=== PATIENT | female | born 1960 | race Caucasian/White ===

== ENCOUNTER 2017-08-18 08:00 | Outpatient (RCR) | payer OTHER, SELFPAY ==
--- NOTE | 2017-08-04 09:14 | HP.PTEVAL_ITS ---
Patient's Visit Information WENDY CANNON is a 57 year old F referred to Physical Therapy by DO WILMAR Liang with a diagnosis of Right Knee. Date of Evaluation: 08/04/17 Physical Therapist: Flower Blanco - Visit Plan Frequency: 3x /Week Duration: 3 Weeks Plan: Focus on hip/core s/s. - Subjective Subjective: Patient reports that she had a bad fall in March on [place] in [facility]- landed on knees first and then face planted. Right knee was worse than left. Went to Dr. Lael in May- has been doing bike and has started doing the arc obedience trainer and strength. Feels the right is lagging behind. agg: impact or going down stairs, pickleball or tennis hurts. Worst: 4 /10 Pain is located on top of the knee cap but Dr. Leal thinks its from the meniscus- no injections. eases: as soon as she stops the pain goes away. Best : 0/10. Feels like when you hit a nerve. Works out here. Sleep: sometimes wakes her up but its better. X-rays- contusion MRI: offered but declined. PMHx : migraines Meds: butabiterol, maxolt. - Objective Posture: FH,RS. Gait: no deviation noted. Stairs:asc/desc 8 recip with poor control with descent. HR/TR: able. SLS: 15 sec with increased muscle activation and sway. Palpation: significantly tender along medial joint line. ROM: WNL. Strength: Ankle: 5/5, Knee: 4+/5, Hip: 4/5 throughout Core: fair plus - Goals Goal 1:: Patient will be I with HEP and progression Goal Time Frame: 4-6 Weeks Goal 2:: Patient will asc/desc 8 stairs recip with no HR and good control Goal Time Frame: 4-6 Weeks Goal 3:: Patient will report 0/10 pain for 1 week Goal Time Frame: 4-6 Weeks Goal 4:: Patient will demo 5/5 strength in hips Goal Time Frame: 4-6 Weeks - Rehabilitation Potential Physical Therapy Diagnosis: Patient presents with hypomobility- she has decreased LE and core s/s leading to poor posture and increased pain with ADL's. Rehabilitation Potential: Good - Anticipated Interventions Patient/Client Instruction: Educate patient on: Benefits of Fitness Program For the Purpose of:: To improve ability to perform ADL's Therapeutic Exercise to Include: Strength training, Endurance training, Balance training, Agility training, Body mechanics, Postural training, Gait and locomotor training, Dynamic Lumbar Stabilization For the Purpose of:: To improve muscle performance and motor function TENS: Yes Cryotherapy (ice pack, ice massage): Yes Thermo therapy (hot pack): Yes Ultrasound (thermal/non thermal): Yes Thank you for the opportunity to evaluate your patient. For Medicare and Medicare HMO plans, please review the plan of care and approve it. It will need to be FAXED BACK to us at [phone] for Medicare purposes. Please let me know if there are questions or concerns regarding this plan of care. Physician Signature: Date:
--- NOTE | 2017-08-18 08:28 | HP.PTDCSUM_ITS ---
HP - PT D/C Summary It has been my pleasure to treat WENDY CANNON under orders from Taylor Rao DO, for the diagnosis of Right Knee for a total of 6 visit (s). Discharge Date: Please see the following information for a summary of their discharge status. - Subjective Subjective: Patient reports that she is doing great- has not had pain since 2 weeks ago. She is very happy and back to all her normal stuff - Pain Right Knee Pain Intensity (Out of 10): 0 - Overall Improvement % Improvement: 100 - Objective Objective/Function: Gait: no deviation. ROM: WNl. Stairs: WNL good control- asc/desc 8' recip no HR. SLS: 30 sec no LOB. Strength: 5/5 Core: good - Goals Goal 1:: Patient will be I with HEP and progression Goal Progress: Goal Met Goal 2:: Patient will asc/desc 8 stairs recip with no HR and good control Goal Progress: Goal Met Goal 3:: Patient will report 0/10 pain for 1 week Goal Progress: Goal Met Goal 4:: Patient will demo 5/5 strength in hips Goal Progress: Goal Met - Plan Plan: HEP: Elliptical: x10 min (alt between fwd and bwd) to increase WBing cardio. Step Up to Balance onto [address]: Green [place], 2x10 bilat. Lateral Band Walks: 32ft with BTB x2 laps. Modified Side Plank Clamshells: BTB , 2x15 bilat. Prone Over SB [place] UE/LE: 3x10. Supine Hip Flex: legs on SB in Bridge with GTB, 3x10 bilat. SB HSC in static Bridge: 3x10. Prone HSC (11): 12 #, 3x10. Seated Hip Abd (4): 35#, 3x10. Seated Hip Add (13): 35#, 3x10. Foam Roll HS, Quad, Calves - followed by static stretching same. Ball Ab Rollouts: 2x12x3. Goblet Squat with Band: Blue 3x8 20#. Split Squat: 2x8 ea leg- 2 AirEx. 1-leg RDL Box Touch: 12 2x8 ea leg. Lateral Step-down: 4 2x12 ea leg - D/C Information If there are questions or concerns regarding this patient's physical therapy, please feel free to call me at [phone]. Thank you for the referral of this patient. Sincerely, Flower Blanco
== END 2017-08-18 19:00 | disposition home or self-care (01) ==
LOC: PT 08:00
PROVIDERS: Family Provider Family Medicine; PCP Family Medicine; Visit Provider Orthopaedic Surgery
DX: M25.561 Pain in right knee (principal); M22.2X1 Patellofemoral disorders, right knee; S83.241D Other tear of medial meniscus, current injury, right knee, subsequent encounter
CPT/HCPCS: 97110; 97161; 97530

== ENCOUNTER 2018-07-21 20:21 | Emergency (ER) | payer OTHER, SELFPAY ==
[2018-07-21 20:22] VITALS: BP 140/87; PULSE 105; RESP 27; TEMP 36.6; O2SAT 99; BMI 23.9
[2018-07-21] MEDS: Ondansetron 4 MG/2 ML Vial IV (20:53)
[2018-07-21] MEDS: Ketorolac 15 MG/ML Vial IV (20:55)
--- NOTE | 2018-07-21 20:56 | CT_ITS ---
STUDY: CT ABDOMEN AND PELVIS WITHOUT CONTRAST REASON FOR EXAM: Female, 58 years old. Left flank pain RADIATION DOSAGE (If Supplied By Facility): CTDIvol = ( 6.17 ) mGy, DLP = ( 322.14 ) mGycm TECHNIQUE: Transaxial images were obtained from the dome of the diaphragm to the symphysis pubis without oral contrast, and without intravenous contrast. Sagittal and coronal images were reconstructed. Individualized dose optimization techniques were used for this CT. COMPARISON: None. FINDINGS: The visualized lung bases are unremarkable. The visualized portions of the heart are within normal limits. Normal liver. Normal gallbladder and extrahepatic biliary system. Normal spleen. Normal pancreas. Normal bilateral adrenal glands. There are at least 5 stones in each kidney measuring 0.2 to 0.7 cm. There is mild left hydronephrosis. There is 0.4 cm left mid abdominal calcifications the L4 level with probable ureteral stone, series 2 image 100/190. There are multiple calcified phleboliths in the pelvis. Normal visualized stomach. Normal small intestine. Normal colon. There is abundant stool The appendix is visualized and appears normal. There is atherosclerotic calcification of the abdominal aorta, without a demonstrated aneurysm. Normal inferior vena cava. Normal retroperitoneum. Normal urinary bladder. Normal visualized uterus. There is no free fluid in the abdomen or pelvis. Normal abdominal wall. Mild degenerative change of the spine. CT/Abdomen/Pelvis without Cont IMPRESSION: Bilateral renal stones. Left ureteral stone with hydronephrosis. Electronically Signed: Chas Diaz MD at 22:00 EST , Service support ,
[2018-07-21] MEDS: Morphine 4 MG/ML Syringe IV (20:57)
--- NOTE | 2018-07-21 20:59 | ED.DCSUM_ITS ---
- ER Visit Summary Date of Service: 07/21/18 Chief Complaint: [Left flank pain] History of Present Illness: The patient is a 58 F [presents to the emergency department complaint of left-sided flank pain that started suddenly around 7:30 PM. Patient rates her pain a 10 out of 10. Patient denies nausea or vomiting with it. She denies any diarrhea. She denies urinary symptoms. Patient states the pain came on suddenly. She denies any injury to her back. Patient states the pain radiates to the front of the abdomen. Patient is never had discomfort like this before.] Physical Examination: [HEENT-PERRLA, EOMI. Cranial nerves II through XII grossly intact. TMs clear. Mucous membranes moist. No adenopathy. Patient writhing in pain on cot. Patient appears uncomfortable. Cardiovascular-regular rate and rhythm without murmur or ectopy Lungs-clear to auscultation, chest wall stable without crepitus or subcu emphysema Abdomen-normoactive bowel sounds, soft. Patient has tenderness palpation over left lower quadrant with some guarding. Patient has CVA tenderness on the left. Extremities-intact ?4, normal range of motion, normal pulses, atraumatic] Test Results: [CBC with it was normal. Chemistries were normal. Urinalysis showed 10-25 RBCs and 0-[address] flank showed a 4 mm stone left mid ureter about L4 level with mild hydronephrosis. Patient also had multiple kidney stones through both kidneys.] Emergency Department Course and Treatment: Patient initially medicated with morphine, Zofran, and Toradol. Patient continued to experience pain and was given half a milligram of Dilaudid. Patient became pain-free.] Treatment Plan: [Patient had urine strainers dispensed to her as well as [place] and Zofran for tonight. Patient will be given a prescription for Zofran and [place] and a referral to urology on-call Dr. Leroy Sanchez. Patient advised to return if worsening pain or fever, vomiting, or condition should worsen anyway.] Disposition: [Discharged home in stable condition] Impression: [Kidney stone with colic] This note was generated with [employer] dictation software. It may contain incorrect words, spelling, and punctuation that were not noted in review of the chart prior to signing ED Disposition - Plan for ED Patient: Chief Complaint: Flank Pain Referrals: Noel Farrell MD [Primary Care Provider] -
[2018-07-21] MEDS: 0.9% Normal Saline 1,000 ML 125 ML IV (21:00)
[2018-07-21] MEDS: HYDROmorphone 1 MG/ML Syringe IV (21:11)
[2018-07-21 21:16] LABS: Absolute Lymphocyte Count 2.77 X10^3/ul (0.83-4.51); Absolute Neutrophil Count 2.6 X10^3/uL (2.0-7.7); Basophil# 0.03 X10^3/uL; Basophil% 0.5 % (0-1); Eosinophil# 0.04 X10^3/uL; Eosinophils% 0.7 % (0-5); Hematocrit 37.1 % (37-47); Hemoglobin 12.3 g/dl (12.0-15.0); Lymphocyte # 2.77 X10^3/ul (4.0); Lymphocyte % 47.2 % (19-41); Mean Corp Hgb Conc 33.2 g/gl (32-36); Mean Corpuscular Hgb 32.1 pg (27.0-32.0); Mean Corpuscular Volume 96.9 fL (81-99); Mean Platelet Vol. 10.5 fl (6.2-12.0); Monocyte# 0.46 X10^3/uL; Monocyte% 7.8 % (0-10); Neutrophil # 2.57 X10^3/uL (2.7-7.7); Neutrophil % 43.8 % (47-70); Platelet Count 206 K/mm3 (150-450); RBC Distribution Width CV 13.4 % (11.6-14.6); RBC Distribution Width SD 47.5 fl (35.1-43.9); Red Blood Count 3.83 M/mm3 (4.2-5.4); White Blood Count 5.9 K/mm3 (4.4-11.0)
[2018-07-21 21:17] LABS: POSITIVE COUNT NO; POSITIVE DIFFERENTIAL NO; POSITIVE MORPHOLOGY NO
[2018-07-21 21:23] LABS: Anion Gap 11 (5-15); BUN 22 mg/dL (7-18); BUN/Creat Ratio 23.6 RATIO (10-20); Calcium,Total 9.2 mg/dL (8.5-10.1); Chloride 105 mmol/L (98-107); Creatinine, Serum 0.93 mg/dL (0.55-1.02); EST Glomerular Filtration Rate 65 mL/min (>60); Est Glom Filt Rate - Afr Amer 79 mL/min (>60); Estimated Creatinine Clearance 53.21 ml/min; Glucose 162 mg/dL (74-106); Potassium 3.5 mmol/L (3.5-5.1); Sodium Level 140 mmol/L (136-145)
[2018-07-21 22:55] LABS: Bacteria 0 SEEN /hpf (None Seen); Mucous, Urine 0 SEEN /hpf (<or=2+)
[2018-07-21 23:00] VITALS: BP 124/80; PULSE 81; RESP 16; O2SAT 100
[2018-07-21 23:03] LABS: Color, Urine Yellow (Yellow); Glucose, Dipstick Normal (Normal); Ketone-Dipstick Negative (Negative); Leukocyte Esterase-Dipstick Negative /ul (Negative); Nitrite-Dipstick Negative (Negative); Occult Blood-Urine 150 /ul (Negative); Protein-Dipstick Negative (Negative); Urine Bilirubin Dipstick Negative (Negative); Urine Clarity Clear (Clear); Urine Urobilinogen Normal (Normal)
[2018-07-21 23:09] LABS: Red Blood Cells-Urine 10-25 SEEN /hpf (0-5); Squamous Epithelial Cells - UA 0-5 SEEN /hpf (5-10); White Blood Cells 0-5 SEEN /hpf (0-5)
[2018-07-21] MEDS: proMETHazine 25 MG/ML Syringe 12.5 MG IV (23:13)
--- NOTE | 2018-07-21 23:28 | ED.DEP ---
ED Disposition - Plan for ED Patient: Chief Complaint: Flank Pain Instructions: ED Stone Renal W Colic Prescriptions: Hydrocodone Bitart/Apap 5-325 [[place] 5MG-325MG] 1 tab PO Q4H PRN PRN 2 Days #20 tab PRN Reason: Pain Ondansetron [Zofran Odt] 4 mg PO Q8H PRN PRN #10 tab PRN Reason: Nausea Naproxen [Naprosyn] 500 mg PO BID PRN #20 tab Referrals: Noel Farrell MD [Primary Care Provider] - Lavelle Sanchez MD [STAFF PHYSICIAN] - 3-5 Days
[2018-07-21] MEDS: Ondansetron ODT 4 MG Tablet PO (23:48)
[2018-07-21] MEDS: HYDROcodone Bitartrate/Apap 5/325 Tablet PO (23:48)
[2018-07-21 23:50] VITALS: BP 124/80; PULSE 80; RESP 16; O2SAT 99
== END 2018-07-21 23:51 | disposition home or self-care (01) ==
PROVIDERS: Emergency Provider Emergency Medicine; Family Provider Family Medicine; PCP Family Medicine
DX: R10.9 Unspecified abdominal pain (principal); N13.2 Hydronephrosis with renal and ureteral calculous obstruction
CPT/HCPCS: 74176; 80048; 81001; 85025; 96361; 96374; 96375; 99284; J7030; A4216; J2405

== ENCOUNTER → 2018-07-23 08:42 | Outpatient (CLI) | payer OTHER, SELFPAY ==
[2018-07-21 20:22] VITALS: BMI 23.9
[2018-07-23 10:03] LABS: PTHIN 75.9 pg/mL (18.4-80.1)
[2018-07-23 10:43] LABS: Anion Gap 10 (5-15); BUN 24 mg/dL (7-18); Calcium,Total 8.6 mg/dL (8.5-10.1); Chloride 107 mmol/L (98-107); Creatinine, Serum 1.09 mg/dL (0.55-1.02); EST Glomerular Filtration Rate 54 mL/min (>60); Est Glom Filt Rate - Afr Amer 66 mL/min (>60); Glucose 88 mg/dL (74-106); Potassium 3.9 mmol/L (3.5-5.1); Sodium Level 142 mmol/L (136-145)
== END ==
PROVIDERS: Family Provider Family Medicine; PCP Family Medicine; Referring Provider Urology; Visit Provider Urology
DX: N20.0 Calculus of kidney (principal)
CPT/HCPCS: 36415; 80048; 83735; 83970; 84100

== ENCOUNTER → 2018-07-27 16:56 | Outpatient (CLI) | payer OTHER, SELFPAY ==
[2018-07-21 20:22] VITALS: BMI 23.9
--- NOTE | 2018-07-27 | CALC_PTH ---
PATIENT: WENDY CANNON LOC: [facility] U#:[id number] AGE/SX: 64/F ROOM: RE07/27/[address]: Dr. Lavelle Sanchez MD : 1960 BED: DIS: SPEC #: [id number] RECD: 07/28/18 10:59 STATUS: CALEB LIEN #: [id number] ZANE: 07/27/18 00:[address]: Lavelle Sanchez DEPT: SURGICAL PATHOLOGY RECD BY: Barak Beaver ENTERED: 07/28/18 11:00 SP TYPE: Calculi OTHR DR: Dr. Noel Farrell MD Tissues: CALCULI Procedures: Surgery Specimen Level I HEADER OPERATION: Not noted PRE-OP DIAGNOSIS: N20.0 TISSUE SUBMITTED: Stone analysis GROSS DIAGNOSIS A fragment of stone, submitted for stone analysis. SJ:jez 07/28/18 COMMENT The calculus is submitted in its entirety for chemical stone analysis. The results from this study will be reported separately. GROSS DESCRIPTION Received is one container labeled with the patient's name and not further designated. The specimen consists of a fragment of brownish-black stone measuring 0.3 x 0.2 x 0.2 cm. The entire specimen is submitted for stone analysis. / SJ:jez 07/28/18 CPT: 84527
== END ==
PROVIDERS: Family Provider Family Medicine; PCP Family Medicine; Referring Provider Urology; Visit Provider Urology
DX: N20.0 Calculus of kidney (principal)
CPT/HCPCS: 88300

== ENCOUNTER → 2018-08-05 07:39 | Outpatient (CLI) | payer OTHER, SELFPAY ==
[2018-07-21 20:22] VITALS: BMI 23.9
== END ==
PROVIDERS: Family Provider Family Medicine; PCP Family Medicine; Referring Provider Family Medicine; Visit Provider Family Medicine
DX: Z12.31 Encounter for screening mammogram for malignant neoplasm of breast (principal)

== ENCOUNTER → 2018-09-02 09:23 | Outpatient (CLI) | payer OTHER, SELFPAY ==
[2018-08-05 10:06] VITALS: BMI 23.9
--- NOTE | 2018-09-02 09:25 | BI_ITS ---
MAMMOGRAPHY - BILATERAL SCREENING REASON FOR EXAM: Female, 58 years old. Routine annual screening examination. PERTINENT HISTORY: Non-contributory. TECHNIQUE: Digital bilateral breast aisha (3D mammographic acquisition) in the CC and MLO projections. 2-D mediolateral oblique (MLO) and craniocaudad (CC) views of both breasts were obtained. CAD: Full Field Digital Mammography with Computer Added Detection was performed. COMPARISON: Comparison is made with prior study. 2017 and May 20, 2016. FINDINGS: Breast Composition: The breasts are heterogeneously dense, which may obscure small masses. There are no dominant masses or suspicious calcifications. No other significant abnormalities are identified. There has been no significant change since the prior study. BI/SCREENING MAMM (CAD), BILAT IMPRESSION: Stable bilateral screening mammogram. Yearly follow-up mammogram recommended. (A) ASSESSMENT CATEGORY: BIRADS Category 1: Negative. A letter regarding these results will be sent to the patient by the facility within 30 days. Approximately 10% of breast cancers are not detected by mammography. A normal mammogram should not delay biopsy of a clinically suspicious abnormality. [id number] Electronically Signed: Devendra Valentin MD at 10:41 EST , Service support ,
== END ==
PROVIDERS: Family Provider Family Medicine; PCP Family Medicine; Visit Provider Family Medicine
DX: Z12.31 Encounter for screening mammogram for malignant neoplasm of breast (principal)
CPT/HCPCS: 77063; 77067

== ENCOUNTER → 2018-09-03 08:19 | Outpatient (CLI) | payer OTHER, SELFPAY ==
[2018-08-05 10:06] VITALS: BMI 23.9
--- NOTE | 2018-09-03 08:25 | RAD_ITS ---
STUDY: X-RAY - ABDOMEN/PELVIS REASON FOR EXAM: Female, 58 years old. Abdominal pain TECHNIQUE: 2 views COMPARISON: None. FINDINGS: There is moderate stool in the colon. There is NO obstruction or fecal impaction. There is NO bowel wall thickening or free air. There multiple tiny bilateral kidney stones. There are phleboliths in the pelvis. Normal soft tissue structures. Normal visualized osseous structures. RAD/Abdomen Single View IMPRESSION: There is moderate stool in the colon. There is NO obstruction or fecal impaction. There is NO bowel wall thickening or free air. There multiple tiny bilateral kidney stones. Electronically Signed: Tobi Campbell MD at 7:26 EST , Service support ,
== END ==
PROVIDERS: Family Provider Family Medicine; PCP Family Medicine; Referring Provider Urology; Visit Provider Urology
DX: N20.0 Calculus of kidney (principal)
CPT/HCPCS: 74018

== ENCOUNTER 2018-10-02 08:58 | Day surgery (SDC) | payer OTHER, SELFPAY ==
[2018-08-05 10:06] VITALS: BMI 23.9
--- NOTE | 2018-10-01 17:50 | HP.PCM_ITS ---
History and Physical Date of Admission: 10/02/18 Patient returns, 58-year-old female has a history recurrent kidney stone disease. Workup in the past for hyperparathyroidism was negative appears to be of calcium stones recently pass a stone. She passed stones frequently. On KUB she has multiple fragments all fairly small but on the right kidney one or two fragments in the left kidney we talked about the options of observation or treatment he's with shockwave lithotripsy were set her up for shockwave treatment ALLERGIES: None MEDICATIONS: Alendronate Sodium 70 mg tablet Butalbital Calcium Multivitamin Naprosyn [place] Rizatriptan 10 mg tablet Zofran PSH: Cystoscopy - 2016 NON- PSH: Elbow Arthroscopy/surgery Patient not documented to have received pneumococcal vaccination PMH: Calculus of kidney with calculus of ureter - 07/23/2018 Asymptomatic microscopic hematuria - 10/29/2016 Calculus of kidney - 10/29/2016, - 2015, - 2015, - 2014 Other microscopic hematuria - 2015, - 2015, - 2014, - 2014 Unspecified urinary incontinence - 2015, - 2015 Personal history of urinary (tract) infections - 2014 Personal history of urinary calculi - 2014, - 2014 Frequency of micturition - 2014 NON- PMH: Headache Migraine, unsp, not intractable, without status migrainosus Other asthma Immunizations: None FAMILY HISTORY: None SOCIAL HISTORY: Marital Status: Preferred Language: Moroccan; Ethnicity: Not Or ; Race: White Current Smoking Status: Patient has never smoked. Tobacco Use Assessment Completed: Used Smokeless in last 30 days? Smoking cessation counseling was provided. Does not use smokeless tobacco. Drinks 2 drinks per week. Does not use drugs. Drinks 1 caffeinated drink per day. Has not had a blood transfusion. REVIEW OF SYSTEMS: Constitutional: Patient denies fever, chills, weight loss, and weight gain. Genitourinary: Patient reports blood in the urine and history of stones. Patient denies frequent urination, urinary retention, get up at night to void, leakage of urine, painful urination, frequent uti's, difficulty starting stream, weak stream/scanty, and bedwetting. VITAL SIGNS: 09/03/2018 08:47 AM Weight 135 lb / 61.23 kg Height 63 in / 160.02 cm BP 128/72 mmHg BMI 23.9 kg/m? - BMI Counseling was provided. MULTI-SYSTEM PHYSICAL EXAMINATION: Constitutional: Well-nourished. No physical deformities. Normally developed. Good grooming. Neck: Neck symmetrical, not swollen. Normal tracheal position. Respiratory: No labored breathing, no use of accessory muscles. Cardiovascular: Normal temperature, normal extremity pulses, no swelling, no varicosities. Lymphatic: No enlargement of neck, axillae, groin. Skin: No paleness, no jaundice, no cyanosis. No lesion, no ulcer, no rash. Neurologic / Psychiatric: Oriented to time, oriented to place, oriented to person. No depression, no anxiety, no agitation. Gastrointestinal: No mass, no tenderness, no rigidity, non obese abdomen. Eyes: Normal conjunctivae. Normal eyelids. Ears, Nose, Mouth, and Throat: Left ear no scars, no lesions, no masses. Right ear no scars, no lesions, no masses. Nose no scars, no lesions, no masses. Normal hearing. Normal lips. Musculoskeletal: Normal gait and station of head and neck. PAST DATA REVIEWED: Source Of History: Patient PROCEDURES: Urinalysis - [address] Dipstick Dipstick Cont'd Specimen: Voided Blood: Neg Appearance: Clear pH: 5.0 Color: Yellow Protein: Neg Glucose: Normal Urobilinogen: Neg Bilirubin: Neg Nitrites: Neg Ketones: Neg Leukocyte Esterase: Neg ASSESSMENT: ICD-10 Details 1 : Calculus of kidney - N20.0 2 Other microscopic hematuria - R31.29 PLAN: Schedule Procedure: Unspecified Date - Renal ESWL - 23293, right Document Letter(s): Created for Patient: Clinical Summary The risks, benefits, and some of the possible complications of the proposed procedure were discussed with the patient at length and in detail including the possible need to wear a temporary ureteral stent, do multiple ESWL procedures, or other procedures. The possible need for postoperative treatments including further surgical procedures, a metabolic stone evaluation, and others was discussed with the patient. The fact that this operative procedure will not to cure the underlying stone disease and that the patient might have recurrent problems with stone disease was discussed. The general risks of the operative procedure and the perioperative period were discussed with the patient at length and in detail including swelling, pain, nausea, vomiting, fever, chills, infection, wound infection, sepsis, renal failure, internal or external bleeding, intraoperative bowel, organ or vascular injuries, the need for blood transfusions, deep venous thrombosis or blood clots, pulmonary embolus, and others. All of the patient's questions were answered and he voiced an understanding of these risks, benefits and possible complications. The patient gave fully informed consent to proceed with the procedure. Notes: 58-year-old female history recurrent kidney stone disease, gave a handout on how to prevent kidney stones. Parathyroid hormone in the past is been normal. Will set her up for right ESWL for multiple small stones in the right kidney may consider left ESWL later on. We picked out a date for her in September before she is traveling.
--- NOTE | 2018-10-02 09:14 | RAD_ITS ---
STUDY: X-RAY - ABDOMEN/PELVIS REASON FOR EXAM: Female, 58 years old. Kidney stones TECHNIQUE: Single AP view of the abdomen / pelvis. COMPARISON: Abdominal x-ray 09/03/2018 FINDINGS: There are multiple 2-3 mm stones overlying the right renal shadow, these were seen on prior exam. There are multiple left renal calcifications, the largest of these measure 3 mm overlying the left renal upper pole and 7 x 5 mm overlying the left renal lower pole. These findings are similar to prior exam. There are no calcifications overlying the ureteral course bilaterally. There are pelvic phleboliths noted. There is marked diffuse constipation. There is no demonstrated free abdominal air. The visualized liver, spleen and kidneys are grossly normal in size and morphology. Normal soft tissue structures. Normal visualized osseous structures. RAD/Abdomen Single View IMPRESSION: Multiple bilateral renal stones are not significantly changed since 09/03/2018. No stones overlying the ureteral course bilaterally. Marked constipation. Electronically Signed: Randall Soni, at 10:28 EDT Tel , Service support ,
[2018-10-02 09:47] VITALS: BP 146/94; PULSE 73; RESP 18; TEMP 36.4; O2SAT 100; BMI 24.3
[2018-10-02] MEDS: Cefazolin 2 GM in 0.9% Normal Saline 100 ML IV (11:49)
--- NOTE | 2018-10-02 12:43 | DCINST_ITS ---
Discharge Diet: Light diet - advance as tolerated Discharge Activity: Return to Normal Activity Call your doctor if your incision/area has: Sudden Increased Bleeding Call your doctor if you observe: Fever of 101 or Higher Instructions: Shock Wave Lithotripsy Allergies/Adverse Reactions: Allergies shellfish Allergy (Mild, Uncoded 09/28/18 13:11) unknown Medications to take at Discharge jdxlvsdabi-guwudhxfxkyrj-grexjxjm 50 mg-300 mg-40 mg capsule 1 cap PO Q4H PRN 08/05/18 estradiol 10 mcg vaginal tablet 10 mcg VAGINAL .COMPLEX #24 tab 08/05/18 rizatriptan 10 mg tablet 10 mg PO ONCE PRN 08/05/18 Fexofenadine/Pseudoephedrine [Tamra-D 12 Hour Tablet] 1 each PO DAILY PRN 09/28/18 Multivitamins,Therapeutic [Multivitamin] 1 tablet PO DAILY 09/28/18 Pantoprazole Sodium [Protonix] 40 mg PO DAILY 09/28/18 Acetaminophen [Tylenol Extra Strength] 500 mg PO Q4H PRN PRN #20 tablet 10/02/18 Ibuprofen 600 mg PO Q6H PRN PRN #20 tablet 10/02/18 The following prescriptions were given: Acetaminophen [Tylenol Extra Strength] 500 mg PO Q4H PRN PRN #20 tablet PRN Reason: Pain Ibuprofen 600 mg PO Q6H PRN PRN #20 tablet PRN Reason: Pain Primary Care Physician: Noel Farrell MD [Primary Care Provider] - Test Results: Test results from this visit will be discussed in further detail at your follow- up appointment, if applicable. Please Follow Up With: Lavelle Sanchez MD When: in 2 weeks, please call to make an appointment.
--- NOTE | 2018-10-02 12:43 | PCM.OPRPT ---
Report of Operation Date of Procedure: 10/02/18 Pre-Operative Diagnosis: Multiple right renal calculi Post-Operative Diagnosis: Same Surgery/Procedure Performed:: Right extracorporeal shockwave lithotripsy Description of Surgical Findings:: Indication 58-year-old female with multiple stones in the right kidney we talked about the management options today were to proceed with shockwave lithotripsy to break the small stones up a little tiny pieces that should pass on her own we do not plan to place a stent today. 58-year-old female taken back to the operating room at the smooth induction of anesthesia she was placed supine on the table we then located the stones in the kidney on the right kidney she has multiple stones and multiple papilla of the calyces of the kidney was started in the upper pole went to the midpole and then completed shockwave lithotripsy a total of 3000 shockwaves was delivered to the stone fragments in the upper pole midpole and some in the lower pole after the shockwave delivery many the stone fragments broke up really nicely still some fragments were visible. No stent was placed. Plan to see her back in a few weeks with an x-ray for follow-up. Type of Anesthesia:: General Drains: none - Admit VTE Documentation VTE Present on Admission: No VTE Mechan Device Prophylaxis: SCD's
[2018-10-02 12:52] VITALS: BP 106/65; BP 146/94; PULSE 79; RESP 14; TEMP 36.5; O2SAT 95
[2018-10-02 13:00] VITALS: BP 110/72; BP 146/94; PULSE 69; RESP 16; O2SAT 97
[2018-10-02] MEDS: Ketorolac 15 MG/ML Vial IV (13:13)
[2018-10-02 13:15] VITALS: BP 126/86; BP 146/94; PULSE 68; RESP 16; O2SAT 99
[2018-10-02 13:35] VITALS: BP 129/81; BP 146/94; PULSE 62; RESP 16; TEMP 36.4; O2SAT 99
[2018-10-02 14:06] VITALS: BP 123/76; BP 146/94; PULSE 76; RESP 18; TEMP 36.6; O2SAT 99
--- NOTE | 2018-10-02 14:06 | SUR.PHASEII ---
pt back from [facility]- initial assessment done but charted late
== END 2018-10-02 14:07 | disposition home or self-care (01) ==
LOC: SDC 08:58 → AC 09:01
PROVIDERS: Family Provider Family Medicine; PCP Family Medicine; Referring Provider Urology; Visit Provider Urology
PROC: (CPT 50590; principal; 2018-10-02 10:30)
DX: N20.0 Calculus of kidney (principal); R31.29 Other microscopic hematuria; K21.9 Gastro-esophageal reflux disease without esophagitis; Z87.442 Personal history of urinary calculi
CPT/HCPCS: 50590; 74018; J7120; J2405

== ENCOUNTER → 2018-11-09 14:37 | Outpatient (CLI) | payer OTHER, SELFPAY ==
--- NOTE | 2018-11-09 14:45 | RAD_ITS ---
STUDY: X-RAY - ABDOMEN/PELVIS REASON FOR EXAM: Female, 58 years old. Kidney stones TECHNIQUE: 2 views COMPARISON: October 02, 2018 FINDINGS: Normal visualized lung bases. There is an unremarkable bowel gas pattern. There is colonic fecal retention There is no demonstrated free abdominal air. Stable calcifications over the left renal shadow. Right renal shadow is not well-defined due to overlying fecal matter. Faint stable calcifications are noted over the lower half of the right renal shadow. Normal soft tissue structures. Normal visualized osseous structures. RAD/Abdomen Single View IMPRESSION: Stable bilateral renal calcific densities similar to previous study. Electronically Signed: Rj Pascal DO at 23:55 EDT Tel [phone], Service support ,
== END ==
PROVIDERS: Family Provider Family Medicine; PCP Family Medicine; Referring Provider Urology; Visit Provider Urology
DX: N20.0 Calculus of kidney (principal)
CPT/HCPCS: 74018

== ENCOUNTER → 2019-03-01 08:36 | Outpatient (CLI) | payer OTHER, SELFPAY ==
[2019-03-01 10:44] LABS: Absolute Lymphocyte Count 1.51 X10^3/uL (0.83-4.51); Absolute Neutrophil Count 2.5 X10^3/uL (2.0-7.7); Basophil# 0.03 X10^3/uL; Basophil% 0.6 % (0-1); Eosinophil# 0.09 X10^3/uL; Eosinophils% 1.9 % (0-5); Hematocrit 38.2 % (37-47); Hemoglobin 12.5 g/dL (12.0-15.0); Lymphocyte # 1.51 X10^3/ul (4.0); Lymphocyte % 32.2 % (19-41); Mean Corp Hgb Conc 32.7 g/dL (32-36); Mean Corpuscular Hgb 32.4 pg (27.0-32.0); Mean Platelet Vol. 10.4 fl (6.2-12.0); Monocyte# 0.57 X10^3/uL; Monocyte% 12.2 % (0-10); NRBC Flagged by Analyzer 0 % (0-5); Neutrophil # 2.48 X10^3/uL (2.7-7.7); Neutrophil % 52.9 % (47-70); Platelet Count 221 K/mm3 (150-450); RBC Distribution Width CV 13.4 % (11.6-14.6); RBC Distribution Width SD 49.6 fl (35.1-43.9); Red Blood Count 3.86 M/mm3 (4.2-5.4); White Blood Count 4.7 K/mm3 (4.4-11.0)
[2019-03-01 11:27] LABS: Anion Gap 4 (5-15); BUN 18 mg/dL (7-18); BUN/Creat Ratio 20.9 RATIO (10-20); Calcium,Total 8.9 mg/dL (8.5-10.1); Chloride 107 mmol/L (98-107); Cholesterol 185 mg/dL (200); Creatinine, Serum 0.86 mg/dL (0.55-1.02); EST Glomerular Filtration Rate 71 mL/min (>60); Est Glom Filt Rate - Afr Amer 86 mL/min (>60); Glucose 88 mg/dL (74-106); High Density Lipoprotein 71 mg/dL; Sodium Level 141 mmol/L (136-145); Triglycerides 79 mg/dL; Very Low Density Lipoprotein 16 mg/dL (5-40)
[2019-03-01 11:30] LABS: Vitamin D,25 Hydroxy 26.7 ng/mL (29.95-100.01)
== END ==
PROVIDERS: Family Provider Family Medicine; PCP Family Medicine; Referring Provider Family Medicine; Visit Provider Family Medicine
DX: M85.80 Other specified disorders of bone density and structure, unspecified site (principal); R03.0 Elevated blood-pressure reading, without diagnosis of hypertension
CPT/HCPCS: 36415; 80048; 80061; 82306; 85025

== ENCOUNTER → 2019-05-26 08:16 | Outpatient (CLI) | payer OTHER, SELFPAY ==
--- NOTE | 2019-05-26 08:24 | BD_ITS ---
STUDY: DUAL ENERGY X-RAY ABSORPTIOMETRY / DXA REASON FOR EXAM: Female, 58 years old. The patient is postmenopausal. No loss of height. TECHNIQUE: Bone Mineral Density (BMD) measurements of lumbar spine and bilateral hips were obtained. COMPARISON: None. FINDINGS: Lumbar Spine (L1-L4): g/cm2 (1.317) / T-score (1.0) / Z-score (2.2) Findings are suggestive of normal bone density with a low fracture risk. Left Femur Total: g/cm2 (0.845) / T-score (-1.3) / Z-score (-0.3) Left Femoral Neck: g/cm2 (0.837) / T-score (-1.4) / Z-score (-0.2) Right Femur Total: g/cm2 (0.807) / T-score (-1.6) / Z-score (-0.6) Right Femoral Neck: g/cm2 (0.849) / T-score (-1.4) / Z-score (-0.1) BD/Dexa Bone Density Study IMPRESSION: The patient is considered osteopenic as outlined below according to World Kele[employer] Organization (WHO) criteria with a moderate fracture risk. Reference Information: The T-score is the number of standard deviations above or below the standard which is normal for young adults at their peak bone mineral density. The World Health Organization (WHO) interprets the T-scores as follows: Above -1 Normal bone density Between -1 and -2.5 Osteopenia Equal to / or below -2.5 Osteoporosis As a practical clinical guideline, osteopenia may be graded as follows: Mild -1 through -1.5 Moderate -1.6 through -2.0 Severe -2.1 through -2.4 The Z-score is the number of standard deviations above or below age-matched controls. A Z-score of less than -1.5 would be considered abnormal. References: 1. NIH Osteoporosis and Related Bone Diseases http://www.osteo.org 2. International Society for Clinical Densitometry http://www.iscd.org 3. National Osteoporosis Foundation http://www.nof.org Electronically Signed: Devendra Valentin, at 10:24 EST , Service support ,
== END ==
PROVIDERS: Family Provider Family Medicine; PCP Family Medicine; Referring Provider Family Medicine; Visit Provider Family Medicine
DX: M85.80 Other specified disorders of bone density and structure, unspecified site (principal)
CPT/HCPCS: 77080

== ENCOUNTER → 2019-06-17 08:57 | Outpatient (CLI) | payer OTHER, SELFPAY ==
[2019-06-17 10:26] LABS: Absolute Lymphocyte Count 1.03 X10^3/uL (0.83-4.51); Absolute Neutrophil Count 3.6 X10^3/uL (2.0-7.7); Basophil# 0.04 X10^3/uL; Basophil% 0.8 % (0-1); Eosinophil# 0.05 X10^3/uL; Eosinophils% 0.9 % (0-5); Hematocrit 40.4 % (37-47); Lymphocyte # 1.03 X10^3/ul (4.0); Lymphocyte % 19.4 % (19-41); Mean Corp Hgb Conc 32.2 g/dL (32-36); Mean Corpuscular Hgb 31.6 pg (27.0-32.0); Mean Corpuscular Volume 98.3 fL (81-99); Mean Platelet Vol. 10.4 fl (6.2-12.0); Monocyte# 0.57 X10^3/uL; Monocyte% 10.7 % (0-10); NRBC Flagged by Analyzer 0 % (0-5); Neutrophil # 3.62 X10^3/uL (2.7-7.7); Platelet Count 215 K/mm3 (150-450); RBC Distribution Width CV 13.5 % (11.6-14.6); RBC Distribution Width SD 49.1 fl (35.1-43.9); Red Blood Count 4.11 M/mm3 (4.2-5.4); White Blood Count 5.3 K/mm3 (4.4-11.0)
[2019-06-17 10:44] LABS: Vitamin D,25 Hydroxy 38.8 ng/mL (29.95-100.01)
[2019-06-17 10:46] LABS: ALB/GLOB Ratio 1.1 RATIO (0.9-2.4); AST(SGOT) 21 U/L (15-37); Alanine Aminotransfer ALT/SGPT 24 U/L (13-56); Albumin, Serum 4.1 g/dL (3.2-5.0); Alkaline Phosphatase 93 U/L (45-117); Anion Gap 5 (5-15); BUN 17 mg/dL (7-18); BUN/Creat Ratio 17.4 RATIO (10-20); Calcium,Total 8.8 mg/dL (8.5-10.1); Chloride 106 mmol/L (98-107); Creatinine, Serum 0.98 mg/dL (0.55-1.02); EST Glomerular Filtration Rate 61 mL/min (>60); Est Glom Filt Rate - Afr Amer 74 mL/min (>60); Globulin 3.6 g/dL (2.2-4.2); Glucose 86 mg/dL (74-106); Magnesium 2.1 mg/dL (1.6-2.6); Phosphorus 3.1 mg/dL (2.5-4.9); Potassium 3.9 mmol/L (3.5-5.1); Protein, Total 7.7 g/dL (6.4-8.2); Sodium Level 140 mmol/L (136-145)
== END ==
PROVIDERS: Family Provider Family Medicine; PCP Family Medicine; Referring Provider Family Medicine; Visit Provider Family Medicine
DX: M85.80 Other specified disorders of bone density and structure, unspecified site (principal); K21.9 Gastro-esophageal reflux disease without esophagitis; G43.909 Migraine, unspecified, not intractable, without status migrainosus
CPT/HCPCS: 36415; 80053; 82306; 83735; 84100; 85025

== ENCOUNTER 2019-06-22 06:52 | Day surgery (SDC) | payer OTHER, SELFPAY ==
[2019-06-22 07:12] VITALS: BP 134/94; PULSE 78; RESP 16; TEMP 36.3; O2SAT 98; BMI 24.4
[2019-06-22] MEDS: Lactated Ringers 1,000 ML 100 ML IV (07:21)
--- NOTE | 2019-06-22 07:44 | H&P.OPEN ---
History of Present Illness Date of Admission: 06/22/19 The patient is a 58 year old F who is here for screening colonoscopy. The patient reports her last colonoscopy was 10 years ago and was normal. She has no family history of colon cancer in the immediate family only in her grandfather. She has no blood in her stool or abdominal pain. Past Medical/Surgical History - Planned Operation Planned Operative Procedure/s: COLONOSCOPY Date of Operative Procedure: 06/22/19 Permit Signed: No S.O.S: No Is This Patient Having a Total Joint: No - Previous Hospitalizations/Surgeries HX Hospitalizations: No HX of Surgeries: ELBOW ULNAR NERVE. TONSILLECTOMY. COLONOSCOPY/EGD. ESWL Any Problems With Anesthesia: No You/Your Family Experience Fever (Hyperthermia) With Anes: No Cholinesterase deficiency: No - Cardiovascular Hx Chest Pain within Last 2 months: No Hx of Irregular Heartbeat and/or Afib: No Hx Heart Attack: No Hx Congestive Heart Failure: No Hx Rheumatic Fever: No Hx Hypertension: No Hx Internal Defibrillator: No Hx Pacemaker: No Hx Cardiac Catheterization: No Hx Cardiac Surgery/Stents/Etc.: No Hx Stress Test: Yes - STRESS ECHO 2017/[facility] HX Edema: No Hx Pain in Legs when Walking/Leg Cramps: No - Respiratory Chronic Cough: No HX of Shortness of Breath: No Hoarseness: No Hx Chronic Obstructive Pulmonary Disease (COPD): No Hx Asthma: Yes - NO INHALERS Hx Emphysema: No Hx Sleep Apnea: No Hx Oxygen Use at Home: No Hx Respiratory Tract Infection/Cold (presently): No Do You Snore Loudly (louder than talking or can be heard): No Do You Often Feel Tired/ Fatigued/ Sleepy Dring Daytime?: No Has Anyone Observed You Stop Breathing During Sleep?: No Result (for STOP score): Negative Hx Smoking: No Smoking Status: Never smoker - Gastrointestinal Hx Gastroesophageal Reflux: Yes Controlled With Meds: Yes - PROTONIX Hx Gastrointestinal Disorders: No Hx Gastrointestinal Bleed: No Hx Ulcer: No Hx Hiatal Hernia: No Difficulty Chewing/Swallowing: No Recent Onset of Swallowing Problems: No Special diet followed at home: No Hx Unplanned Weight Loss of 20#: No HX Unplanned Weight Gain of 20#: No - Neurological Hx Seizures: No HX Syncope/Blackout Spells/Unconsciousness: No Hx CVA/Stroke: No Hx Transient Ischemic Attacks (TIA): No Hx Multiple Sclerosis: No Hx Parkinson's Disease: No Hx Head/Neck Injury: No Hx Headaches: Yes - MIGRAINES Hx Back Injury/Pain: No Recent Onset of Speech Difficulty: No Restless Legs: No Does patient have nerve stimulator: No Patient instructed to have device shut off: No Rep notified?: No - Blood Disorder Hx Leukemia: No Bleeding Tendencies: No Hx Deep Vein Thrombosis: No Hx High Cholesterol: No Blood Transmitted Disease: No Hx Hepatitis: No Hx Cirrhosis: No Hx Anemia: No Hx Blood Disorders: No - Reproduction : No Is Patient Lactating: No Hx Hysterectomy: No Hx Tubal Ligation: No Are You Post Menopause: Yes - Genitourinary Hx Renal Disease: No - HX STONES Hx Dialysis: No - Musculoskeletal Hx Arthritis: No Hx Rheumatoid Arthritis: No Hx Gout: No Recent Onset of an Orthopedic Problem: No - Endocrine Hx Diabetes: No Thyroid Disease: No Hx Steroid Therapy: No - Psycho/Social Hx Substance Use: No Hx Alcohol Use: No Hx Anxiety: No Hx Depression: No Mental Illness: No Hx Dementia: No - Miscellaneous Hx Cancer: No Recent Exposure to Contagious Disease: No Active MRSA: No Hx of C-Diff: No Any Loose Teeth: No Allergies shellfish Allergy (Mild, Uncoded 09/28/18 13:11) unknown - Discharge Is Pt Admitted From a [facility], or a Senior Living: No Who Could Help: After D/C, Where Do you Plan to Go: Return Home - Physical Exam Vitals/I&O's: Vital Signs Temp Pulse Resp BP Pulse Ox 97.4 F L 78 16 134/94 H 98 06/22/19 07:12 06/22/19 07:12 06/22/19 07:12 06/22/19 07:12 06/22/19 07:12 Oxygen Delivery Method Room Air Weight: 138 lb 0.15 oz Body Mass Index (BMI) 24.4 General: Alert, Oriented x3 Lungs: Normal air movement Cardiovascular: Regular rate, Regular Rhythm Abdomen: Soft, Non Tender, Non-Distended Current Medications Lactated Ringer's () 1,000 mls @ 100 mls/hr IV .Q10H NADINE Last Admin: 06/22/19 07:21 Dose: 100 mls/hr Documented by: Assessment/Plan All Active Problems (Last Reviewed 08/05/18 @ 09:55 by Colette Merchant) Kidney calculi (Acute) 58-year-old female for screening colonoscopy I explained endoscopy in detail to the patient. I explained the risks including but not limited to stroke or heart attack with anesthesia, perforation of the GI tract, bleeding, infection. I explained that any of these could necessitate further emergency surgery. The patient understands and all questions were answered sufficiently. The patient wishes to proceed with procedure. Jamal Bojorquez MD Pager: [facility] [address] [place] [address] [address] [place] [address] Office: Surgery Risks - Colonoscopy Risks Include but are not Limited To: Risks include but are not limited to: Bleeding, perforation requiring further surgery, inability to complete colonoscopy requiring barium enema.
[2019-06-22 08:05] VITALS: BP 134/94; BP 95/57; PULSE 75; RESP 16; TEMP 36.2; O2SAT 96
--- NOTE | 2019-06-22 08:05 | OP.COLON_ITS ---
Patient Name: Jessi Gates Procedure Date: 06/22/2019 7:50 AM Date of : 1960 Age: 58 Procedure: Colonoscopy Indications: Screening for colorectal malignant neoplasm Providers: Jamal Bojorquez MD Referring MD: Noel Farrell Medicines: Meperidine mg IV Patient Profile: Last Colonoscopy: 10 years ago. Complications: No immediate complications. Estimated blood loss: None. Procedure: Pre-Anesthesia Assessment: - Prior to the procedure, a History and Physical was performed, and patient medications and allergies were reviewed. The patient's tolerance of previous anesthesia was also reviewed. The risks and benefits of the procedure and the sedation options and risks were discussed with the patient. All questions were answered, and informed consent was obtained. Prior Anticoagulants: The patient has taken no previous anticoagulant or antiplatelet agents. ASA Grade Assessment: II - A patient with mild systemic disease. After reviewing the risks and benefits, the patient was deemed in satisfactory condition to undergo the procedure. After I obtained informed consent, the scope was passed under direct vision. Throughout the procedure, the patient's blood pressure, pulse, and oxygen saturations were monitored continuously. The colonoscope was introduced through the anus with the intention of advancing to the cecum. The scope was advanced to the transverse colon before the procedure was aborted. Medications were not given. The colonoscopy was performed without difficulty. The patient tolerated the procedure well. The quality of the bowel preparation was poor. Scope In: 7:55:46 AM Scope Out: 8:01:16 AM Total Procedure Duration Time 0 hours 5 minutes 30 seconds Findings: The procedure was [Degree of difficulty] [Reason]. [Solution]. Impression: - Preparation of the colon was poor. - No specimens collected. - The procedure was aborted due to poor bowel prep with stool present. Recommendation: - Discharge patient to home. - Clear liquid diet. - Continue present medications. - Repeat colonoscopy tomorrow because the bowel preparation was poor. Procedure Code(s): --- Professional --- 86024, 53, Colonoscopy, flexible; diagnostic, including collection of specimen(s) by brushing or washing, when performed (separate procedure) Diagnosis Code(s): --- Professional --- Z12.11, Encounter for screening for malignant neoplasm of colon Z53.8, Procedure and treatment not carried out for other reasons CPT copyright 2017 [employer]. All rights reserved. The codes documented in this report are preliminary and upon vehicle fuel systems converter review may be revised to meet current compliance requirements. Jamal Bojorquez MD 06/22/2019 8:05:20 AM This report has been signed electronically. Number of Addenda: 0 Note Initiated On: 06/22/2019 7:50 AM
[2019-06-22 08:10] VITALS: BP 134/94; BP 99/64; PULSE 76; RESP 16; O2SAT 96
[2019-06-22 08:15] VITALS: BP 134/94; BP 95/69; PULSE 77; RESP 16; O2SAT 95
--- NOTE | 2019-06-22 08:18 | PCM.PN.BLA ---
Progress Note Patient had a very poor bowel prep. I will have her reprep again today and tonight and follow-up again tomorrow for repeat try at the colonoscopy. STROKE Vital Signs/Narrative: Vital Signs Temp Pulse Resp BP Pulse Ox 06/22/19 08:15 77 16 95/69 95 06/22/19 08:10 76 16 99/64 96 06/22/19 08:05 97.1 F L 75 16 95/57 L 96 06/22/19 07:12 97.4 F L 78 16 134/94 H 98
[2019-06-22 08:20] VITALS: BP 108/72; BP 134/94; PULSE 71; RESP 16; TEMP 36.3; O2SAT 97
[2019-06-22 08:30] VITALS: BP 134/94
== END 2019-06-22 08:58 | disposition home or self-care (01) ==
LOC: EN 06:53 → AC 06:55
PROVIDERS: Family Provider Family Medicine; PCP Family Medicine; Referring Provider Family Medicine; Visit Provider Surgery
PROC: 0DJD8ZZ Inspection of Lower Intestinal Tract, Via Natural or Artificial Opening Endoscopic (ICD-10-PCS; CPT 45378; principal; 2019-06-22 07:55)
DX: Z12.11 Encounter for screening for malignant neoplasm of colon (principal); Z53.8 Procedure and treatment not carried out for other reasons; K21.9 Gastro-esophageal reflux disease without esophagitis; G43.909 Migraine, unspecified, not intractable, without status migrainosus; Z91.013 Allergy to seafood; Z87.442 Personal history of urinary calculi
CPT/HCPCS: 45378; J7120

== ENCOUNTER 2019-06-23 09:48 | Day surgery (SDC) | payer OTHER, SELFPAY ==
[2019-06-22 07:12] VITALS: BMI 24.4
--- NOTE | 2019-06-23 10:14 | HP.PCM_ITS ---
History of Present Illness Date of Admission: 06/23/19 The patient is a 58 year old F here for screening colonoscopy. The patient had attempted colonoscopy yesterday but her prep was incomplete. She went home to complete a new bowel prep and repeat colonoscopy today. Past Medical/Surgical History - Planned Operation Planned Operative Procedure/s: colonoscopy Date of Operative Procedure: 06/23/19 Permit Signed: No S.O.S: No Is This Patient Having a Total Joint: No - Previous Hospitalizations/Surgeries HX Hospitalizations: No HX of Surgeries: ELBOW ULNAR NERVE. TONSILLECTOMY. COLONOSCOPY/EGD. ESWL Any Problems With Anesthesia: No You/Your Family Experience Fever (Hyperthermia) With Anes: No Cholinesterase deficiency: No - Cardiovascular Hx Chest Pain within Last 2 months: No Hx of Irregular Heartbeat and/or Afib: No Hx Heart Attack: No Hx Congestive Heart Failure: No Hx Rheumatic Fever: No Hx Hypertension: No Hx Internal Defibrillator: No Hx Pacemaker: No Hx Cardiac Catheterization: No Hx Cardiac Surgery/Stents/Etc.: No Hx Stress Test: Yes - STRESS ECHO [facility] HX Edema: No Hx Pain in Legs when Walking/Leg Cramps: No - Respiratory Chronic Cough: No HX of Shortness of Breath: No Hoarseness: No Hx Chronic Obstructive Pulmonary Disease (COPD): No Hx Asthma: Yes - NO INHALERS Hx Emphysema: No Hx Sleep Apnea: No CPAP: No Hx Oxygen Use at Home: No Hx Respiratory Tract Infection/Cold (presently): No Do You Snore Loudly (louder than talking or can be heard): No Do You Often Feel Tired/ Fatigued/ Sleepy Dring Daytime?: No Has Anyone Observed You Stop Breathing During Sleep?: No Result (for STOP score): Negative Hx Smoking: No Smoking Status: Never smoker - Gastrointestinal Hx Gastroesophageal Reflux: Yes Controlled With Meds: Yes - PROTONIX Hx Gastrointestinal Disorders: No Hx Gastrointestinal Bleed: No Hx Ulcer: No Hx Hiatal Hernia: No Difficulty Chewing/Swallowing: No Recent Onset of Swallowing Problems: No Special diet followed at home: No Hx Unplanned Weight Loss of 20#: No HX Unplanned Weight Gain of 20#: No - Neurological Hx Seizures: No HX Syncope/Blackout Spells/Unconsciousness: No Hx CVA/Stroke: No Hx Transient Ischemic Attacks (TIA): No Hx Multiple Sclerosis: No Hx Parkinson's Disease: No Hx Head/Neck Injury: No Hx Headaches: Yes - MIGRAINES Hx Back Injury/Pain: No Recent Onset of Speech Difficulty: No Restless Legs: No Does patient have nerve stimulator: No - Blood Disorder Hx Leukemia: No Bleeding Tendencies: No Hx Deep Vein Thrombosis: No Hx High Cholesterol: No Blood Transmitted Disease: No Hx Hepatitis: No Hx Cirrhosis: No Hx Anemia: No Hx Blood Disorders: No - Reproduction Is Patient Lactating: No Hx Hysterectomy: No Hx Tubal Ligation: No Are You Post Menopause: Yes - Genitourinary Hx Renal Disease: No - HX STONES Hx Dialysis: No - Musculoskeletal Hx Arthritis: No Hx Rheumatoid Arthritis: No Hx Gout: No Recent Onset of an Orthopedic Problem: No - Endocrine Hx Diabetes: No Thyroid Disease: No Hx Steroid Therapy: No - Psycho/Social Hx Substance Use: No Hx Alcohol Use: No Hx Anxiety: No Hx Depression: No Mental Illness: No Hx Dementia: No - Miscellaneous Hx Cancer: No Recent Exposure to Contagious Disease: No Active MRSA: No Hx of C-Diff: No Any Loose Teeth: No Allergies shellfish Allergy (Mild, Uncoded 09/28/18 13:11) unknown - Discharge Is Pt Admitted From a [facility], or a Custodial: No Who Could Help: family - Physical Exam Vitals/I&O's: Body Mass Index (BMI) 24.4 General: Alert, Oriented x3 Neck: No JVD Lungs: Normal air movement Cardiovascular: Regular rate, Regular Rhythm Abdomen: Soft, Non Tender, Non-Distended Assessment/Plan All Active Problems (Last Reviewed 08/05/18 @ 09:55 by Colette Merchant) Kidney calculi (Acute) 58-year-old female screening colonoscopy I explained endoscopy in detail to the patient. I explained the risks including but not limited to stroke or heart attack with anesthesia, perforation of the GI tract, bleeding, infection. I explained that any of these could necessitate further emergency surgery. The patient understands and all questions were answered sufficiently. The patient wishes to proceed with procedure. Jamal Bojorquez MD Pager: [facility] [address] [place] [address], [address] [place] [address] Office: Surgery Risks - Colonoscopy Risks Include but are not Limited To: Risks include but are not limited to: Bleeding, perforation requiring further surgery, inability to complete colonoscopy requiring barium enema.
[2019-06-23 10:17] VITALS: BP 144/99; PULSE 73; RESP 16; TEMP 36.7; O2SAT 98; BMI 23.9
[2019-06-23] MEDS: Lactated Ringers 1,000 ML 100 ML IV (10:27)
[2019-06-23 11:20] VITALS: BP 131/76; BP 144/99; PULSE 62; RESP 16; TEMP 36.5; O2SAT 92
--- NOTE | 2019-06-23 11:20 | OP.COLON_ITS ---
Patient Name: Jessi Gates Procedure Date: 06/23/2019 10:36 AM Date of : 1960 Age: 58 Procedure: Colonoscopy Indications: Screening for colorectal malignant neoplasm Providers: Jamal Bojorquez MD Referring MD: Noel Grace Medicines: Monitored Anesthesia Care Patient Profile: This is a 58 year old female. Refer to note in patient chart for documentation of history and physical. Last Colonoscopy: 10 years ago. Complications: No immediate complications. Estimated blood loss: None. Procedure: Pre-Anesthesia Assessment: - Prior to the procedure, a History and Physical was performed, and patient medications and allergies were reviewed. The patient's tolerance of previous anesthesia was also reviewed. The risks and benefits of the procedure and the sedation options and risks were discussed with the patient. All questions were answered, and informed consent was obtained. Prior Anticoagulants: The patient has taken no previous anticoagulant or antiplatelet agents. After reviewing the risks and benefits, the patient was deemed in satisfactory condition to undergo the procedure. After I obtained informed consent, the scope was passed under direct vision. Throughout the procedure, the patient's blood pressure, pulse, and oxygen saturations were monitored continuously. The Colonoscope was introduced through the anus and advanced to the cecum, identified by appendiceal orifice and ileocecal valve. The colonoscopy was performed without difficulty. The patient tolerated the procedure well. The quality of the bowel preparation was good. Scope In: 10:59:20 AM Scope Withdrawal Time 0 hours 6 minutes 24 seconds Scope Out: 11:15:58 AM Total Procedure Duration Time 0 hours 16 minutes 38 seconds Findings: The entire examined colon appeared normal on direct and retroflexion views. Impression: - The entire examined colon is normal on direct and retroflexion views. - No specimens collected. Recommendation: - Resume previous diet. - Continue present medications. - Repeat colonoscopy in 10 years for screening purposes. - Discharge patient to home. Procedure Code(s): --- Professional --- 91065, PT, Colonoscopy, flexible; diagnostic, including collection of specimen(s) by brushing or washing, when performed (separate procedure) Diagnosis Code(s): --- Professional --- Z12.11, Encounter for screening for malignant neoplasm of colon CPT copyright 2017 [employer]. All rights reserved. The codes documented in this report are preliminary and upon yard crane operator review may be revised to meet current compliance requirements. Jamal Bojorquez MD 06/23/2019 11:19:36 AM This report has been signed electronically. Number of Addenda: 0 Note Initiated On: 06/23/2019 10:36 AM
[2019-06-23 11:25] VITALS: BP 131/76; BP 144/99; PULSE 62; RESP 16; O2SAT 93
[2019-06-23 11:30] VITALS: BP 131/86; BP 144/99; PULSE 64; RESP 16; O2SAT 93
[2019-06-23 11:46] VITALS: BP 134/80; BP 144/99; PULSE 64; RESP 16; TEMP 36.5; O2SAT 94
[2019-06-23 11:59] VITALS: BP 144/99
== END 2019-06-23 12:12 | disposition home or self-care (01) ==
LOC: EN 09:49 → AC 09:50
PROVIDERS: Family Provider Family Medicine; PCP Family Medicine; Referring Provider Family Medicine; Visit Provider Surgery
PROC: 0DJD8ZZ Inspection of Lower Intestinal Tract, Via Natural or Artificial Opening Endoscopic (ICD-10-PCS; CPT 45378; principal; 2019-06-23 10:55)
DX: Z12.11 Encounter for screening for malignant neoplasm of colon (principal); J45.909 Unspecified asthma, uncomplicated; K21.9 Gastro-esophageal reflux disease without esophagitis; G43.909 Migraine, unspecified, not intractable, without status migrainosus; Z87.442 Personal history of urinary calculi
CPT/HCPCS: 45378; J7120

== ENCOUNTER → 2019-11-29 07:58 | Outpatient (CLI) | payer OTHER, SELFPAY ==
--- NOTE | 2019-11-29 08:01 | BI_ITS ---
MAMMOGRAPHY - BILATERAL SCREENING REASON FOR EXAM: Female, 59 years old. Routine annual screening examination. PERTINENT HISTORY: Non-contributory. TECHNIQUE: Digital bilateral breast rosemary (3D mammographic acquisition) in the CC and MLO projections. 2-D mediolateral oblique (MLO) and craniocaudad (CC) views of both breasts were obtained. CAD: Full Field Digital Mammography with Computer Added Detection was performed. COMPARISON: None. FINDINGS: Breast Composition: The breasts are heterogeneously dense, which may obscure small masses. There is an asymmetric density in the right breast for which further evaluation by spot compression views and ultrasound would be recommended. There are no suspicious calcifications.. No other significant abnormalities are identified. BI/SCREEN MAMM (CAD) W/ROSEMARY BILAT IMPRESSION: Further imaging evaluation recommended, as described above. (E) ASSESSMENT CATEGORY: BIRADS Category 0: Incomplete. Need additional imaging evaluation. A letter regarding these results will be sent to the patient by the facility within 30 days. Approximately 10% of breast cancers are not detected by mammography. A normal mammogram should not delay biopsy of a clinically suspicious abnormality. [id number] Electronically Signed: Karine Norwood, at 15:24 EDT Tel , Service support ,
== END ==
PROVIDERS: PCP Family Medicine; Referring Provider Family Medicine; Visit Provider Family Medicine
DX: Z12.31 Encounter for screening mammogram for malignant neoplasm of breast (principal)
CPT/HCPCS: 77063; 77067

== ENCOUNTER → 2019-12-01 10:59 | Outpatient (CLI) | payer OTHER, SELFPAY ==
--- NOTE | 2019-12-01 11:02 | BI_ITS ---
MAMMOGRAPHY - UNILATERAL DIAGNOSTIC: RIGHT BREAST REASON FOR EXAM: Female, 59 years old. RT SPOTS IN CC PERTINENT HISTORY: TECHNIQUE: Digital unilateral breast aisha (3D mammographic acquisition) in the CC and MLO projections. 2-D mediolateral oblique (MLO) and craniocaudad (CC) views of the right breast were obtained. CAD: Full Field Digital Mammography with Computer Added Detection was performed. COMPARISON: None. FINDINGS: Breast Composition: The previously described asymmetric density in the right breast has dispersed on spot compression images. There are no dominant masses or suspicious calcifications. No other significant abnormalities are identified. BI/DIAG MAMM W/CAD, UNILAT IMPRESSION: Stable unilateral diagnostic mammogram. One year follow-up mammogram recommended. (A) ASSESSMENT CATEGORY: BIRADS Category 2: Benign. A letter regarding these results will be sent to the patient by the facility within 30 days. Approximately 10% of breast cancers are not detected by mammography. A normal mammogram should not delay biopsy of a clinically suspicious abnormality. Electronically Signed: Karine Norwood, at 15:38 EDT Tel , Service support ,
== END ==
PROVIDERS: PCP Family Medicine; Referring Provider Family Medicine; Visit Provider Family Medicine
DX: R92.8 Other abnormal and inconclusive findings on diagnostic imaging of breast (principal)
CPT/HCPCS: 77065

== ENCOUNTER → 2019-12-28 10:00 | Outpatient (CLI) | payer OTHER, SELFPAY ==
[2019-12-28 12:33] LABS: Vitamin D,25 Hydroxy 51.7 ng/mL
[2019-12-28 12:37] LABS: ALB/GLOB Ratio 1.1 RATIO (0.9-2.4); AST(SGOT) 21 U/L (15-37); Alanine Aminotransfer ALT/SGPT 25 U/L (13-56); Alkaline Phosphatase 71 U/L (45-117); Anion Gap 6 (5-15); BUN 29 mg/dL (7-18); BUN/Creat Ratio 31.8 RATIO (10-20); Calcium,Total 9.5 mg/dL (8.5-10.1); Chloride 105 mmol/L (98-107); Creatinine, Serum 0.91 mg/dL (0.55-1.02); EST Glomerular Filtration Rate 66 mL/min (>60); Est Glom Filt Rate - Afr Amer 80 mL/min (>60); Globulin 3.6 g/dL (2.2-4.2); Glucose 89 mg/dL (74-106); Phosphorus 3.7 mg/dL (2.5-4.9); Potassium 3.9 mmol/L (3.5-5.1); Protein, Total 7.6 g/dL (6.4-8.2); Sodium Level 140 mmol/L (136-145)
== END ==
PROVIDERS: PCP Family Medicine; Referring Provider Family Medicine; Visit Provider Family Medicine
DX: M85.80 Other specified disorders of bone density and structure, unspecified site (principal)
CPT/HCPCS: 36415; 80053; 82306; 84100

== ENCOUNTER → 2020-12-07 08:43 | Outpatient (CLI) | payer BC, SELFPAY ==
[2020-01-13 08:42] VITALS: BMI 23.9
[2020-12-07 10:08] LABS: Absolute Lymphocyte Count 1.52 X10^3/uL (0.83-4.51); Absolute Neutrophil Count 1.6 X10^3/uL (2.0-7.7); Basophil# 0.05 X10^3/uL; Basophil% 1.3 % (0-1); Eosinophil# 0.14 X10^3/uL; Eosinophils% 3.7 % (0-5); Hematocrit 40.1 % (37-47); Hemoglobin 13.1 g/dL (12.0-15.0); Lymphocyte # 1.52 X10^3/ul (0.83-4.51); Lymphocyte % 40.3 % (19-41); Mean Corp Hgb Conc 32.7 g/dL (32-36); Mean Corpuscular Hgb 32.8 pg (27.0-32.0); Mean Corpuscular Volume 100.3 fL (81-99); Mean Platelet Vol. 10.6 fl (6.2-12.0); Monocyte% 13.3 % (0-10); NRBC Flagged by Analyzer 0 % (0-5); Neutrophil # 1.56 X10^3/uL (2.7-7.7); Neutrophil % 41.4 % (47-70); Platelet Count 207 K/mm3 (150-450); RBC Distribution Width CV 13.2 % (11.6-14.6); RBC Distribution Width SD 49.4 fl (35.1-43.9); White Blood Count 3.8 K/mm3 (4.4-11.0)
[2020-12-07 11:19] LABS: ALB/GLOB Ratio 1.1 RATIO (0.9-2.4); AST(SGOT) 21 U/L (15-37); Alanine Aminotransfer ALT/SGPT 25 U/L (13-56); Albumin, Serum 3.8 g/dL (3.2-5.0); Alkaline Phosphatase 74 U/L (45-117); Anion Gap 5 (5-15); BUN 27 mg/dL (7-18); BUN/Creat Ratio 30.8 RATIO (10-20); Chloride 110 mmol/L (98-107); Cholesterol 187 mg/dL (200); Creatinine, Serum 0.88 mg/dL (0.55-1.02); EST Glomerular Filtration Rate 69 mL/min (>60); Est Glom Filt Rate - Afr Amer 84 mL/min (>60); Globulin 3.4 g/dL (2.2-4.2); Glucose 83 mg/dL (74-106); High Density Lipoprotein 70 mg/dL; Potassium 3.9 mmol/L (3.5-5.1); Protein, Total 7.2 g/dL (6.4-8.2); Sodium Level 142 mmol/L (136-145); Triglycerides 79 mg/dL; Very Low Density Lipoprotein 16 mg/dL (5-40)
[2020-12-07 12:21] LABS: Vitamin D,25 Hydroxy 42.6 ng/mL
== END ==
PROVIDERS: PCP Family Medicine; Referring Provider Family Medicine; Visit Provider Family Medicine
DX: R03.0 Elevated blood-pressure reading, without diagnosis of hypertension (principal); K21.9 Gastro-esophageal reflux disease without esophagitis; M85.80 Other specified disorders of bone density and structure, unspecified site
CPT/HCPCS: 36415; 80053; 80061; 82306; 85025

== ENCOUNTER → 2021-02-01 07:40 | Outpatient (CLI) | payer BC, SELFPAY ==
[2020-01-13 08:42] VITALS: BMI 23.9
--- NOTE | 2021-02-01 07:42 | BI_ITS ---
MAMMOGRAPHY - BILATERAL SCREENING REASON FOR EXAM: Female, 60 years old. Routine annual screening examination. PERTINENT HISTORY: Non-contributory. TECHNIQUE: Digital bilateral breast rosemary (3D mammographic acquisition) in the CC and MLO projections. 2-D mediolateral oblique (MLO) and craniocaudad (CC) views of both breasts were obtained. CAD: Full Field Digital Mammography with Computer Added Detection was performed. COMPARISON: Comparison is made with prior study dated 11/29/2019 and 09/02/2017. FINDINGS: Breast Composition: The breasts are heterogeneously dense, which may obscure small masses. There are no dominant masses or suspicious calcifications. No other significant abnormalities are identified. There has been no significant change since the prior study. BI/SCRN MAMM (CAD)W/ROSEMARY BILAT IMPRESSION: Stable bilateral screening mammogram. Yearly follow-up mammogram recommended. (A) ASSESSMENT CATEGORY: BIRADS Category 1: Negative. A letter regarding these results will be sent to the patient by the facility within 30 days. Approximately 10% of breast cancers are not detected by mammography. A normal mammogram should not delay biopsy of a clinically suspicious abnormality. [id number] Electronically Signed: Devendra Valentin MD at 9:02 EDT , Service support ,
== END ==
PROVIDERS: PCP Family Medicine; Referring Provider Nurse Practitioner Women's Health; Visit Provider Nurse Practitioner Women's Health
DX: Z12.31 Encounter for screening mammogram for malignant neoplasm of breast (principal)
CPT/HCPCS: 77063; 77067

== ENCOUNTER → 2021-12-12 | Outpatient (CLI) | payer BC, SELFPAY ==
[2021-12-12 12:20] LABS: Absolute Lymphocyte Count 1.44 X10^3/uL (0.83-4.51); Absolute Neutrophil Count 1.9 X10^3/uL (2.0-7.7); Basophil# 0.05 X10^3/uL; Basophil% 1.3 % (0-1); Eosinophil# 0.08 X10^3/uL; Hemoglobin 12.9 g/dL (12.0-15.0); Lymphocyte # 1.44 X10^3/ul (0.83-4.51); Mean Corp Hgb Conc 33.1 g/dL (32-36); Mean Corpuscular Hgb 32.5 pg (27.0-32.0); Mean Corpuscular Volume 98.2 fL (81-99); Mean Platelet Vol. 10.5 fl (6.2-12.0); Monocyte# 0.49 X10^3/uL; Monocyte% 12.3 % (0-10); NRBC Flagged by Analyzer 0 % (0-5); Neutrophil # 1.93 X10^3/uL (2.7-7.7); Neutrophil % 48.1 % (47-70); Platelet Count 216 K/mm3 (150-450); RBC Distribution Width CV 13.1 % (11.6-14.6); RBC Distribution Width SD 47.2 fl (35.1-43.9); Red Blood Count 3.97 M/mm3 (4.2-5.4)
[2021-12-12 13:00] LABS: ALB/GLOB Ratio 1.1 RATIO (0.9-2.4); AST(SGOT) 25 U/L (15-37); Alanine Aminotransfer ALT/SGPT 31 U/L (13-56); Alkaline Phosphatase 76 U/L (45-117); Anion Gap 6 (5-15); BUN 26 mg/dL (7-18); BUN/Creat Ratio 31.6 RATIO (10-20); Chloride 107 mmol/L (98-107); Creatinine, Serum 0.82 mg/dL (0.55-1.02); EST Glomerular Filtration Rate 74 mL/min (>60); Est Glom Filt Rate - Afr Amer 90 mL/min (>60); Globulin 3.5 g/dL (2.2-4.2); Glucose 93 mg/dL (74-106); Potassium 3.6 mmol/L (3.5-5.1); Protein, Total 7.5 g/dL (6.4-8.2); Sodium Level 141 mmol/L (136-145)
== END | disposition home or self-care (01) ==
LOC: MFPLAB 11:18
PROVIDERS: PCP Family Medicine; Visit Provider Family Medicine
DX: K21.9 Gastro-esophageal reflux disease without esophagitis (principal); M85.80 Other specified disorders of bone density and structure, unspecified site
CPT/HCPCS: 36415; 80053; 82306; 85025

== ENCOUNTER → 2021-12-19 | Outpatient (CLI) | payer BC, SELFPAY ==
--- NOTE | 2021-12-19 08:32 | BD_ITS ---
STUDY: DUAL ENERGY X-RAY ABSORPTIOMETRY / DXA REASON FOR EXAM: Female, 61 years old. M85.89. The patient is postmenopausal. TECHNIQUE: Bone Mineral Density (BMD) measurements of lumbar spine and bilateral hips were obtained. COMPARISON: Comparison is made with prior study dated 05/26/2019. FINDINGS: Lumbar Spine (L1-L4): g/cm2 (1.060) / T-score (-0.2) / Z-score (1.5) Findings are suggestive of normal bone density with a low fracture risk. Left Femur Total: g/cm2 (0.786) / T-score (-1.3) / Z-score (-0.1) Left Femoral Neck: g/cm2 (0.671) / T-score (-1.6) / Z-score (-0.2) Right Femur Total: g/cm2 (0.783) / T-score (-1.3) / Z-score (-0.2) Right Femoral Neck: g/cm2 (0.674) / T-score (-1.6) / Z-score (-0.1) The T-Scores on the most recent prior examination were: Lumbar Spine (L1-L4): There has been improvement of bone density since the previous examination. Left Femur Total: which represents an improvement of 0.4%. Right Femur Total: which represents an improvement of 4.8%. BD/Dexa Bone Density Study IMPRESSION: The patient is considered osteopenic as outlined below according to World Ke[employer]chi Organization (WHO) criteria with a moderate fracture risk. There has been improvement of bone density since the previous examination. Reference Information: The T-score is the number of standard deviations above or below the standard which is normal for young adults at their peak bone mineral density. The World Health Organization (WHO) interprets the T-scores as follows: Above -1 Normal bone density Between -1 and -2.5 Osteopenia Equal to / or below -2.5 Osteoporosis As a practical clinical guideline, osteopenia may be graded as follows: Mild -1 through -1.5 Moderate -1.6 through -2.0 Severe -2.1 through -2.4 The Z-score is the number of standard deviations above or below age-matched controls. A Z-score of less than -1.5 would be considered abnormal. References: 1. NIH Osteoporosis and Related Bone Diseases www osteo.org 2. International Society for Clinical Densitometry www iscd.org 3. National Osteoporosis Foundation www nof.org Electronically Signed: Devendra Valentin MD at 8:08 EDT ,
== END | disposition home or self-care (01) ==
PROVIDERS: PCP Family Medicine; Referring Provider Family Medicine; Visit Provider Family Medicine
DX: M85.80 Other specified disorders of bone density and structure, unspecified site (principal)
CPT/HCPCS: 77080

== ENCOUNTER → 2022-01-03 | Outpatient (CLI) | payer BC, SELFPAY | END | disposition home or self-care (01) | LOC: LABSPEC 13:26 | PROVIDERS: PCP Family Medicine; Visit Provider Family Medicine | DX: Z11.59 Encounter for screening for other viral diseases (principal) | CPT/HCPCS: 87635; U0003; U0005 ==

== ENCOUNTER → 2022-02-28 | Outpatient (CLI) | payer BC, SELFPAY ==
--- NOTE | 2022-02-28 08:26 | BI_ITS ---
MAMMOGRAPHY - BILATERAL SCREENING REASON FOR EXAM: Female, 61 years old. Routine annual screening examination. PERTINENT HISTORY: Non-contributory. TECHNIQUE: Digital bilateral breast rosemary (3D mammographic acquisition) in the CC and MLO projections. 2-D mediolateral oblique (MLO) and craniocaudad (CC) views of both breasts were obtained. CAD: Full Field Digital Mammography with Computer Added Detection was performed. COMPARISON: Comparison is made with prior study dated 02/01/2021 and 11/29/2019. FINDINGS: Breast Composition: The breasts are heterogeneously dense, which may obscure small masses. There are no dominant masses or suspicious calcifications. Small benign appearing right axillary lymph nodes. No other significant abnormalities are identified. There has been no significant change since the prior study. BI/SCRN MAMM (CAD)W/ROSEMARY BILAT IMPRESSION: Stable bilateral screening mammogram. Yearly follow-up mammogram recommended. (A) ASSESSMENT CATEGORY: BIRADS Category 2: Benign. A letter regarding these results will be sent to the patient by the facility within 30 days. Approximately 10% of breast cancers are not detected by mammography. A normal mammogram should not delay biopsy of a clinically suspicious abnormality. [id number] Electronically Signed: Devendra Valentin MD at 9:41 EDT ,
== END | disposition home or self-care (01) ==
LOC: OPBI 08:25
PROVIDERS: PCP Family Medicine; Visit Provider Nurse Practitioner Women's Health
DX: Z12.31 Encounter for screening mammogram for malignant neoplasm of breast (principal)
CPT/HCPCS: 77063; 77067

== ENCOUNTER 2022-03-25 08:00 | Outpatient (RCR) | payer BC, SELFPAY ==
--- NOTE | 2022-02-27 09:21 | HP.PTEVAL ---
Patient's Visit Information WENDY CANNON is a 61 year old F referred to Physical Therapy by Dr. Flower Nicolas MD with a diagnosis of Left Hindfoot triple arthrodesis and Calcaneal Autograft [place]-Jul 2021. Date of Evaluation: 02/27/22 Physical Therapist: Flower Blanco DPT - Visit Plan Frequency: 2x /Week Duration: 4 Weeks Plan: Focus on LE and core strength/stabilization- proprioception. HEP Given IE: SLS, HR/TR, 4 way ankle t-band with OTB and clams - Subjective Patient reports that she had a Left Hindfoot triple arthrodesis and Left Calcaneal Autograft [place]- July 2021. She tried golfing and she was having a really hard time walking on uneven ground and was pushed into supination. She had her right one done in November 2018 so she has very little movement in her foot. She has been advised to no longer play tennis- MD has concerns about her knees and hips. She has no pain she just struggles to do things. She feels that she has a lot of weakness. She got orthotics and gets them next week for [employer]mp. She does the ellip started this week- Recumbent bike- weight strength training upper body, stretching and Red T-Band Ankle exercises. No falls or loss of balance or ankle rolls. She does struggle to go down stairs. Sleep: not disturbed. PMHx: none Meds: none - Objective Posture: FH, RS- able to correct with verbal cues but does not maintain. Gait: slightly antalgic- increase supination left>right. HR/TR: able with UE A. SLS: Left: 15 sec with increase muscle sway and activation. ROM: WFL in all planes. Stairs: asc: able without UE A, Desc: decreased stance on the left LE. Strength: Core: fair minus, Hip: 4/5, Knee: 5/5, Ankle: 4+/5. Flex: Gastroc: moderate Soleus: moderate - Balance/Special Test Scores Lower Extremity Functional Score: 56 - Goals Goal 1:: Patient will be I with HEP and progression Goal Time Frame: 4-6 Weeks Goal 2:: Patient will SLS on the left LE for 30 sec without LOB Goal Time Frame: 4-6 Weeks Goal 3:: Patient will maintain proper posture t/o tx session to demo increased core s/s. Goal Time Frame: 4-6 Weeks Goal 4:: Patient will report 80% improvement Goal Time Frame: 4-6 Weeks - Rehabilitation Potential Physical Therapy Diagnosis: Patient presents with hypomobility- she has decreased LE and core strength/stabilization leading to abnormal gait and lack of proprioception. Rehabilitation Potential: Good - Anticipated Interventions Patient/Client Instruction: Educate patient on: Benefits of Fitness Program Therapeutic Exercise to Include: Strength training, Endurance training, Balance training, Coordination, Agility training, Body mechanics, Postural training, Flexibilty training, Gait and locomotor training, Neuromotor development, Dynamic Lumbar Stabilization, Scapular Strength/Stabilization For the Purpose of:: To improve muscle performance and motor function TENS: Yes Cryotherapy (ice pack, ice massage): Yes Thermo therapy (hot pack): Yes Ultrasound (thermal/non thermal): No Thank you for the opportunity to evaluate your patient. For Medicare and Medicare HMO plans, please review the plan of care and approve it. It will need to be FAXED BACK to us at [phone] for Medicare purposes. For Medicare only, by signing this I certify the plan of care. Please let me know if there are questions or concerns regarding this plan of care. Physician Signature: Date:
--- NOTE | 2022-03-25 08:45 | HP.PTDCSUM_ITS ---
It has been my pleasure to treat WENDY CANNON referred by Dr. Folwer Nicolas MD, with the diagnosis of Left Hindfoot triple arthrodesis and Calcaneal Autograft [place]-Jul 2021 for a total of 9 visit(s). Discharge Date: Please see the following information for a summary of their discharge status. Subjective: Patient reports that she is good- she has very little swelling and she is able to walk up/down stairs easier. She is now walking for exercise again. % Improvement: 95 Objective/Function: Posture: good throughout. Gait: no deviation noted . HR/TR: able with UE A. SLS: Left: 15 sec with increase muscle sway and activation. ROM: WFL in all planes. Stairs: asc/desc 8 recip without HR S trength: Core: fair minus, Hip: 4+/5, Knee: 5/5, Ankle: 4+/5. Flex: Gastroc: moderate Soleus: moderate Goal 1:: Patient will be I with HEP and progression Goal Progress: Goal Met Goal 2:: Patient will SLS on the left LE for 30 sec without LOB Goal Progress: Progressing Goal 3:: Patient will maintain proper posture t/o tx session to demo increased core s/s. Goal Progress: Goal Met Goal 4:: Patient will report 80% improvement Goal Progress: Goal Met Plan: 03/25/22: Discharge to I HEP- encouraged to call if questions. Focus on LE and core strength/stabilization- proprioception. HEP Given IE: SLS, HR/TR, 4 way ankle t-band with OTB and clams If there are questions or concerns regarding this patient's physical therapy, please feel free to call me at [phone]. Thank you for the referral of this patient. Sincerely, Flower Blanco, DPT Balance/Gait/Functional tests - Balance/Special Test Scores Lower Extremity Functional Score: 64
== END 2022-03-25 19:00 | disposition home or self-care (01) ==
LOC: PT 08:00
PROVIDERS: PCP Family Medicine; Referring Provider Orthopaedic Surgery; Visit Provider Orthopaedic Surgery
DX: Z47.89 Encounter for other orthopedic aftercare (principal); M76.822 Posterior tibial tendinitis, left leg; M19.072 Primary osteoarthritis, left ankle and foot
CPT/HCPCS: 97110; 97162; 97164

== ENCOUNTER → 2022-05-06 | Outpatient (CLI) | payer BC, SELFPAY ==
--- NOTE | 2022-05-06 | EMB_PTH ---
PATIENT: WENDY CANNON LOC: [facility] U#:[id number] AGE/SX: 61/F ROOM: RE05/06/[address]: MARIE Rabago : 1960 BED: DIS: 05/06/2022 SPEC #: [id number] RECD: 05/06/22 16:40 STATUS: CALEB REQ #: [id number] ZANE: 05/06/22 00:[address]: Bambi Molina NP DEPT: SURGICAL PATHOLOGY RECD BY: Barak Beaver ENTERED: 05/07/22 09:14 SP TYPE: ENDOM BX/C FINA DR: Dr. Noel Grace MD Tissues: Endometrium, NOS Procedures: Surgery Specimen Level IV HEADER OPERATION: Endometrial biopsy PRE-OP DIAGNOSIS: Abnormal uterine bleeding TISSUE SUBMITTED: Endometrial tissue MICROSCOPIC DIAGNOSIS Endometrium, biopsy: Strips of benign superficial glandular mucosa. AM:jez 05/08/2022 MICROSCOPIC DESCRIPTION Slides are reviewed. GROSS DESCRIPTION Received in fixative is one container labeled with the patient's name and designated endometrial tissue. The specimen consists of multiple irregular fragments of light waterman soft tissue that in aggregate measure 1 x <0.1 x <0.1 cm. The specimen is submitted for cell block preparation. / AM:jez 05/07/2022 TC:5 CPT: 67139
== END | disposition home or self-care (01) ==
LOC: LABSPEC 16:49
PROVIDERS: PCP Family Medicine; Referring Provider Nurse Practitioner Women's Health; Visit Provider Nurse Practitioner Women's Health
DX: N93.9 Abnormal uterine and vaginal bleeding, unspecified (principal)
CPT/HCPCS: 88305

== ENCOUNTER → 2022-05-10 | Outpatient (CLI) | payer BC, SELFPAY ==
--- NOTE | 2022-05-10 15:17 | US_ITS ---
STUDY: ULTRASOUND OF THE FEMALE PELVIS - COMPLETE REASON FOR EXAM: Female, 61 years old. bleeding TECHNIQUE: Endovaginal. Transvaginal US was obtained to better visualized the ovaries. COMPARISON: ct 07.21.18. FINDINGS: The uterus is anteverted retroflexedand is tilted to the left side of the pelvis. The uterus measures 5.4 x 4.2 cm. Normal uterine cervix. The endometrium measures 3 mm in thickness, and is fluid distended. There is no demonstrated endometrial mass. Fibroid visualized measuring 9 x 9 mm. I.U.D. - The patient does not have an I.U.D. The right ovary is visualized. The right ovary measures 1.2 x 1.7 cm. There is no right ovarian cyst or ovarian mass. There is no visualized right adnexal mass or complex lesion. There is normal arterial and normal venous vascularity. The left ovary is visualized. The left ovary measures 1.3 x 1.8 cm. There is no left ovarian cyst or ovarian mass. There is no visualized left adnexal mass or complex lesion. There is normal arterial and normal venous vascularity. There is no fluid in the cul-de-sac. Urinary bladder volume is (in cc) 591. US/Transvaginal Non- IMPRESSION: Fibroid uterus. Fluid distended endometrium is abnormal for the patient''s age. There is endometrial thickening. This is abnormal for the patient''s age if she is postmenopausal. Direct visualization is recommended to exclude an underlying mass. However, the patient has a history of recent endometrial biopsy. Electronically Signed: Jonathan Pineda MD at 21:16 EDT ,
--- NOTE | 2022-05-10 15:17 | US_ITS ---
STUDY: ULTRASOUND OF THE FEMALE PELVIS - COMPLETE REASON FOR EXAM: Female, 61 years old. bleeding TECHNIQUE: Endovaginal. Transvaginal US was obtained to better visualized the ovaries. COMPARISON: ct .03.01. FINDINGS: The uterus is anteverted retroflexedand is tilted to the left side of the pelvis. The uterus measures 5.4 x 4.2 cm. Normal uterine cervix. The endometrium measures 3 mm in thickness, and is fluid distended. There is no demonstrated endometrial mass. Fibroid visualized measuring 9 x 9 mm. I.U.D. - The patient does not have an I.U.D. The right ovary is visualized. The right ovary measures 1.2 x 1.7 cm. There is no right ovarian cyst or ovarian mass. There is no visualized right adnexal mass or complex lesion. There is normal arterial and normal venous vascularity. The left ovary is visualized. The left ovary measures 1.3 x 1.8 cm. There is no left ovarian cyst or ovarian mass. There is no visualized left adnexal mass or complex lesion. There is normal arterial and normal venous vascularity. There is no fluid in the cul-de-sac. Urinary bladder volume is (in cc) 591. US/Pelvic (Non ) IMPRESSION: Fibroid uterus. Fluid distended endometrium is abnormal for the patient''s age. There is endometrial thickening. This is abnormal for the patient''s age if she is postmenopausal. Direct visualization is recommended to exclude an underlying mass. However, the patient has a history of recent endometrial biopsy. Electronically Signed: Jonathan Pineda MD at 21:16 EDT ,
== END | disposition home or self-care (01) ==
LOC: US 15:15
PROVIDERS: PCP Family Medicine; Referring Provider Nurse Practitioner Women's Health; Visit Provider Nurse Practitioner Women's Health
DX: N95.0 Postmenopausal bleeding (principal)
CPT/HCPCS: 76830; 76856

== ENCOUNTER → 2022-11-29 | Outpatient (CLI) | payer OTHER, SELFPAY ==
[2022-11-29 10:17] LABS: Absolute Lymphocyte Count 1.45 X10^3/uL (0.83-4.51); Absolute Neutrophil Count 1.7 X10^3/uL (2.0-7.7); Basophil# 0.05 X10^3/uL; Basophil% 1.3 % (0-1); Eosinophils% 2.6 % (0-5); Hematocrit 42.2 % (37-47); Hemoglobin 13.8 g/dL (12.0-15.0); Lymphocyte # 1.45 X10^3/ul (0.83-4.51); Lymphocyte % 37.9 % (19-41); Mean Corp Hgb Conc 32.7 g/dL (32-36); Mean Corpuscular Hgb 32.4 pg (27.0-32.0); Mean Corpuscular Volume 99.1 fL (81-99); Mean Platelet Vol. 10.5 fl (6.2-12.0); Monocyte# 0.49 X10^3/uL; Monocyte% 12.8 % (0-10); NRBC Flagged by Analyzer 0 % (0-5); Neutrophil # 1.73 X10^3/uL (2.7-7.7); Neutrophil % 45.1 % (47-70); Platelet Count 217 K/mm3 (150-450); RBC Distribution Width CV 13.2 % (11.6-14.6); RBC Distribution Width SD 48.1 fl (35.1-43.9); Red Blood Count 4.26 M/mm3 (4.2-5.4); White Blood Count 3.8 K/mm3 (4.4-11.0)
[2022-11-29 10:33] LABS: ALB/GLOB Ratio 1.1 RATIO (0.9-2.4); AST(SGOT) 39 U/L (15-37); Alanine Aminotransfer ALT/SGPT 43 U/L (13-56); Albumin, Serum 3.8 g/dL (3.2-5.0); Alkaline Phosphatase 71 U/L (45-117); Anion Gap 4 (5-15); BUN 26 mg/dL (7-18); BUN/Creat Ratio 31.9 RATIO (10-20); Calcium,Total 9.2 mg/dL (8.5-10.1); Chloride 109 mmol/L (98-107); Cholesterol 179 mg/dL (200); Creatinine, Serum 0.82 mg/dL (0.55-1.02); EST Glomerular Filtration Rate 75 mL/min (>60); Est Glom Filt Rate - Afr Amer 91 mL/min (>60); Globulin 3.5 g/dL (2.2-4.2); Glucose 94 mg/dL (74-106); High Density Lipoprotein 76 mg/dL; Potassium 4.2 mmol/L (3.5-5.1); Protein, Total 7.3 g/dL (6.4-8.2); Sodium Level 141 mmol/L (136-145); Triglycerides 52 mg/dL; Very Low Density Lipoprotein 10 mg/dL (5-40)
== END | disposition home or self-care (01) ==
LOC: MFPLAB 08:22
PROVIDERS: PCP Family Medicine; Visit Provider Family Medicine
DX: K21.9 Gastro-esophageal reflux disease without esophagitis (principal); M85.80 Other specified disorders of bone density and structure, unspecified site; E78.5 Hyperlipidemia, unspecified
CPT/HCPCS: 36415; 80053; 80061; 82306; 85025

== ENCOUNTER → 2023-02-26 | Outpatient (CLI) | payer OTHER, SELFPAY ==
[2023-03-05 21:07] LABS: HPV APTIMA, High Risk Positive (Negative); HPV Genotype 16, Aptima Negative (Negative); HPV Genotype 18,45 Aptima Negative (Negative)
== END | disposition home or self-care (01) ==
LOC: LABSPEC 16:52
PROVIDERS: PCP Family Medicine; Referring Provider Nurse Practitioner Women's Health; Visit Provider Nurse Practitioner Women's Health
DX: Z12.4 Encounter for screening for malignant neoplasm of cervix (principal)
CPT/HCPCS: 87624; 88175; G0145

== ENCOUNTER → 2023-03-03 | Outpatient (CLI) | payer OTHER, SELFPAY ==
--- NOTE | 2023-03-03 09:37 | BI_ITS ---
MAMMOGRAPHY - BILATERAL SCREENING REASON FOR EXAM: Female, 62 years old. Routine annual screening examination. PERTINENT HISTORY: Non-contributory. TECHNIQUE: Digital bilateral breast rosemary (3D mammographic acquisition) in the CC and MLO projections. 2-D mediolateral oblique (MLO) and craniocaudad (CC) views of both breasts were obtained. CAD: Full Field Digital Mammography with Computer Added Detection was performed. COMPARISON: Screening mammogram from 02/28/2022, 02/01/2021. FINDINGS: Breast Composition: The breasts are heterogeneously dense, which may obscure small masses. There are no dominant masses or suspicious calcifications. No other significant abnormalities are identified. There has been no significant change since the prior study. BI/SCRN MAMM (CAD)W/ROSEMARY BILAT IMPRESSION: Stable bilateral screening mammogram. Yearly follow-up mammogram recommended. (A) ASSESSMENT CATEGORY: BIRADS Category 1: Negative. A letter regarding these results will be sent to the patient by the facility within 30 days. Approximately 10% of breast cancers are not detected by mammography. A normal mammogram should not delay biopsy of a clinically suspicious abnormality. Electronically Signed: Chino Ravi DO at 11:55 EDT ,
== END | disposition home or self-care (01) ==
LOC: OPBI 09:36
PROVIDERS: PCP Family Medicine; Referring Provider Nurse Practitioner Women's Health; Visit Provider Nurse Practitioner Women's Health
DX: Z12.31 Encounter for screening mammogram for malignant neoplasm of breast (principal)
CPT/HCPCS: 77063; 77067

== ENCOUNTER → 2023-11-18 | Outpatient (CLI) | payer OTHER, MEDICARE, SELFPAY ==
[2023-11-18 12:42] LABS: Absolute Lymphocyte Count 1.49 X10^3/uL (0.83-4.51); Absolute Neutrophil Count 1.7 X10^3/uL (2.0-7.7); Basophil# 0.05 X10^3/uL; Basophil% 1.3 % (0-1); Eosinophil# 0.09 X10^3/uL; Eosinophils% 2.4 % (0-5); Hematocrit 39.3 % (37-47); Hemoglobin 13.1 g/dL (12.0-15.0); Lymphocyte # 1.49 X10^3/ul (0.83-4.51); Lymphocyte % 39.6 % (19-41); Mean Corp Hgb Conc 33.3 g/dL (32-36); Mean Corpuscular Hgb 32.2 pg (27.0-32.0); Mean Corpuscular Volume 96.6 fL (81-99); Mean Platelet Vol. 10.5 fl (6.2-12.0); Monocyte# 0.47 X10^3/uL; Monocyte% 12.5 % (0-10); NRBC Flagged by Analyzer 0 % (0-5); Neutrophil # 1.65 X10^3/uL (2.7-7.7); Neutrophil % 43.9 % (47-70); Platelet Count 212 K/mm3 (150-450); RBC Distribution Width CV 13.2 % (11.6-14.6); RBC Distribution Width SD 47.2 fl (35.1-43.9); Red Blood Count 4.07 M/mm3 (4.2-5.4); White Blood Count 3.8 K/mm3 (4.4-11.0)
[2023-11-18 12:56] LABS: ALB/GLOB Ratio 1.1 RATIO (0.9-2.4); AST(SGOT) 26 U/L (15-37); Alanine Aminotransfer ALT/SGPT 24 U/L (13-56); Albumin, Serum 3.8 g/dL (3.2-5.0); Alkaline Phosphatase 72 U/L (45-117); Anion Gap 5 (5-15); BUN 21 mg/dL (7-18); BUN/Creat Ratio 26.5 RATIO (10-20); Calcium,Total 8.9 mg/dL (8.5-10.1); Chloride 108 mmol/L (98-107); Creatinine, Serum 0.79 mg/dL (0.55-1.02); EST Glomerular Filtration Rate 77 mL/min (>60); Est Glom Filt Rate - Afr Amer 93 mL/min (>60); Globulin 3.4 g/dL (2.2-4.2); Glucose 93 mg/dL (74-106); Protein, Total 7.2 g/dL (6.4-8.2); Sodium Level 140 mmol/L (136-145); Vitamin D,25 Hydroxy 32.4 ng/mL
== END | disposition home or self-care (01) ==
PROVIDERS: PCP Family Medicine; Visit Provider Family Medicine
DX: M85.80 Other specified disorders of bone density and structure, unspecified site (principal); K21.9 Gastro-esophageal reflux disease without esophagitis
CPT/HCPCS: 36415; 80053; 82306; 85025

== ENCOUNTER → 2023-12-01 | Outpatient (CLI) | payer OTHER, MEDICARE, SELFPAY ==
[2023-12-05 12:09] LABS: HPV APTIMA, High Risk Negative (Negative)
== END | disposition home or self-care (01) ==
PROVIDERS: PCP Family Medicine; Visit Provider Nurse Practitioner Women's Health
DX: Z12.4 Encounter for screening for malignant neoplasm of cervix (principal)
CPT/HCPCS: 87624; 88175; G0145

== ENCOUNTER → 2024-03-11 | Outpatient (CLI) | payer MEDICARE, OTHER, SELFPAY ==
--- NOTE | 2024-03-11 09:07 | BI_ITS ---
MAMMOGRAPHY - BILATERAL SCREENING REASON FOR EXAM: Female, 63 years old. Routine annual screening examination. PERTINENT HISTORY: Non-contributory. TECHNIQUE: Digital bilateral breast rosemary (3D mammographic acquisition) in the CC and MLO projections. 2-D mediolateral oblique (MLO) and craniocaudad (CC) views of both breasts were obtained. CAD: Full Field Digital Mammography with Computer Added Detection was performed. COMPARISON: Comparison is made with prior study March 03, 2023 and February 28, 2022. FINDINGS: Breast Composition: The breasts are heterogeneously dense, which may obscure small masses. There are no dominant masses or suspicious calcifications. No other significant abnormalities are identified. There has been no significant change since the prior study. BI/SCRN MAMM (CAD)W/ROSEMARY BILAT IMPRESSION: Stable bilateral screening mammogram. Yearly follow-up mammogram recommended. (A) ASSESSMENT CATEGORY: BIRADS Category 1: Negative. A letter regarding these results will be sent to the patient by the facility within 30 days. Approximately 10% of breast cancers are not detected by mammography. A normal mammogram should not delay biopsy of a clinically suspicious abnormality. [id number] Electronically Signed: Devendra Valentin MD at 9:49 EDT ,
== END | disposition home or self-care (01) ==
LOC: OPBI 09:05
PROVIDERS: PCP Family Medicine; Referring Provider Nurse Practitioner Women's Health; Visit Provider Nurse Practitioner Women's Health
DX: Z12.31 Encounter for screening mammogram for malignant neoplasm of breast (principal)
CPT/HCPCS: 77063; 77067

== ENCOUNTER → 2025-04-07 | Outpatient (CLI) | payer MEDICARE, OTHER, SELFPAY | END | disposition home or self-care (01) | LOC: LABSPEC 12:19 | PROVIDERS: PCP Family Medicine; Referring Provider Nurse Practitioner Women's Health; Visit Provider Nurse Practitioner Women's Health | DX: Z12.4 Encounter for screening for malignant neoplasm of cervix (principal) | CPT/HCPCS: 88175; G0145 ==

== ENCOUNTER → 2025-04-08 | Outpatient (CLI) | payer MEDICARE, OTHER, SELFPAY ==
[2025-04-08 12:29] LABS: Hematocrit 40.5 % (37-47); Hemoglobin 13.6 g/dL (12.0-15.0); Immature Granulocytes Count 0.010 X10^3/uL (0.0-0.0); Mean Corp Hgb Conc 33.6 g/dL (32-36); Mean Corpuscular Volume 96.2 fL (81-99); Mean Platelet Vol. 10.7 fl (6.2-12.0); NRBC Flagged by Analyzer 0 % (0-5); Platelet Count 197 K/mm3 (150-450); RBC Distribution Width CV 13.2 % (11.6-14.6); RBC Distribution Width SD 47.3 fl (35.1-43.9); Red Blood Count 4.21 M/mm3 (4.2-5.4); White Blood Count 4.2 K/mm3 (4.4-11.0)
[2025-04-08 13:17] LABS: AST(SGOT) 32 U/L (<=31); Alanine Aminotransfer ALT/SGPT 28 U/L (<=34); Albumin, Serum 4.7 g/dL (3.4-4.8); Alkaline Phosphatase 76 U/L (35-104); Anion Gap 12 (5-15); BUN 22 mg/dL (4-19); BUN/Creat Ratio 26.5 RATIO (10-20); Calcium,Total 9.2 mg/dL (7.6-11.0); Carbon Dioxide 23.7 mmol/L (21.0-32.0); Chloride 105 mmol/L (98-108); Globulin 2.5 g/dL (2.2-4.2); Glucose 91 mg/dL (70-99); Potassium 3.9 mmol/L (3.3-5.1); Vitamin D,25 Hydroxy 37.6 ng/mL (30-100)
== END | disposition home or self-care (01) ==
LOC: MFPLAB 10:24
PROVIDERS: PCP Family Medicine; Referring Provider Family Medicine; Visit Provider Family Medicine
DX: K21.9 Gastro-esophageal reflux disease without esophagitis (principal); M85.80 Other specified disorders of bone density and structure, unspecified site
CPT/HCPCS: 36415; 80053; 82306; 85025

== ENCOUNTER → 2025-04-08 | Outpatient (CLI) | payer MEDICARE, OTHER, SELFPAY ==
--- NOTE | 2025-04-08 08:45 | BI_ITS ---
EXAM: SCRN MAMM (CAD)W/ROSEAMRY BILAT DATE: 04/08/2025 CLINICAL HISTORY: F, Age 64 y/o , SCREEN FOR BREAST CANCER TECHNIQUE: Procedure Code: [id number] Modality: MG Procedure: SCRN MAMM (CAD)W/ROSEMARY BILAT COMPARISON: Prior exam(s) were compared FINDINGS: TISSUE DENSITY: The breasts are heterogeneously dense, which may obscure small masses. Bilateral Breast Mammographic Findings: No suspicious masses, calcifications or other abnormalities are identified. BI/SCRN MAMM (CAD)W/ROSEMARY BILAT IMPRESSION: No mammographic evidence of malignancy in either breast OVERALL FINAL ASSESSMENT BI-RADS 1: NEGATIVE. RECOMMENDATION: Routine annual follow-up in 1 Year Additional Recommendation none A letter with findings and recommendations will be mailed to the patient. Reading Location: [id number]
--- OUTSIDE RECORDS SUMMARY | 2025-04-08 09:01 | XMS RPT_ITS | CCD ---
Author Organization [facility] Care Team Providers Care Feller Operator Name Role Phone Fidencio Flower KOLB Unavailable Dr. Noel Grace Primary Care Provider [phone] Dr. Noel Grace Referring Provider Tracy DEVELOPMENT SPECIALIST, DEVELOPMENT SPECIALIST-C Bambi Attending Provider Dr. Noel Grace Primary Care Provider Dr. Noel Grace Referring Provider Tracy DEVELOPMENT SPECIALIST, DEVELOPMENT SPECIALIST-C Bambi Attending Provider Tracy DEVELOPMENT SPECIALIST, Bambi Attending Unavailable [place] DEVELOPMENT SPECIALISTBambi Referring Unavailable Noel Grace Primary Care Unavailable Tracy DEVELOPMENT SPECIALISTBambi Consulting Unavailable [place] DEVELOPMENT SPECIALIST Addy Attending Unavailable [place] DEVELOPMENT SPECIALISTAddy Referring Unavailable Noel Grace Primary Care Unavailable Tracy DEVELOPMENT SPECIALIST, Bambi Attending Unavailable Tracy DEVELOPMENT SPECIALISTBambi Referring Unavailable oNel Grace Primary Care Unavailable Tracy DEVELOPMENT SPECIALISTBambi Attending Unavailable Noel Grace Primary Care Unavailable Noel Grace Referring Unavailable Allergies Allergy Classification Reported Allergen(s) Allergy Type Date of Onset Reaction(s) Facility (1 source) Dust; Translations: [DUST] allergy to substance 1 [facility] Work Phone: (1 source) Pollen; Translations: [POLLEN] allergy to substance 1 [facility] Work Phone: (1 source) Shellfish; Translations: [SHELLFISH] food allergy 1 [facility] Work Phone: (5 sources) Shellfish; Translations: [shellfish derived] Allergy to substance 2 NEEDS FOLLOW-UP [facility] Medications Current Medications Medication Drug Class(es) Dates Sig (Normalized) Sig (Original) clobetasol propionate 0.0005 mg/mg topical ointment (12 sources) Corticosteroid Start: 02-04-2022 End: 11-18-2023 Clobetasol Active 1 APPLIC TOPICAL .COMPLEX November 18, 2023 8:21am 1 applic topical apply bid daily prn. Small amount and massge in; Multivitamin With Folic Acid (6 sources) Start: 09-28-2018 take 1 tablet by mouth once daily Multivitamin With Folic Acid Active 1 TABLET PO DAILY September 28, 2018 1:13pm Start: 09-28-2018 take 1 tablet by ronna th once daily Multivitamin With Folic Acid Active 1 TABLET PO DAILY September 28, 2018 12:00am Start: 09-28-2018 take 1 tablet by ronna th once daily Multivitamin With Folic Acid Active 1 TABLET PO DAILY September 27, 2018 11:00pm pantoprazole 40 mg delayed release oral tablet (11 sources) Proton Pump Inhibitor Start: 02-04-2022 take 20 mg by mouth once daily Pantoprazole Active 20 MG PO DAILY February 04, 2022 8:52am Start: 05-21-2021 take 1 tablet by ronna th once daily as needed PANTOPRAZOLE SODIUM 20 MG TBEC 1 tablet by mouth once a day as needed pantoprazole [id number] Mirian Munoz LPN Start: 09-28-2018 End: 02-04-2022 take 40 mg by mouth once daily Pantoprazole Discontinu ed 40 MG PO DAILY September 28, 2018 12:00am February 04, 2022 8:53am rizatriptan 10 mg oral tablet (7 sources) Serotonin-1b and Serotonin-1d Receptor Agonist Start: 08-05-2018 take 1 tablet by mouth once Rizatriptan (Maxalt) 10 mg tablet Active 10 MG PO ONCE August 05, 2018 1:00am Completed/Discontinued Medications Medication Drug Class(es) Dates Sig (Normalized) Sig (Original) acetaminophen 300 mg / butalbital 50 mg / caffeine 40 mg oral capsule (6 sources) Barbiturate, Central Nervous System Stimulant, Methylxanthine Start: 08-05-2018 End: 01-13-2020 take 1 capsule by mouth every four hours Butalbital-Acetam inophen-Caff (Fioricet) 50-300-40 mg capsule Discontinued 1 CAP PO Q4H August 05, 2018 1:00am January 13, 2020 8:36am acetaminophen 325 mg / HYDROcodone bitartrate 5 mg oral tablet (6 sources) Opioid Agonist Start: 07-21-2018 End: 07-23-2018 take 1 tablet by mouth every four hours as needed Hydrocodone-Aceta minophen Discontinued 1 TABLET PO EVERY 4 HOURS NEEDED 02 09July 21, 2018 1:00am July 23, 2018 1:06am estradiol 0.01 mg vaginal insert (20 sources) Estrogen Start: 07-17-2017 End: 02-26-2023 Estradiol Discontinued 10 MCG VAGINAL .COMPLEX November 04, 2022 11:50am February 26, 2023 2:20pm 10 mcg VAGINAL 1 tab per vagina twice a week 12 hr fexofenadine hydrochloride 60 mg / pseudoephedrine hydrochloride 120 mg extended release oral tablet (6 sources) alpha-Adrenergic Agonist, Histamine-1 Receptor Antagonist Start: 09-28-2018 End: 01-13-2020 Fexofenadine-Pseu doephedrine Discontinued 1 EACH PO DAILY September 28, 2018 12:00am January 13, 2020 8:36am naproxen 500 mg oral tablet (6 sources) Nonsteroidal Anti-inflammatory Drug Start: 07-21-2018 End: 08-05-2018 take 500 mg by mouth twice daily as needed Naproxen Discontinued 500 MG PO TWICE DAILY NEEDED July 21, 2018 1:00am August 05, 2018 10:54am ondansetron 4 mg disintegrating oral tablet (6 sources) Serotonin-3 Receptor Antagonist Start: 07-21-2018 End: 08-05-2018 take 4 mg by mouth every eight hours as needed Ondansetron Discontinued 4 MG PO EVERY 8 HOURS NEEDED July 21, 2018 1:00am August 05, 2018 10:54am Problems Active Problems Problem Classification Problem Date Documented Date Episodic/Chronic Esophageal disorders (6 sources) Gastroesophageal reflux disease; Translations: [Gastro-esophageal reflux disease without esophagitis] 10-02-2018 Chronic Headache; including migraine (6 sources) Migraine; Translations: [Migraine, unspecified, not intractable, without status migrainosus] 10-02-2018 Chronic Menopausal disorders (14 sources) Atrophic vaginitis; Translations: [Postmenopausal atrophic vaginitis] Chronic Osteoarthritis (2 sources) Osteoarthritis of foot joint; Translations: [Primary osteoarthritis, left ankle and foot] Onset: 04-13-2019 01-25-2021 Chronic Other aftercare (1 source) Follow-up status; Translations: [Encounter for other orthopedic aftercare] Onset: 09-17-2021 09-19-2021 Episodic Other screening for suspected conditions (not mental disorders or infectious disease) (3 sources) Encounter for screening mammogram for malignant neoplasm of breast; Translations: [Encounter for screening for malignant neoplasm of cervix] Onset: 04-07-2025 Episodic Other skin disorders (7 sources) Lichen sclerosus et atrophicus; 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] Chronic Residual codes; unclassified (2 sources) Asymptomatic menopausal state; Translations: [Asymptomatic menopausal state] Onset: 04-07-2025 Episodic Past or Other Problems Problem Classification Problem Date Documented Da te Episodic/Chronic Acquired foot deformities (1 source) Talipes planus; Translations: [Flat foot [pes planus] (acquired), left foot] Onset: 01-23-2021 01-25-2021 Episodic Acquired foot deformities (1 source) Talipes planus; Translations: [Flat foot [pes planus] (acquired), right foot] Onset: 06-01-2018 06-01-2018 Episodic Other connective tissue disease (1 source) Disorder of posterior tibial muscle tendon; Translations: [Posterior tibial tendinitis, left leg] Onset: 01-23-2021 01-25-2021 Episodic Other connective tissue disease (1 source) Metatarsalgia; Translations: [Metatarsalgia, right foot] Onset: 04-13-2019 04-13-2019 Episodic Other connective tissue disease (1 source) Tendinitis of right posterior tibial tendon; Translations: [Posterior tibial tendinitis, right leg] Onset: 06-01-2018 06-01-2018 Episodic Unclassified (1 source) Problem Results Test Name Value Interpretation Reference Range Facility Irrigator Gravity Flow Office Visit Reporton 04-07-2025 Irrigator Gravity Flow Office Visit Report [facility] [address] [place] [address], [address] [place] [address] OFFICE VISIT Date of Service: 04/07/25 MR#: [id number] Acct: [id number] Name: WENDY CANNON Rep #: [id number] : 1960 Provider: MARIE herron Age/Sex: 64/F Location: [facility] Status: Signed Intake Vital Signs 03/16/24 08:21 04/07/25 08:12 04/07/25 08:18 Height 5 ft 3 in 5 ft 3 in 5 ft 3 in Weight: 157 lb 6 oz BMI 27.8 BP 125/82 H 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) Chief Complaint: Annual Medical Case Manager Required: No Is patient in pain?: No Allergies shellfish derived Allergy (Mild, Verified 04/07/25 08:12) NEEDS FOLLOW-UP Medications ???Medication ???Instructions ???Recorded ???Confirmed ???Type rizatriptan 10 mg tablet (Maxalt) 10 mg PO ONCE PRN Migraine Sympto ms 08/05/18 04/07/25 History multivitamin with folic acid 400 1 tab PO DAILY SUPPLEMENT 09/28/18 04/07/25 History mcg tablet pantoprazole 40 mg tablet,delayed 20 mg PO DAILY PRN GERD 02/04/22 04/07/25 History release clobetasol 0.05 % topical ointment 1 applic topical .COMPLEX #15 gr ams 04/07/25 04/07/25 Rx estradiol 10 mcg vaginal tablet 10 mcg vaginal .COMPLEX #24 tabs 0 04/07/25 04/07/25 Rx Is last menstrual period known: No Post menopausal: Yes Patient : No : No PFSH Medical History Postmenopausal bleeding Migraines GERD (gastroesophageal reflux disease) Surgical History History of ankle surgery H/O foot surgery History of tonsillectomy H/O elbow surgery Family History Mother Hypertension Father Kidney disease Social History current occupational status: retired Smoking Status: Never smoker alcohol intake: current details: occasionally substance use type: does not use caffeine: Yes what type of physical activity do you participate in: other details: tennis frequency: 3-4 times per week seatbelt use: always do you feel safe at home: Yes additional social history: [place] History 3 Elective abortions Hx Para 3 Spontaneous abortions Hx # Term Pregnancies Ectopic pregnancies Hx # Pregnancies Multiple births # of living children Past Pregnancies Del. Date Name GA/Weeks Outcome Route Bth Weight Infant Gen Labor Lgth Anesthesia Del Locatn Provider FOB Unknown 1983 Christopher Unknown 1985 Ronald Male Unknown 1988 Jennifer Female HPI Encounter for routine gynecological examination Details: WENDY CANNON is a 64 year old who presents for annual exam. Denies concerns. Needs refills on clobetesol and vagifem. Last PAP: 2023 neg History of abnormal PAP:2022 +HPV Last mammogram: 2023 History of abnormal mammogram: no Colon cancer screenin Other preventative health care screenings: Mark Female Reproductive History Questions: metrorrhagia: No, sexually active: Yes, dyspareunia: No and PCB: No Menopausal Treatment: Yes Vaginal Estrogen ROS Const Constitutional: Denies fatigue, weight gain or weight loss Cardio Card: Denies chest pain Resp Resp: Denies cough or dyspnea on exertion GI GI: Denies abdominal pain, bloating, change in stool character, constipation or vomiting : Reports as per HPI; Denies difficulty voiding, pelvic pain, urinary frequency, urinary incontinence, urinary urgency, vaginal discharge or vaginal pruritus Exam Const General: cooperative, healthy appearing, no acute distress and well developed Orientation: alert, oriented to person and oriented to place HENMD Head: normal to inspection Neck Neck: normal visual inspection Thyroid: thyroid normal Lymphatic: no lymphadenopathy noted Chest Breast inspection: normal inspection of the breasts and normal inspection of the axillae Breast palpation: normal palpation of the breasts, normal palpation of the axillae and no axillary lymphadenopathy Resp Effort Inspection: normal respiratory effort GI Palpation: soft, no masses and nontender Rectal Exam: deferred External Female Exam: normal external appearance and normal appearance of the urethra Urethra: normal appearance of the urethra and normal palpation Speculum Exam - Vagina: normal appearance of the vagina (good esrogen effect, no silver whitening) and normal vaginal discharge Speculum Exam - Cervix: normal appearance of the cervix Bimanual Exam- Vagina Uterus: normal bimanual exam, uterine size normal, uterine shape normal and non-tender Bimanual Exam- Adnexa, other: normal adnexae, no masses, normal and non-tender Pelvic Support: normal Neuro (more content not included)... Normal [facility] Absolute lymphocyte countOrd ered By: Noel Grace on 11-18-2023 Lymphocytes Auto (Unsp spec) [#/Vol] 1.49 10*3/uL 0.83-4.51 [facility] Automated lymphocyte count a s percentage of total leukocytesOrdered By: Noel Grace on 11-18-2023 Lymphocytes/100 WBC Auto (Unsp spec) 39.6 % 19-41 [facility] Basophil percentageOrdered B y: Noel Grace on 11-18-2023 Basophils/100 WBC (Bld) 1.3 % 0-1 [facility] Bilirubin [Mass/Vol] 0.50 mg/dL 0.20-1.00 [facility] Comment on above: For patients on eltr ombopag therapy, use of Dimension [place] TBIL is not recommended. Chloride [Moles/Vol] 108 mmol/L 98-107 [facility] Eosinophils/100 WBC (Bld) 2.4 % 0-5 [facility] Glucose [Mass/Vol] 93 mg/dL 74-106 [facility] Hemoglobin (Bld) [Mass/Vol] 13.1 g/dL 12.0-15.0 [facility] Monocytes/100 WBC (Bld) 12.5 % 0-10 [facility] Neutrophils (Bld) [#/Vol] 1.7 10*3/uL 2.0-7.7 [facility] Neutrophils/100 WBC (Bld) 43.9 % 47-70 [facility] Potassium [Moles/Vol] 4.0 mmol/L 3.5-5.1 [facility] Protein [Mass/Vol] 7.2 g/dL 6.4-8.2 [facility] Sodium [Moles/Vol] 140 mmol/L 136-145 [facility] WBC (Bld) [#/Vol] 3.8 10*3/uL 4.4-11.0 [facility] Determination of erythrocyte mean corpuscular volume (MCV)Ordered By: Noel Grace on 11-18-2023 MCV (RBC) [Entitic vol] 96.6 fL 81-99 [facility] Erythrocyte distribution wid th ratioOrdered By: Noel Grace on 11-18-2023 Erythrocyte distribution width (RBC) [Ratio] 13.2 % 11.6-14.6 [facility] Erythrocyte distribution wid th standard deviationOrdered By: Noel Grace on 11-18-2023 Erythrocyte distribution width (RBC) [Entitic vol] 47.2 fL 35.1-43.9 [facility] Hematocrit Auto (Bld) [Volum e fraction]Ordered By: Noel Grace on 11-18-2023 Hematocrit (Bld) [Volume fraction] 39.3 % 37-47 [facility] Immature granulocytes/100 WB C Auto (Bld)Ordered By: Noel Grace on 11-18-2023 Immature granulocytes/100 WBC (Bld) 0.300 % 0.0-0.9 [facility] Comment on above: IG% - Immature Granu locytes (promyelocytes, myelocytes and metamyelocytes) > 1% indicates that a LEFT SHIFT is Present. Laboratory - Chemistry and C hemistry - challengeOrdered By: Noel Grace on 11-18-2023 Albumin/Globulin [Mass ratio] 1.1 {ratio} 0.9-2.4 [facility] ALP [Catalytic activity/Vol] 72 U/L 45-117 [facility] ALT [Catalytic activity/Vol] 24 U/L 13-56 [facility] CO2 [Moles/Vol] 27.0 mmol/L 21.0-32.0 [facility] Globulin (S) [Mass/Vol] 3.4 g/dL 2.2-4.2 [facility] Urea nitrogen/Creatinine [Mass ratio] 26.5 mg/mg 10-20 [facility] Laboratory - Hematology and Cell countsOrdered By: Noel Grace on 11-18-2023 MCH (RBC) [Entitic mass] 32.2 pg 27.0-32.0 [facility] MCHC (RBC) [Mass/Vol] 33.3 g/dL 32-36 [facility] Nucleated RBC/100 WBC (Bld) [Ratio] 0 % 0-5 [facility] Platelet mean volume (Bld) [Entitic vol] 10.5 fL 6.2-12.0 [facility] Platelets (Bld) [#/Vol] 212 10*3/uL 150-450 [facility] No Panel InformationOrdered By: Noel Grace on 11-18-2023 Estimated GFR (MDRD) Amer 93 mL/min >60 [facility] Comment on above: GFR Calc Estimated GFR (MDRD) Non-Af Amer 77 mL/min >60 [facility] Comment on above: Non- GFR Calc Vitamin D 25-Hydroxy 32.4 ng/mL [facility] Comment on above: Vitamin D 25(OH) Sta tus Range Deficiency <20 ng/mL (50nmol/L) Insufficiency 20 - 30 ng/mL (50 - 75 nmol/L) Sufficiency 30 - 100 ng/mL (75 - 250 nmol/L) Toxicity >100 ng/mL (>250 nmol/L) RBC Auto (Bld) [#/Vol]Ordere d By: Noel Grace on 11-18-2023 RBC (Bld) [#/Vol] 4.07 10*6/uL 4.2-5.4 [facility] Serum or plasma calcium luna urement (mass/volume)Ordered By: Noel Grace on 11-18-2023 Calcium [Mass/Vol] 8.9 mg/dL 8.5-10.1 [facility] Serum or plasma creatinine m easurement (mass/volume)Ordered By: Noel Grace on 11-18-2023 Creatinine [Mass/Vol] 0.79 mg/dL 0.55-1.02 [facility] Comment on above: The validity of the calculated GFR & GFRAA in patients over 70 years has not been determined. Clinical correlation is essential. Serum or plasma urea nitroge n measurement (mass/volume)Ordered By: Noel Grace on 11-18-2023 Urea nitrogen [Mass/Vol] 21 mg/dL 7-18 [facility] Thin prep Papanicolaou smear with manual screeningOrdered By: Noel Grace on 11-18-2023 Thin prep Papanicolaou smear with manual screening 3.8 g/dL 3.2-5.0 [facility] Thin prep Papanicolaou smear with manual screening 26 U/L 15-37 [facility] Thin prep Papanicolaou smear with manual screening 5 5-15 [facility] Cervical or vagninal specime n microscopic examination by cytology stain (reported asOrdered By: Bambi Molina on 02-26-2023 Cytology report Cyto stain Doc (Cvx/Vag) Comment . [facility] Comment on above: The Pap smear is a s creening test designed to aid in thedetection of premalignant and malignant conditions of theuterine cervix. It is not a diagnostic procedure andshould not be used as the sole means of detecting cervicalcancer. Both false-positive and false-negative reports dooccur. Cervical specimen human vera lloma virus (HPV) type 16 DNA detection by probe with sigOrdered By: Bambi Molina on 02-26-2023 HPV 16 DNA Probe+sig amp Ql (Cvx) Negative Negative [facility] Detection in cervical specim en of any of human papilloma virus (HPV) 16, 18, 31, 33,Ordered By: Bambi Molina on 02-26-2023 HPV 16+18+31+33+35+39+45+5 1+52+56+58+59+66+68 DNA Probe+sig amp Ql (Cvx) Positive Negative [facility] Comment on above: This nucleic acid am plification test detects fourteen high- risk HPV types (16,18,31,33,35,39,45,51,52,56,58,59,66,68)without differentiation. Laboratory - CytologyOrdered By: Bmabi Molina on 02-26-2023 Truck Driver Heavy Cyto stain Nom (Cvx/Vag) [ID] Comment . [facility] Comment on above: [place] Chavirate chnologist (ASCP) Laboratory - Miscellaneous t estsOrdered By: Bambi Molina on 02-26-2023 Service comment (Unsp spec) [Interp] Comment . [facility] Comment on above: This liquid based Th inPrep(R) pap test was screened withthe use of an image guided system. Service comment (Unsp spec) [Interp] . . [facility] Liquid-based cerv Pap + CT/G C by RAMONA w reflex to high-risk HPV for ASCUSOrdered By: Bambi Molina on 02-26-2023 Cytology report Cyto stain.thin prep Doc (Cvx/Vag) Comment . [facility] Comment on above: Criteria met, see HP V Genotype results. No Panel InformationOrdered By: Bambi Molina on 02-26-2023 HPV Type 18 Comment Negative Negative [facility] Comment on above: Performed at: [facility] - [facility] [address] [id number] Director: Nury Kaur MD, Phone: [phone] at: =G - [facility] [address] [id number] Director: Nury Kaur MD, Phone: [phone] Pathology report final diagnosis Narrative Comment . [facility] Comment on above: NEGATIVE FOR INTRAEP ITHELIAL LESION OR MALIGNANCY. Absolute lymphocyte countOrd ered By: Noel Grace on 11-29-2022 Lymphocytes Auto (Unsp spec) [#/Vol] 1.45 10*3/uL 0.83-4.51 [facility] Basophil percentageOrdered B y: Noel Grace on 11-29-2022 Basophils/100 WBC (Bld) 1.3 % 0-1 [facility] Bilirubin [Mass/Vol] 0.40 mg/dL 0.20-1.00 [facility] Comment on above: For patients on eltr ombopag therapy, use of Dimension [place] TBIL is not recommended. Chloride [Moles/Vol] 109 mmol/L 98-107 [facility] Cholesterol [Mass/Vol] 179 mg/dL <200 [facility] Comment on above: <200 mg/dL Desirable 200-240 mg/dL Borderline >240 mg/dL High Risk Eosinophils/100 WBC (Bld) 2.6 % 0-5 [facility] Glucose [Mass/Vol] 94 mg/dL 74-106 [facility] Neutrophils (Bld) [#/Vol] 1.7 10*3/uL 2.0-7.7 [facility] Neutrophils/100 WBC (Bld) 45.1 % 47-70 [facility] Potassium [Moles/Vol] 4.2 mmol/L 3.5-5.1 [facility] Protein [Mass/Vol] 7.3 g/dL 6.4-8.2 [facility] Sodium [Moles/Vol] 141 mmol/L 136-145 [facility] Triglyceride [Mass/Vol] 52 mg/dL <199 [facility] Comment on above: The drugs N-Acetylcy steine and Metamizole may falsely depress this assay.Serum Triglycerides Reference Interval Normal <150 mg/dL Borderline high 150 - 199 mg/dL High 200 - 499 mg/dL Very High > or = 500 mg/dL WBC (Bld) [#/Vol] 3.8 10*3/uL 4.4-11.0 [facility] Blood erythrocytes count (nu mber/volume)Ordered By: Noel Grace on 11-29-2022 RBC (Bld) [#/Vol] 4.26 10*6/uL 4.2-5.4 [facility] Blood hemoglobin measurement (mass/volume)Ordered By: Noel Grace on 11-29-2022 Hemoglobin (Bld) [Mass/Vol] 13.8 g/dL 12.0-15.0 [facility] Blood lymphocytes/100 leukoc ytesOrdered By: Noel Grace on 11-29-2022 Lymphocytes/100 WBC (Bld) 37.9 % 19-41 [facility] Blood monocytes/100 leukocyt esOrdered By: Noel Grace on 11-29-2022 Monocytes/100 WBC (Bld) 12.8 % 0-10 [facility] Blood platelet mean volumeOr dered By: Noel Grace on 11-29-2022 Platelet mean volume (Bld) [Entitic vol] 10.5 fL 6.2-12.0 [facility] Determination of erythrocyte mean corpuscular volume (MCV)Ordered By: Noel Grace on 11-29-2022 MCV (RBC) [Entitic vol] 99.1 fL 81-99 [facility] Hematocrit Auto (Bld) [Volum e fraction]Ordered By: Noel Grace on 11-29-2022 Hematocrit (Bld) [Volume fraction] 42.2 % 37-47 [facility] Laboratory - Chemistry and C hemistry - challengeOrdered By: Noel Grace on 11-29-2022 ALP [Catalytic activity/Vol] 71 U/L 45-117 [facility] ALT [Catalytic activity/Vol] 43 U/L 13-56 [facility] CO2 [Moles/Vol] 28.0 mmol/L 21.0-32.0 [facility] Globulin (S) [Mass/Vol] 3.5 g/dL 2.2-4.2 [facility] Urea nitrogen/Creatinine [Mass ratio] 31.9 mg/mg 10-20 [facility] Laboratory - Hematology and Cell countsOrdered By: Noel Grace on 11-29-2022 Erythrocyte distribution width (RBC) [Entitic vol] 48.1 fL 35.1-43.9 [facility] Erythrocyte distribution width (RBC) [Ratio] 13.2 % 11.6-14.6 [facility] Immature granulocytes/100 WBC (Bld) 0.300 % 0.0-0.9 [facility] Comment on above: IG% - Immature Granu locytes (promyelocytes, myelocytes and metamyelocytes) > 1% indicates that a LEFT SHIFT is Present. MCH (RBC) [Entitic mass] 32.4 pg 27.0-32.0 [facility] Nucleated RBC/100 WBC (Bld) [Ratio] 0 % 0-5 [facility] MCHC Auto (RBC) [Mass/Vol]Or dered By: Noel Grace on 11-29-2022 MCHC (RBC) [Mass/Vol] 32.7 g/dL 32-36 [facility] No Panel InformationOrdered By: Noel Grace on 11-29-2022 Estimated GFR (MDRD) Amer 91 mL/min >60 [facility] Comment on above: GFR Calc Estimated GFR (MDRD) Non-Af Amer 75 mL/min >60 [facility] Comment on above: Non- GFR Calc Vitamin D 25-Hydroxy 48.0 ng/mL [facility] Comment on above: Vitamin D 25(OH) Sta tus Range Deficiency <20 ng/mL (50nmol/L) Insufficiency 20 - 30 ng/mL (50 - 75 nmol/L) Sufficiency 30 - 100 ng/mL (75 - 250 nmol/L) Toxicity >100 ng/mL (>250 nmol/L) Platelets bldOrdered By: Wesley Grace on 11-29-2022 Platelets (Bld) [#/Vol] 217 10*3/uL 150-450 [facility] Serum or plasma albumin luna urement (mass/volume)Ordered By: Noel Grace on 11-29-2022 Albumin [Mass/Vol] 3.8 g/dL 3.2-5.0 [facility] Serum or plasma albumin/glob ulin mass ratioOrdered By: Noel Grace on 11-29-2022 Albumin/Globulin [Mass ratio] 1.1 {ratio} 0.9-2.4 [facility] Serum or plasma calcium luna urement (mass/volume)Ordered By: Noel Grace on 11-29-2022 Calcium [Mass/Vol] 9.2 mg/dL 8.5-10.1 [facility] Serum or plasma cholesterol in HDL measurement (mass/volume)Ordered By: Noel Grace on 11-29-2022 Cholesterol in HDL [Mass/Vol] 76 mg/dL >40 [facility] Comment on above: The drugs N-Acetylcy steine and Metamizole may falsely depress this assay. Reference Range HDL <40 mg/dL Low HDL Cholesterol HDL >or= 60 mg/dL High HDL Cholesterol Serum or plasma cholesterol in VLDL measurement (mass/volume)Ordered By: Noel Grace on 11-29-2022 Cholesterol in VLDL [Mass/Vol] 10 mg/dL 5-40 [facility] Serum or plasma creatinine m easurement (mass/volume)Ordered By: Noel Grace on 11-29-2022 Creatinine [Mass/Vol] 0.82 mg/dL 0.55-1.02 [facility] Comment on above: The validity of the calculated GFR & GFRAA in patients over 70 years has not been determined. Clinical correlation is essential. Serum or plasma low density lipoprotein (LDL) cholesterol measurement (mass/volume)Ordered By: Noel Grace on 11-29-2022 Cholesterol in LDL [Mass/Vol] 93 mg/dL 0-130 [facility] Serum or plasma urea nitroge n measurement (mass/volume)Ordered By: Noel Grace on 11-29-2022 Urea nitrogen [Mass/Vol] 26 mg/dL 7-18 [facility] Thin prep Papanicolaou smear with manual screeningOrdered By: Noel Grace on 11-29-2022 Thin prep Papanicolaou smear with manual screening 39 U/L 15-37 [facility] Thin prep Papanicolaou smear with manual screening 4 5-15 [facility] Absolute lymphocyte counton 12-12-2021 Lymphocytes Auto (Unsp spec) [#/Vol] 1.44 10*3/uL 0.83-4.51 [facility] Work Phone: Basophil percentageon 2021 Basophils/100 WBC (Bld) 1.3 % 0-1 [facility] Work Phone: Bilirubin [Mass/Vol] 0.60 mg/dL 0.20-1.00 [facility] Work Phone: Comment on above: For patients on eltr ombopag therapy, use of Dimension [place] TBIL is not recommended. Chloride [Moles/Vol] 107 mmol/L 98-107 [facility] Work Phone: Eosinophils/100 WBC (Bld) 2.0 % 0-5 [facility] Work Phone: Glucose [Mass/Vol] 93 mg/dL 74-106 [facility] Work Phone: Neutrophils (Bld) [#/Vol] 1.9 10*3/uL 2.0-7.7 [facility] Work Phone: Neutrophils/100 WBC (Bld) 48.1 % 47-70 [facility] Work Phone: Potassium [Moles/Vol] 3.6 mmol/L 3.5-5.1 [facility] Work Phone: Protein [Mass/Vol] 7.5 g/dL 6.4-8.2 [facility] Work Phone: Sodium [Moles/Vol] 141 mmol/L 136-145 [facility] Work Phone: WBC (Bld) [#/Vol] 4.0 10*3/uL 4.4-11.0 [facility] Work Phone: Blood erythrocytes count (nu mber/volume)on 12-12-2021 RBC (Bld) [#/Vol] 3.97 10*6/uL 4.2-5.4 [facility] Work Phone: Blood hemoglobin measurement (mass/volume)on 12-12-2021 Hemoglobin (Bld) [Mass/Vol] 12.9 g/dL 12.0-15.0 [facility] Work Phone: Blood lymphocytes/100 leukoc yteson 12-12-2021 Lymphocytes/100 WBC (Bld) 36.0 % 19-41 [facility] Work Phone: Blood monocytes/100 leukocyt eson 12-12-2021 Monocytes/100 WBC (Bld) 12.3 % 0-10 [facility] Work Phone: Blood platelet mean volumeon 12-12-2021 Platelet mean volume (Bld) [Entitic vol] 10.5 fL 6.2-12.0 [facility] Work Phone: Determination of erythrocyte mean corpuscular volume (MCV)on 12-12-2021 MCV (RBC) [Entitic vol] 98.2 fL 81-99 [facility] Work Phone: Hematocrit Auto (Bld) [Volum e fraction]on 12-12-2021 Hematocrit (Bld) [Volume fraction] 39.0 % 37-47 [facility] Work Phone: Laboratory - Chemistry and C hemistry - challengeon 12-12-2021 ALP [Catalytic activity/Vol] 76 U/L 45-117 [facility] Work Phone: ALT [Catalytic activity/Vol] 31 U/L 13-56 [facility] Work Phone: CO2 [Moles/Vol] 28.0 mmol/L 21.0-32.0 [facility] Work Phone: Globulin (S) [Mass/Vol] 3.5 g/dL 2.2-4.2 [facility] Work Phone: Urea nitrogen/Creatinine [Mass ratio] 31.6 mg/mg 10-20 [facility] Work Phone: Laboratory - Hematology and Cell countson 12-12-2021 Erythrocyte distribution width (RBC) [Entitic vol] 47.2 fL 35.1-43.9 [facility] Work Phone: Erythrocyte distribution width (RBC) [Ratio] 13.1 % 11.6-14.6 [facility] Work Phone: Immature granulocytes/100 WBC (Bld) 0.300 % 0.0-0.9 [facility] Work Phone: Comment on above: IG% - Immature Granu locytes (promyelocytes, myelocytes and metamyelocytes) > 1% indicates that a LEFT SHIFT is Present. MCH (RBC) [Entitic mass] 32.5 pg 27.0-32.0 [facility] Work Phone: Nucleated RBC/100 WBC (Bld) [Ratio] 0 % 0-5 [facility] Work Phone: MCHC Auto (RBC) [Mass/Vol]on 12-12-2021 MCHC (RBC) [Mass/Vol] 33.1 g/dL 32-36 [facility] Work Phone: No Panel Informationon 12-12 Estimated GFR (MDRD) Amer 90 mL/min >60 [facility] Work Phone: Comment on above: GFR Calc Estimated GFR (MDRD) Non-Af Amer 74 mL/min >60 [facility] Work Phone: Comment on above: Non- GFR Calc Vitamin D 25-Hydroxy 51.0 ng/mL [facility] Work Phone: Comment on above: Vitamin D 25(OH) Sta tus Range Deficiency <20 ng/mL (50nmol/L) Insufficiency 20 - 30 ng/mL (50 - 75 nmol/L) Sufficiency 30 - 100 ng/mL (75 - 250 nmol/L) Toxicity >100 ng/mL (>250 nmol/L) Platelets bldon 12-12-2021 Platelets (Bld) [#/Vol] 216 10*3/uL 150-450 [facility] Work Phone: Serum or plasma albumin luna urement (mass/volume)on 12-12-2021 Albumin [Mass/Vol] 4.0 g/dL 3.2-5.0 [facility] Work Phone: Serum or plasma albumin/glob ulin mass ratioon 12-12-2021 Albumin/Globulin [Mass ratio] 1.1 {ratio} 0.9-2.4 [facility] Work Phone: Serum or plasma calcium luna urement (mass/volume)on 12-12-2021 Calcium [Mass/Vol] 9.0 mg/dL 8.5-10.1 [facility] Work Phone: Serum or plasma creatinine m easurement (mass/volume)on 12-12-2021 Creatinine [Mass/Vol] 0.82 mg/dL 0.55-1.02 [facility] Work Phone: Comment on above: The validity of the calculated GFR & GFRAA in patients over 70 years has not been determined. Clinical correlation is essential. Serum or plasma urea nitroge n measurement (mass/volume)on 12-12-2021 Urea nitrogen [Mass/Vol] 26 mg/dL 7-18 [facility] Work Phone: Thin prep Papanicolaou smear with manual screeningon 12-12-2021 Thin prep Papanicolaou smear with manual screening 25 U/L 15-37 [facility] Work Phone: Thin prep Papanicolaou smear with manual screening 6 5-15 [facility] Work Phone: Clinical Summary: Chirag matt 10-29-2021 MC75 OP Visit Invalid Interpretation Code [facility] Work Phone: Vital Signs Date Time Vital Sign Value Performing Clinician Facility 02-26-2023 14:01-0400 Body height 160.[address] Noel Grace Work Phone: [facility] 02-26-2023 13:58-0400 Body mass index (BMI) [Ratio] 26.8 kg/m2 Dr. Noel Grace Work Phone: [facility] 02-26-2023 13:58-0400 Body weight 68.[address] Noel Grace Work Phone: [facility] 02-26-2023 13:58-0400 Diastolic blood pressure 77 mm[Hg] Dr. Noel Grace Work Phone: [facility] 02-26-2023 13:58-0400 Systolic blood pressure 120 mm[Hg] Dr. Noel Grace Work Phone: [facility] 05-06-2022 15:20-0400 Body height 160.[address] Noel Grace Work Phone: [facility] Work Phone: 05-06-2022 15:15-0400 Body mass index (BMI) [Ratio] 26.8 kg/m2 Dr. Noel Grace Work Phone: [facility] Work Phone: 05-06-2022 15:15-0400 Body weight 68.[address] Noel Grace Work Phone: [facility] Work Phone: 05-06-2022 15:15-0400 Diastolic blood pressure 92 mm[Hg] Dr. Noel Grace Work Phone: [facility] Work Phone: 05-06-2022 15:15-0400 Systolic blood pressure 140 mm[Hg] Dr. Noel Grace Work Phone: [facility] Work Phone: 03-20-2022 11:33-0400 Body mass index (BMI) [Ratio] 27.5 kg/m2 Dr. Noel Grace Work Phone: [facility] Work Phone: 03-20-2022 11:33-0400 Body weight 70.[address] Noel Grace Work Phone: [facility] Work Phone: 03-20-2022 11:33-0400 Diastolic blood pressure 84 mm[Hg] Dr. Noel Grace Work Phone: [facility] Work Phone: 03-20-2022 11:33-0400 Systolic blood pressure 122 mm[Hg] Dr. Noel Grace Work Phone: [facility] Work Phone: 02-04-2022 08:54-0400 Body mass index (BMI) [Ratio] 27.3 kg/m2 Dr. Noel Grace Work Phone: [facility] Work Phone: 02-04-2022 08:54-0400 Body weight 69.[address] Noel Grace Work Phone: [facility] Work Phone: 02-04-2022 08:54-0400 Diastolic blood pressure 70 mm[Hg] Dr. Noel Grace Work Phone: [facility] Work Phone: 02-04-2022 08:54-0400 Systolic blood pressure 110 mm[Hg] Dr. Noel Grace Work Phone: [facility] Work Phone: 12-19-2021 08:32-0400 Body height 160.02 cm [facility] Work Phone: NEGATED: Highlighted [id number] 09:42-0400 Body height 160.02 cm Ruma Perry AT [facility] Work Phone: NEGATED: Highlighted [id number] 09:42-0400 Body height 160 cm Ruma Perry AT [facility] Work Phone: NEGATED: Highlighted [id number] 09:42-0400 Body mass index (BMI) [Ratio] 27.2 kg/m2 Ruma Perry AT [facility] Work Phone: NEGATED: Highlighted [id number] 09:42-0400 Body weight 69.4 kg Ruma Perry AT [facility] Work Phone: NEGATED: Highlighted [id number] 09:42-0400 Body weight 70 kg Ruma Perry AT [facility] Work Phone: Encounters Encounter Date Encounter Type Care Provider Facility Start: 05-10-2025 ambulatory Bambi Llamass DEVELOPMENT SPECIALIST Facil ity:[facility] Start: 04-08-2025 ambulatory Bambitaylor Llamass DEVELOPMENT SPECIALIST Facil ity:[facility] Start: 04-07-2025 ambulatory Bambi Molina DEVELOPMENT SPECIALIST Facil ity:[facility] Start: 04-07-2025 End: 04-07-2025 ambulatory Bambi Tracy DEVELOPMENT SPECIALIST Facility:[facility] Start: 11-18-2023 End: 11-18-2023 ambulatory [facility] Work Phone: Start: 11-18-2023 End: 11-18-2023 Patient encounter procedure [facility] Start: 03-03-2023 End: 03-03-[address] Noel Grace Work Phone: [facility] Work Phone: Start: 03-03-2023 End: 03-03-[address] Noel Grace Work Phone: [facility]-Outpatient Breast Imaging Work Phone: Start: 02-26-2023 End: 02-26-[address] Noel Grace Work Phone: [facility]-Laboratory, Specimen Work Phone: Start: 02-26-2023 End: 02-26-[address] Noel Grace Work Phone: [facility] Work Phone: Start: 11-29-2022 End: 11-29-2022 ambulatory [facility] Work Phone: Start: 11-29-2022 End: 11-29-2022 Patient encounter procedure [facility]-Laboratory, [facility] Start: 05-10-2022 End: 05-10-[address] Noel Grace Work Phone: [facility] Work Phone: Start: 05-10-2022 End: 05-10-[address] Noel Grace Work Phone: [facility]-Ultrasound, H Start: 05-06-2022 End: 05-06-[address] Noel Grace Work Phone: [facility]-Laboratory, Specimen Start: 05-06-2022 End: 05-06-[address] Noel Grace Work Phone: [facility] Start: 03-25-2022 End: 03-25-[address] Noel Grace Work Phone: [facility]-Physical Therapy Start: 03-20-2022 End: 03-20-[address] Noel Grace Work Phone: [facility] Start: 02-28-2022 End: 02-28-[address] Noel Grace Work Phone: [facility]-Outpatient Breast Imaging Start: 02-04-2022 End: 02-04-[address] Noel Grace Work Phone: [facility] Start: 12-19-2021 End: 12-19-2021 Patient encounter procedure [facility]-Outpatient Bone Densitometry Start: 12-12-2021 End: 12-12-2021 Patient encounter procedure [facility]-Laboratory, [facility] Procedures Date Procedure Procedure Detail Performing Clinician Start: 03-03-2023 Screening mammography Kayla Grace Work Phone: Start: 05-10-[address] Gabriel Grace Work Phone: Start: 05-10-[address] Noel Grace Work Phone: Start: 02-28-2022 Screening mammography Kayla Grace Work Phone: Start: 12-19-2021 Dual energy X-ray absorptiometry Start: 10-29-2021 End: 10-29-2021 Calc BMI abv up radha f/u Flower Nicolas MD Work Phone: Start: 10-29-2021 End: 10-29-2021 Current tobacco non-user cad cap copd pv dm Flower Nicolas MD Work Phone: Start: 10-29-2021 End: 10-29-2021 Doc rsn no hbp scrn or f/u Flower Nicolas MD Work Phone: Start: 10-29-2021 End: 10-29-2021 Docrev cur meds by elig clin Flower Nicolas MD Work Phone: Start: 10-29-2021 End: 10-29-2021 Pain neg no plan Flower Nicolas MD Work Phone: Start: 10-29-2021 End: 10-29-2021 Patient encounter procedure Flower Nicolas MD Work Phone: Start: 01-12-2019 H/O: surgery Status post ri ght foot surgery Ruma Perry AT NEGATED: Highlighted rowStart: 10-29-2021 End: 10-29-2021 Documentation of current medications Ruma Perry AT Plan of Treatment Date Care Activity Detail Author Start: 10-29-2022 End: 10-29-2021 Radex foot complete minimum 3 views XR FOOT 3+ VWS-LT [facility] Work Phone: Start: 12-24-2021 End: 12-24-2021 Patient encounter procedure Appointment [facility] Work Phone: Start: 10-29-2021 End: 10-29-2021 Patient encounter procedure Appointment [facility] Work Phone: Start: 10-29-2021 End: 10-29-2021 Radex foot complete minimum 3 views XR FOOT 3+ VWS-LT [facility] Work Phone: Payers Date Payer Category Payer Self-pay [id number] 2024 Medicare [id number] 2024 Unknown [id number] 2013 Unknown [id number] Medicare [employer] MEDICARE PPO [id number] Private Health Insurance FORMERLY [facility] [id number] Unknown [id number] Unknown [id number] Unknown [id number] Social History Date Type Detail Facility Start: 02-01-2021 End: 02-26-2023 Assertion Unknown if ever smoked [facility] Work Phone: Start: 1960 Sex Assigned At Female W [facility] Clinical Note 02-26-2023 Note Date & Type Note Facility 02-26-2023 Note [facility] Pap Smear Specimen Adequacy February 26, 2023 5:08pm Comment . Satisfactory for evaluation. Endocervical and/or squamous metaplasticcells (endocervical component) are present. Comment on above: Satisfactory for tani luation. Endocervical and/or squamous metaplasticcells (endocervical component) are present. Instructions 10-29-2021 Note Date & Type Note Facility 10-29-2021 Instructions CompletedPatient advised to follow-up with Primary Care Physician for BMI management. [facility] Work Phone: Evaluation note Note Date & Type Note Facility Evaluation note There may be informa tion available, but it has not been provided by the sender. [facility] Work Phone: Evaluation note Note Date & Type Note Facility Evaluation note No assessment information availa ble [facility] Work Phone: Evaluation note Note Date & Type Note Facility Evaluation note Diagnosis Onset Date Atrophic vaginitis acute Lichen sclerosus acute Encounter for routine gyneco logical examination noneactive Atrophic vaginitis acute Lichen sclerosus acute Postmenopausal bleeding acut e [facility] Work Phone: Evaluation note Note Date & Type Note Facility Evaluation note Diagnosis Onset Date Atrophic vaginitis acute Lichen sclerosus acute Encounter for routine gyneco logical examination noneactive [facility] Work Phone: Chief Complaint Chief Complaint Description Start Date left ankle post Left hindfoo t triple arthrodesis Left calcaneal autograft harvest Left cutaneous tendo Achilles lengthening on 08/08/2021 Preliminary chief co mplaint data, not yet signed by the author as of Advance Directives No Advanced Directives Records Found Advance Directive Response Recorded Date/ Time Advance Directives Yes June 8:12am Living Will Yes June 22, 019 2:17pm Power of Improvement Specialist Yes June 22, 2019 2:17pm Advance Directive Response Recorded Date/ Time Advance Directives Yes June 7:12am Living Will Yes June 22, 2 019 1:17pm Power of Improvement Specialist Yes June 22, 2019 1:17pm Family History No Family History Records Found Relationship Condition Age at Onset Recorded Date/T guerda mother Hypertension Unknown father Kidney disorder Unknown Chief Complaint and Reason for Visit Chief Complaint OSTEOPENIA Chief Complaint Annual (SUPPORT DIRECTOR) SCREENING MED CHECK OA L HINDFOOT,AFTERCARE;INSUFFICIENT TIB TENDON EMB BLEEDING Reason for Visit Atrophic vaginitis Lichen sclerosus Encounter for routine gynecological examination Atrophic vaginitis Lichen sclerosus Postmenopausal bleeding Chief Complaint Annual (SUPPORT DIRECTOR) SCREENING Reason for Visit Atrophic vaginitis Lichen sclerosus Encounter for routine gynecological examination Summary Purpose Additional Source Comments Reason for Visit (unrecogniz ed section and content) Reason For Visit Description Postop - subsequent visit Preliminary reason f or visit data, not yet signed by the author as of left ankle post Left hindfoo t triple arthrodesis Left calcaneal autograft harvest Left cutaneous tendo Achilles lengthening on 08/08/2021 Goals (unrecognized section and content) Goals may be documented in a n alternate sectionGoals may be documented in an alternate sectionGoals may be documented in an alternate sectionGoals may be documented in an alternate sectionGoals may be documented in an alternate sectionGoals may be documented in an alternate section Care Teams (unrecognized sec tion and content) Team Status: Active Member Role Status Dates Dr. Noel Grace MD Family Provider Active Dr. Noel Grace MD Primary Care Provider Active Team Status: Inactive Member Role Status Dates Dr. Noel Grace MD Primary Care Provider, Attend ing Provider Active Team Status: Inactive Member Role Status Dates Dr. Noel Grace MD Primary Care Provider, Referr ing Provider Active Bambi Molina NP, NP-C Attending Provider Active Team Status: Inactive Member Role Status Dates Dr. Noel Grace MD Primary Care Provider Active Bambi Molina DEVELOPMENT SPECIALIST, DEVELOPMENT SPECIALIST-C Attending Provider, Referring Provider Active INFORMATION SOURCE (unrecogn ized section and content) DATE CREATED AUTHOR 04/07/2025 [facility] FOR RECORDS PERTAINING TO PATIENTS WHO ARE OR HAVE BEEN ENROLLED IN A CHEMICAL DEPENDENCY/SUBSTANCEABUSE PROGRAM, SOME INFORMATION MAY BE OMITTED. This clinical summary was aggregated from multiple sources. Caution should be exercised in using it in the provision of clinical care. This summary normalizes information from multiple sources, and as a consequence, information in this document may materially change the coding, format and clinical context of patient data. In addition, data may be omitted in some cases. CLINICAL DECISIONS SHOULD BE BASED ON THE PRIMARY CLINICAL RECORDS. [facility]. provides no warranty or guarantee of the accuracy or completeness of information in this document.
== END | disposition home or self-care (01) ==
LOC: OPBI 08:39
PROVIDERS: PCP Family Medicine
DX: Z12.31 Encounter for screening mammogram for malignant neoplasm of breast (principal)
CPT/HCPCS: 77063; 77067

== ENCOUNTER → 2025-05-05 | Outpatient (CLI) | payer MEDICARE, OTHER, SELFPAY ==
--- NOTE | 2025-05-05 09:00 | BD_ITS ---
PROCEDURE: DEXA BONE DENSITY STUDY 05/05/2025 REASON FOR EXAM: OSTEOPENIA F, age 64 y/o . Postmenopausal. TECHNIQUE: Procedure Code: BDDBD Modality: DX Procedure: DEXA BONE DENSITY STUDY COMPARISON: December 19, 2021. FINDINGS: BMD and T-SCORES Lumbar spine: 1.056 g/cm2, T-score -0.2 Levels: L1 through L4 Change from prior: Loss of 0.4%. Left femoral neck: 0.670 g/cm2, T-score -1.6 Femoral neck comparison data not recommended for monitoring change. Left total hip: 0.796 g/cm2, T-score -1.2 Change from prior: Improvement of 1.3%. Right femoral neck: 0.687 g/cm2, T-score -1.5 Femoral neck comparison data not recommended for monitoring change. Right total hip: 0.753 g/cm2, T-score -1.5 Change from prior: Loss of 3.8%. The World Health Organization has defined the following categories based on bone density: Normal bone density: T-score equal to or greater than -1.0 Osteopenia: T-score between -1.0 and -2.5 Osteoporosis: T-score equal to or less than -2.5 FRAX (or Comparable) Fracture Risk Assessment: 10 Year Probability of Fracture: Major Osteoporotic Fracture: 16% Hip Fracture: 1.9% (Note: FRAX is not to be reported in setting of normal range bone density, osteoporosis on DEXA, known history of osteoporosis, prior osteoporotic hip or vertebral fracture, or for any patient undergoing pharmacological treatment for bone loss.) The National Osteoporosis Foundation (NOF) recommends pharmacological treatment for patients with a FRAX 10-year risk of 3% or higher for a hip fracture, or 20% or higher for a major osteoporotic fracture, to prevent osteoporosis and reduce fracture risk. The patient does meet the pharmacological treatment recommendations for prevention of osteoporosis. BD/Dexa Bone Density Study IMPRESSION: OSTEOPENIA. Recommend follow-up as clinically warranted. Reading Location: [place] [id number]
--- OUTSIDE RECORDS SUMMARY | 2025-05-05 09:11 | XMS RPT_ITS | CCD ---
Author Organization [facility]ini[facility] Care Team Providers Care Motorcycle Tester Name Role Phone Fidencio Flower KOLB Unavailable Dr. Noel Grace Primary Care Provider Dr. Noel Grace Referring Provider Vichy POURED CONCRETE WALL TECHNICIAN, POURED CONCRETE WALL TECHNICIAN-C Bambi Attending Provider [phone] Dr. Noel Grace Primary Care Provider [phone] Dr. Noel Grace Referring Provider Vichy POURED CONCRETE WALL TECHNICIAN, POURED CONCRETE WALL TECHNICIAN-C Bambi Attending Provider Dr. Noel Grace MD Primary Care Physician Dr. Noel Grace MD Referring Provider Vichy POURED CONCRETE WALL TECHNICIAN-C, Bambi Attending Physician Tracy POURED CONCRETE WALL TECHNICIAN-C, Bambi Referring Provider McMorrow POURED CONCRETE WALL TECHNICIAN-CAddy Attending Physician McMorrow POURED CONCRETE WALL TECHNICIAN-C Addy Referring Provider Vichy POURED CONCRETE WALL TECHNICIAN-C, Bambi Nurse Practitioner Dr. Noel Grace MD Attending Physician [phone] Noel Grace Attending Unavailable Noel Grace Referring Unavailable Noel Grace Primary Care Unavailable Tracy POURED CONCRETE WALL TECHNICIANBambi Consulting Unavailable McMorrow POURED CONCRETE WALL TECHNICIANAddy Attending Unavailable McMorrow POURED CONCRETE WALL TECHNICIAN Addy Referring Unavailable Noel Grace Primary Care Unavailable Vichy POURED CONCRETE WALL TECHNICIANBambi Attending Unavailable Tracy POURED CONCRETE WALL TECHNICIANBambi Referring Unavailable Noel Grace Primary Care Unavailable Bambi Molina NP Attending Unavailable Noel Grace Primary Care Unavailable Noel Grace Referring Unavailable Bambi Molina NP Attending Unavailable Bambi Molina NP Referring Unavailable Noel Grace Primary Care Unavailable Allergies Allergy Classification Reported Allergen(s) Allergy Type Date of Onset Reaction(s) Facility (1 source) Dust; Translations: [DUST] allergy to substance 1 [facility] Work Phone: (1 source) Pollen; Translations: [POLLEN] allergy to substance 1 [facility] Work Phone: (1 source) Shellfish; Translations: [SHELLFISH] food allergy 1 [facility] Work Phone: (7 sources) Shellfish; Translations: [shellfish derived] Allergy to substance 2 NEEDS FOLLOW-UP [facility] Medications Current Medications Medication Drug Class(es) Dates Sig (Normalized) Sig (Original) Multivitamin With Folic Acid (6 sources) Start: [...] TABLET PO DAILY September 27, 2018 11:00pm Multivitamin With Folic Acid 1 TABLET tablet (2 sources) Start: 09-28-2018 take 1 tablet by mouth once daily pantoprazole 40 mg delayed release oral tablet (15 sources) Proton Pump Inhibitor Start: 02-04-2022 Start: 02-04-2022 take 20 mg by mouth once daily Pantoprazole Active 20 MG PO DAILY February 04, 2022 8:52am Start: 05-21-2021 take 1 tablet by ronna th once daily as needed PANTOPRAZOLE SODIUM 20 MG TBEC 1 tablet by mouth once a day as needed pantoprazole [id number] Mirian Munoz LPN Start: 09-28-2018 End: 02-04-2022 take 1 tablet by mouth once daily Pantoprazole 40 MG tablet Discontinued 40 mg PO DAILY September 28, 2018 12:00am February 04, 2022 8:53am GERD rizatriptan 10 mg oral tablet (9 sources) Serotonin-1b and Serotonin-1d Receptor Agonist Start: 08-05-2018 take 1 tablet by mouth once as needed Completed/Discontinued Medications Medication Drug Class(es) Dates Sig (Normalized) Sig (Original) acetaminophen 300 mg / butalbital 50 mg / caffeine 40 mg oral capsule (8 sources) Barbiturate, Central Nervous System Stimulant, Methylxanthine Start: 08-05-2018 End: 01-13-2020 Butalbital-Acetami nophen-Caff (Fioricet) 50-300-40 mg capsule Discontinued 1 NMA PO Q4H as needed for MIGRAINES August 05, 2018 1:00am January 13, 2020 8:36am acetaminophen 325 mg / HYDROcodone bitartrate 5 mg oral tablet (8 sources) Opioid Agonist Start: 07-21-2018 End: 07-23-2018 Hydrocodone-Acetam inophen 1 TABLET tablet Discontinued 1 {tbl} PO EVERY 4 HOURS NEEDED as needed for Pain 20 2 0 July 21, 2018 1:00am July 22, 2018 1:00am July 23, 2018 1:06am Calculus of kidney Calculus of kidney Start: 07-21-2018 End: 07-23-2018 take 1 tablet by mouth every four hours as needed Hydrocodone-Acetaminophen Discontinued 1 TABLET PO EVERY 4 HOURS NEEDED 20 2 July 21, 2018 1:00am July 23, 2018 1:06am clobetasol propionate 0.0005 mg/mg topical ointment (20 sources) Corticosteroid Start: 03-16-2024 End: 04-07-2025 Clobetasol 0.05 % ointment Discontinued 1 NMA TOPICAL .COMPLEX 15 2 July 18, 2024 3:05pm April 07, 2025 8:22am 1 application topical to affected area once a week. For symptoms use daily for 5 days prn, small amount and massage in; Start: 02-04-2022 End: 03-16-2024 Clobetasol 0.05 % ointment D iscontinued 1 NMA TOPICAL .COMPLEX 15 2 November 18, 2023 8:21am March 16, 2024 8:43am 1 applic topical apply bid daily prn. Small amount and massge in; estradiol 0.01 mg vaginal insert (20 sources) Estrogen Start: 07-17-2017 End: 04-07-2025 Estradiol 10 mcg tablet Discontinued 10 ug VAGINAL .COMPLEX 24 December 12, 2024 7:32pm April 07, 2025 8:22am 10 mcg VAGINAL 1 tab per vagina twice a week Start: 07-17-2017 End: 02-26-2023 Estradiol Discontinued 10 MC G VAGINAL .COMPLEX November 04, 2022 11:50am February 26, 2023 2:20pm 10 mcg VAGINAL 1 tab per vagina twice a week 12 hr fexofenadine hydrochloride 60 mg / pseudoephedrine hydrochloride 120 mg extended release oral tablet (8 sources) alpha-Adrenergic Agonist, Histamine-1 Receptor Antagonist Start: 09-28-2018 End: 01-13-2020 take 1 tablet by mouth every twelve hours as needed Fexofenadine-Pseudoephedrine 1 EACH tablet extended release 12 hr Discontinued 1 NMA PO DAILY as needed for ALLERGY September 28, 2018 12:00am January 13, 2020 8:36am Start: 09-28-2018 End: 01-13-2020 Fexofenadine-Pseudoephedrine Discontinued 1 EACH PO DAILY September 28, 2018 12:00am January 13, 2020 8:36am naproxen 500 mg oral tablet (8 sources) Nonsteroidal Anti-inflammatory Drug Start: 07-21-2018 End: 08-05-2018 take 1 tablet by mouth twice daily as needed Naproxen 500 MG tablet Discontinued 500 mg PO TWICE DAILY NEEDED July 21, 2018 1:00am August 05, 2018 10:54am ondansetron 4 mg disintegrating oral tablet (8 sources) Serotonin-3 Receptor Antagonist Start: 07-21-2018 End: 08-05-2018 take 1 tablet by mouth every eight hours as needed for nausea Ondansetron 4 MG tablet Discontinued 4 mg PO EVERY 8 HOURS NEEDED as needed for Nausea July 21, 2018 1:00am August 05, 2018 10:54am Problems Active Problems Problem Classification Problem Date Documented Date Episodic/Chronic Esophageal disorders (9 sources) Gastroesophageal reflux disease; Translations: [Gastro-esophageal reflux disease without esophagitis] Onset: 04-22-2025 10-02-2018 Chronic Headache; including migraine (8 sources) Migraine; Translations: [Migraine, unspecified, not intractable, without status migrainosus] 10-02-2018 Chronic Menopausal disorders (20 sources) Atrophic vaginitis; Translations: [Postmenopausal atrophic vaginitis] Chronic Comment on above: controlled with estr adiol tabs 05/08 EMB nl. No rec urrance Osteoarthritis (2 sources) Osteoarthritis of foot joint; Translations: [Primary osteoarthritis, left ankle and foot] Onset: 04-13-2019 01-25-2021 Chronic Other aftercare (1 source) Follow-up status; Translations: [Encounter for other orthopedic aftercare] Onset: 09-17-2021 09-19-2021 Episodic Other bone disease and musculoskeletal deformities (4 sources) Osteopenia; Translations: [Other specified disorders of bone density and structure, unspecified site] 04-07-2025 Episodic Other screening for suspected conditions (not mental disorders or infectious disease) (2 sources) Encounter for screening mammogram for malignant neoplasm of breast; Translations: [Encounter for screening for malignant neoplasm of cervix] Onset: 04-18-2025 Episodic Other skin disorders (11 sources) Lichen sclerosus et atrophicus; 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 Pt elected short term follow up. 11/2023:neg pap and HPV. Rpt 02/2025 Residual codes; unclassified (2 sources) Asymptomatic menopausal [...] Test Name Value Interpretation Reference Range Facility PAP I-G w/rfx hrHPV-Aptimaon 04-13-2025 ADEQ Comment Normal . [facility] Comment on above: Order Comment: Mera major Comment: [id number] Specimen Comment: No. of containers..01 ThinPrep Vial Result Comment: Sati sfactory for evaluation. No endocervical component is identified. Performed By: #### L 7400.0353 #### [facility] [address] [place], [place], [id number] COMM . Normal . [facility] Comment on above: Order Comment: Speci men Comment: [id number] Specimen Comment: No. of containers..01 ThinPrep Vial Performed By: #### L 7400.0353 #### [facility] [address] [place], [place], [id number] COMMENT Comment Normal . [facility] Comment on above: Order Comment: Speci men Comment: [id number] Specimen Comment: No. of containers..01 ThinPrep Vial Result Comment: This liquid based ThinPrep(R) pap test was screened with the use of an image guided system. Performed By: #### L 7400.0353 #### [facility] [address] [place], [place], [id number] DIAG Comment Normal . [facility] Comment on above: Order Comment: Speci men Comment: [id number] Specimen Comment: No. of containers..01 ThinPrep Vial Result Comment: NEGA TIVE FOR INTRAEPITHELIAL LESION OR MALIGNANCY. Performed By: #### L 7400.0353 #### [facility] [address] [place], [place], [address] HPV RFLX Comment Normal . [facility] Comment on above: Order Comment: Speci men Comment: [id number] Specimen Comment: No. of containers..01 ThinPrep Vial Result Comment: The HPV DNA reflex criteria were not met with this specimen result therefore, no HPV testing was performed. Performed at: - [facility] [id number] Cv/Cvn Cv Tsc System Operator: Nury Kaur MD, Phone: [phone] Performed By: #### L 7400.0353 #### [facility] [address] [place], [place], [id number] PAPSMR Comment Normal . [facility] Comment on above: Order Comment: Speci men Comment: [id number] Specimen Comment: No. of containers..01 ThinPrep Vial Result Comment: The Pap smear is a screening test designed to aid in the detection of premalignant and malignant conditions of the uterine cervix. It is not a diagnostic procedure and should not be used as the sole means of detecting cervical cancer. Both false-positive and false-negative reports do occur. Performed By: #### L 7400.0353 #### [facility] [address] [place], [place], [id number] PERFORM Comment Normal . [facility] Comment on above: Order Comment: Speci men Comment: [id number] Specimen Comment: No. of containers..01 ThinPrep Vial Result Comment: Aimee Price, Mineral Resources Inspector (ASCP) Performed By: #### L 7400.0353 #### [facility] [address] [place], [place], [id number] Absolute lymphocyte countOrd ered By: Noel Grace on 04-08-2025 Lymphocytes Auto (Unsp spec) [#/Vol] 1.90 10*3/uL 0.83-4.51 [facility] Absolute neutrophil countOrd ered By: Noel Grace on 04-08-2025 Neutrophils (Bld) [#/Vol] 1.7 10*3/uL Low 2.0-7.7 [facility] Anion gap in Serum or Plasma Ordered By: Noel Grace on 04-08-2025 Anion gap [Moles/Vol] 12 mmol/L 5-15 [facility] Automated lymphocyte count a s percentage of total leukocytesOrdered By: Noel Grace on 04-08-2025 Lymphocytes/100 WBC Auto (Unsp spec) 45.0 % High 19-41 [facility] BUN/creatinine ratioOrdered By: Noel Grace on 04-08-2025 Urea nitrogen/Creatinine [Mass ratio] 26.5 mg/mg High 10-20 [facility] Basophil percentageOrdered B y: Noel Grace on 04-08-2025 Basophils/100 WBC (Bld) 1.2 % High 0-1 [facility] Bilirubin, totalOrdered By: Noel Grace on 04-08-2025 Bilirubin [Mass/Vol] 0.39 mg/dL 0.00-1.30 [facility] CBC W/Diff, Automatedon 03-15 Absolute Lymph 1.90 X10 3/uL Normal 0.83-4.51 [facility] Comment on above: Order Comment: Order Date: 04/08/25 Order Info: 0184-1 - CBCD Performed By: #### L 100.0100, L500.4050 #### [facility] [address] [place], [address] Absolute Neut 1.7 X10 3/uL Low 2.0-7.7 [facility] Comment on above: Order Comment: Order Date: 04/08/25 Order Info: 0184-1 - CBCD Performed By: #### L 100.0100, L500.4050 #### [facility] [address] [place], [address] Basophils/100 WBC (Bld) 1.2 % High 0-1 [facility] Comment on above: Order Comment: Order Date: 04/08/25 Order Info: 0184-1 - CBCD Performed By: #### L 100.0100, L500.4050 #### [facility] [address] [place], [address] Eosinophils/100 WBC (Bld) 2.4 % Normal 0-5 [facility] Comment on above: Order Comment: Order Date: 04/08/25 Order Info: 0184-1 - CBCD Performed By: #### L 100.0100, L500.4050 #### [facility] [address] [place], [address] Erythrocyte distribution width (RBC) [Ratio] 13.2 % Normal 11.6-14.6 [facility] Comment on above: Order Comment: Order Date: 04/08/25 Order Info: 0184-1 - CBCD Performed By: #### L 100.0100, L500.4050 #### [facility] [address] [place], [address] Hematocrit (Bld) [Volume fraction] 40.5 % Normal 37-47 [facility] Comment on above: Order Comment: Order Date: 04/08/25 Order Info: 0184-1 - CBCD Performed By: #### L 100.0100, L500.4050 #### [facility] [address] [place], [address] Hemoglobin (Bld) [Mass/Vol] 13.6 g/dL Normal 12.0-15.0 [facility] Comment on above: Order Comment: Order Date: 04/08/25 Order Info: 0184-1 - CBCD Performed By: #### L 100.0100, L500.4050 #### [facility] [address] [place], [address] IG% 0.200 Normal 0.0-0.9 [facility] Comment on above: Order Comment: Order Date: 04/08/25 Order Info: 0184-1 - CBCD Result Comment: IG% - Immature Granulocytes (promyelocytes, myelocytes and metamyelocytes) > 1% indicates that a LEFT SHIFT is Present. Performed By: #### L 100.0100, L500.4050 #### [facility] [address] [place], [address] Lymphocytes/100 WBC (Bld) 45.0 % High 19-41 [facility] Comment on above: Order Comment: Order Date: 04/08/25 Order Info: 0184-1 - CBCD Performed By: #### L 100.0100, L500.4050 #### [facility] [address] [place], [address] MCH (RBC) [Entitic mass] 32.3 pg High 27.0-32.0 [facility] Comment on above: Order Comment: Order Date: 04/08/25 Order Info: 018- - CBCD Performed By: #### L 100.0100, L500.4050 #### [facility] [address] [place], [address] MCHC (RBC) [Mass/Vol] 33.6 g/dL Normal 32-36 [facility] Comment on above: Order Comment: Order Date: 04/08/25 Order Info: 0184- - CBCD Performed By: #### L 100.0100, L500.4050 #### [facility] [address] [place], [address] MCV (RBC) [Entitic vol] 96.2 fL Normal 81-99 [facility] Comment on above: Order Comment: Order Date: 04/08/25 Order Info: 0184-1 - CBCD Performed By: #### L 100.0100, L500.4050 #### [facility] [address] [place], [address] Monocytes/100 WBC (Bld) 11.8 % High 0-10 [facility] Comment on above: Order Comment: Order Date: 04/08/25 Order Info: 0184-1 - CBCD Performed By: #### L 100.0100, L500.4050 #### [facility] [address] [place], [address] Neutrophils/100 WBC (Bld) 39.4 % Low 47-70 [facility] Comment on above: Order Comment: Order Date: 04/08/25 Order Info: 0184-1 - CBCD Performed By: #### L 100.0100, L500.4050 #### [facility] [address] [place], [address] Nucleated RBC (Bld) [#/Vol] 0 10*3/uL Normal 0-5 [facility] Comment on above: Order Comment: Order Date: 04/08/25 Order Info: 018- - CBCD Performed By: #### L 100.0100, L500.4050 #### [facility] [address] [place], [address] Platelet mean volume (Bld) [Entitic vol] 10.7 fL Normal 6.2-12.0 [facility] Comment on above: Order Comment: Order Date: 04/08/25 Order Info: 018- - CBCD Performed By: #### L 100.0100, L500.4050 #### [facility] [address] [place], [address] Platelets (Bld) [#/Vol] 197 10*3/uL Normal 150-450 [facility] Comment on above: Order Comment: Order Date: 04/08/25 Order Info: 0184-1 - CBCD Performed By: #### L 100.0100, L500.4050 #### [facility] [address] [place], [address] RBC (Bld) [#/Vol] 4.21 10*6/uL Normal 4.2-5.4 [facility] Comment on above: Order Comment: Order Date: 04/08/25 Order Info: 0184-1 - CBCD Performed By: #### L 100.0100, L500.4050 #### [facility] [address] [place], [address] RDW SD 47.3 fl High 35.1-43.9 [facility] Comment on above: Order Comment: Order Date: 04/08/25 Order Info: 0184- - CBCD Performed By: #### L 100.0100, L500.4050 #### [facility] [address] [place], [address] WBC (Bld) [#/Vol] 4.2 10*3/uL Low 4.4-11.0 [facility] Comment on above: Order Comment: Order Date: 04/08/25 Order Info: 0184- - CBCD Performed By: #### L 100.0100, L500.4050 #### [facility] [address] [place], [address] Carbon dioxide, total [Moles /volume] in Central venous bloodOrdered By: Noel Grace on 04-08-2025 CO2 [Moles/Vol] 23.7 mmol/L 21.0-32.0 [facility] Chloride assayOrdered By: Melba Grace on 04-08-2025 Chloride [Moles/Vol] 105 mmol/L 98-108 [facility] Comprehensive Metabolic Prof ilon 04-08-2025 Albumin [Mass/Vol] 4.7 g/dL Normal 3.4-4.8 [facility] Comment on above: Order Comment: Order Date: 04/08/25 Order Info: 0786-1 - CMP Performed By: #### L 100.0100, L500.4050 #### [facility] [address] [place], [address] Albumin/Globulin [Mass ratio] 1.8 {ratio} Normal 0.9-2.4 [facility] Comment on above: Order Comment: Order Date: 04/08/25 Order Info: 0786-1 - CMP Performed By: #### L 100.0100, L500.4050 #### [facility] [address] [place], [address] ALK PHOS 76 U/L Normal 35-104 [facility] Comment on above: Order Comment: Order Date: 04/08/25 Order Info: 0786-1 - CMP Performed By: #### L 100.0100, L500.4050 #### [facility] [address] [place], [address] ALT [Catalytic activity/Vol] 28 U/L Normal <=34 [facility] Comment on above: Order Comment: Order Date: 04/08/25 Order Info: 0786-1 - CMP Performed By: #### L 100.0100, L500.4050 #### [facility] [address] [place], [address] AST [Catalytic activity/Vol] 32 U/L Normal <=31 [facility] Comment on above: Order Comment: Order Date: 04/08/25 Order Info: 0786-1 - CMP Performed By: #### L 100.0100, L500.4050 #### [facility] [address] [place], [address] Bilirubin [Mass/Vol] 0.39 mg/dL Normal 0.00-1.30 [facility] Comment on above: Order Comment: Order Date: 04/08/25 Order Info: 0786-1 - CMP Performed By: #### L 100.0100, L500.4050 #### [facility] [address] [place], [address] BUN/CRE 26.5 RATIO High 10-20 [facility] Comment on above: Order Comment: Order Date: 04/08/25 Order Info: 0786-1 - CMP Performed By: #### L 100.0100, L500.4050 #### [facility] [address] [place], [address] Calcium [Mass/Vol] 9.2 mg/dL Normal 7.6-11.0 [facility] Comment on above: Order Comment: Order Date: 04/08/25 Order Info: 0786-1 - CMP Performed By: #### L 100.0100, L500.4050 #### [facility] [address] [place], [address] Chloride [Moles/Vol] 105 mmol/L Normal 98-108 [facility] Comment on above: Order Comment: Order Date: 04/08/25 Order Info: 0786-1 - CMP Performed By: #### L 100.0100, L500.4050 #### [facility] [address] [place], [address] CO2 [Moles/Vol] 23.7 mmol/L Normal 21.0-32.0 [facility] Comment on above: Order Comment: Order Date: 04/08/25 Order Info: 0786-1 - CMP Performed By: #### L 100.0100, L500.4050 #### [facility] [address] [place], [address] Creatinine [Mass/Vol] 0.82 mg/dL Normal 0.70-1.20 [facility] Comment on above: Order Comment: Order Date: 04/08/25 Order Info: 0786-1 - CMP Performed By: #### L 100.0100, L500.4050 #### [facility] [address] [place], [address] GAP 12 Normal 5-15 [facility] Comment on above: Order Comment: Order Date: 04/08/25 Order Info: 0786-1 - CMP Performed By: #### L 100.0100, L500.4050 #### [facility] [address] [place], [address] GFR/1.73 sq M.predicted among non-blacks MDRD (S/P/Bld) [Vol rate/Area] 79 mL/min/{1.73_m2} Normal >60 [facility] Comment on above: Order Comment: Order Date: 04/08/25 Order Info: 0786-1 - CMP Result Comment: mL/m in/1.73m2 CKD-EPI Creatinine Equation (2020) Performed By: #### L 100.0100, L500.4050 #### [facility] [address] [place], [address] Globulin (S) [Mass/Vol] 2.5 g/dL Normal 2.2-4.2 [facility] Comment on above: Order Comment: Order Date: 04/08/25 Order Info: 0786-1 - CMP Performed By: #### L 100.0100, L500.4050 #### [facility] [address] [place], [address] Glucose [Mass/Vol] 91 mg/dL Normal 70-99 [facility] Comment on above: Order Comment: Order Date: 04/08/25 Order Info: 0786-1 - CMP Performed By: #### L 100.0100, L500.4050 #### [facility] [address] [place], [address] Potassium [Moles/Vol] 3.9 mmol/L Normal 3.3-5.1 [facility] Comment on above: Order Comment: Order Date: 04/08/25 Order Info: 0786-1 - CMP Performed By: #### L 100.0100, L500.4050 #### [facility] [address] [place], [address] Sodium [Moles/Vol] 140 mmol/L Normal 133-145 [facility] Comment on above: Order Comment: Order Date: 04/08/25 Order Info: 0786-1 - CMP Performed By: #### L 100.0100, L500.4050 #### [facility] [address] [place], [address] T PROT 7.2 g/dL Normal 5.9-8.4 [facility] Comment on above: Order Comment: Order Date: 04/08/25 Order Info: 0786-1 - CMP Performed By: #### L 100.0100, L500.4050 #### [facility] [address] [place], [place], [address] Urea nitrogen [Mass/Vol] 22 mg/dL High 4-19 [facility] Comment on above: Order Comment: Order Date: 04/08/25 Order Info: 0786-1 - CMP Performed By: #### L 100.0100, L500.4050 #### [facility] [address] [place], [place], [address] Eosinophil percentageOrdered By: Noel Grace on 04-08-2025 Eosinophils/100 WBC (Bld) 2.4 % 0-5 [facility] Erythrocyte distribution wid th ratioOrdered By: Noel Grace on 04-08-2025 Erythrocyte distribution width (RBC) [Ratio] 13.2 % 11.6-14.6 [facility] Erythrocyte distribution wid th standard deviationOrdered By: Noel Grace on 04-08-2025 Erythrocyte distribution width (RBC) [Ratio] 47.3 fl High 35.1-43.9 [facility] Glomerular filtration rate ( GFR) estimation/1.73 sq m using serum, plasma, or whole bOrdered By: Noel Grace on 04-08-2025 GFR/1.73 sq M.predicted among non-blacks MDRD (S/P/Bld) [Vol rate/Area] 79 mL/min/{1.73_m2} >60 [facility] Comment on above: mL/min/1.73m2 CKD-EP I Creatinine Equation (2020) Hematocrit Auto (Bld) [Volum e fraction]Ordered By: Noel Grace on 04-08-2025 Hematocrit (Bld) [Volume fraction] 40.5 % 37-47 [facility] Hemoglobin measurementOrdere d By: Noel Grace on 04-08-2025 Hemoglobin (Bld) [Mass/Vol] 13.6 g/dL 12.0-15.0 [facility] Immature granulocytes/100 WB C Auto (Bld)Ordered By: Noel Grace on 04-08-2025 Immature granulocytes/100 WBC (Bld) 0.200 % 0.0-0.9 [facility] Comment on above: IG% - Immature Granu locytes (promyelocytes, myelocytes and metamyelocytes) > 1% indicates that a LEFT SHIFT is Present. Laboratory - Chemistry and C hemistry - challengeOrdered By: Noel Grace on 04-08-2025 AST [Catalytic activity/Vol] 32 U/L <32 [facility] MCV (mean corpuscular volume ) determinationOrdered By: Noel Grace on 04-08-2025 MCV (RBC) [Entitic vol] 96.2 fL 81-99 [facility] Mean corpuscular hemoglobin (MCH) determinationOrdered By: Noel Grace on 04-08-2025 MCH (RBC) [Entitic mass] 32.3 pg High 27.0-32.0 [facility] Mean corpuscular hemoglobin concentration (MCHC) determinationOrdered By: Noel Grace on 04-08-2025 MCHC (RBC) [Mass/Vol] 33.6 g/dL 32-36 [facility] Mean platelet volume determi nationOrdered By: Noel Grace on 04-08-2025 Platelet mean volume (Bld) [Entitic vol] 10.7 fL 6.2-12.0 [facility] Monocyte percentageOrdered B y: Noel Grace on 04-08-2025 Monocytes/100 WBC (Bld) 11.8 % High 0-10 [facility] Neutrophil percentageOrdered By: Noel Grace on 04-08-2025 Neutrophils/100 WBC (Bld) 39.4 % Low 47-70 [facility] Nucleated red blood cell per centageOrdered By: Noel Grace on 04-08-2025 Nucleated RBC/100 WBC (Bld) [Ratio] 0 % 0-5 [facility] Platelet countOrdered By: Melba Grace on 04-08-2025 Platelets (Bld) [#/Vol] 197 10*3/uL 150-450 [facility] Potassium measurement (mass/ volume)Ordered By: Noel Grace on 04-08-2025 Potassium (Unsp spec) [Mass/Vol] 3.9 mmol/L 3.3-5.1 [facility] RBC Auto (Bld) [#/Vol]Ordere d By: Noel Grace on 04-08-2025 RBC (Bld) [#/Vol] 4.21 10*6/uL 4.2-5.4 [facility] SCRN MAMM (CAD)W/ROSEMARY BILATo n 04-08-2025 SCRN MAMM (CAD)W/ROSEMARY BILAT [facility] Imaging Services [address] [place] [address] SCRN MAMM (CAD)W/ROSEMARY BILAT MR#: [id number] Acct: [id number] Name: WENDY CANNON Rep #: [id number] : 1960 F 64 From: Letitia Campoverde i, MD PCP: Dr. 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 Bilateral Breast Mammographic Findings: No suspicious masses, calcifications or other abnormalities are identified. BI/SCRN MAMM (CAD)W/ROSEMARY BILAT IMPRESSION: No mammographic evidence of malignancy in either breast OVERALL FINAL ASSESSMENT BI-RADS 1: NEGATIVE. RECOMMENDATION: Routine annual follow-up in 1 Year Additional Recommendation none A letter with findings and recommendations will be mailed to the patient. Reading Location: [id number] CC: POURED CONCRETE WALL TECHNICIAN-C Bambi Molina; Dr. Noel Grace MD [employer]: Signed Normal [facility] Serum creatinine measurement (mass/volume)Ordered By: Noel Grace on 04-08-2025 Creatinine [Mass/Vol] 0.82 mg/dL 0.70-1.20 [facility] Serum globulin measurementOr dered By: Noel Grace on 04-08-2025 Globulin (S) [Mass/Vol] 2.5 g/dL 2.2-4.2 [facility] Serum glucose measurement (m ass/volume)Ordered By: Noel Grace on 04-08-2025 Glucose [Mass/Vol] 91 mg/dL 70-99 [facility] Serum or plasma alanine mcadams otransferase (ALT) measurementOrdered By: Noel Grace on 04-08-2025 ALT [Catalytic activity/Vol] 28 U/L <35 [facility] Serum or plasma albumin luna urement (mass/volume)Ordered By: Noel Grace on 04-08-2025 Albumin [Mass/Vol] 4.7 g/dL 3.4-4.8 [facility] Serum or plasma albumin/glob ulin mass ratioOrdered By: Noel Grace on 04-08-2025 Albumin/Globulin [Mass ratio] 1.8 {ratio} 0.9-2.4 [facility] Serum or plasma alkaline renee sphatase measurementOrdered By: Noel Grace on 04-08-2025 ALP [Catalytic activity/Vol] 76 U/L 35-104 [facility] Serum or plasma calcium luna urement (mass/volume)Ordered By: Noel Grace on 04-08-2025 Calcium [Mass/Vol] 9.2 mg/dL 7.6-11.0 [facility] Serum or plasma urea nitroge n measurement (mass/volume)Ordered By: Noel Grace on 04-08-2025 Urea nitrogen [Mass/Vol] 22 mg/dL High 4-19 [facility] Sodium levelOrdered By: Noel Grace on 04-08-2025 Sodium [Moles/Vol] 140 mmol/L 133-145 [facility] Total proteinOrdered By: Wesley Grace on 04-08-2025 Protein [Mass/Vol] 7.2 g/dL 5.9-8.4 [facility] Vitamin D,25 Hydroxyon 04-08 Vitamin D 25-OH 37.6 ng/mL Normal 30-100 [facility] Comment on above: Order Comment: Order Date: 04/08/25 Order Info: [id number] - CMP Result Comment: Kait min D Status Deficiency: <20 ng/mL (50nmol/L) Insufficiency: 20-30 ng/mL (50-75 nmol/L) Sufficiency: 30-100 ng/mL (75-250 nmol/L) Toxicity: >100 ng/mL (>250 nmol/L) Performed By: #### L [id number] #### [facility] [address] [place], [address] White blood cell (WBC) count Ordered By: Noel Grace on 04-08-2025 WBC (Bld) [#/Vol] 4.2 10*3/uL Low 4.4-11.0 [facility] Cervical or vagninal specime n microscopic examination by cytology stain (reported asOrdered By: Bambi Molina on 04-07-2025 Cytology report Cyto stain Doc (Cvx/Vag) Comment . [facility] Comment on above: The Pap smear is a s creening test designed to aid in thedetection of premalignant and malignant conditions of theuterine cervix. It is not a diagnostic procedure andshould not be used as the sole means of detecting cervicalcancer. Both false-positive and false-negative reports dooccur. Laboratory - CytologyOrdered By: Bambi Molina on 04-07-2025 Mineral Resources Inspector Cyto stain Nom (Cvx/Vag) [ID] Comment . [facility] Comment on above: Ann Price, Cytol ogist (ASCP) Laboratory - Miscellaneous t estsOrdered By: Bambi Molina on 04-07-2025 Service comment (Unsp spec) [Interp] . . [facility] No Panel InformationOrdered By: Bambi Molina on 04-07-2025 Pap Smear Specimen Adequacy Comment . [facility] Comment on above: Satisfactory for tani luation. No endocervical component is identified. 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 Date Name GA/Weeks Outcome Route Bth Weight Gen Labor Lgth Anesthesia Del Locatn Provider [...] oriented to person and oriented to place [facility] Head: normal to inspection Neck Neck: normal [...] normal Neuro (more content not included)... Normal [facility] Absolute lymphocyte countOrd ered By: Noel Grace on 11-18-2023 Lymphocytes Auto (Unsp spec) [#/Vol] 1.49 10*3/uL 0.83-4.51 [facility] Automated lymphocyte count a s percentage of total leukocytesOrdered By: Noel Grace on 11-18-2023 Lymphocytes/100 WBC Auto (Unsp spec) 39.6 % 19-41 [facility] Basophil percentageOrdered B y: Noel Grace on 11-18-2023 Basophils/100 WBC (Bld) 1.3 % 0-1 [facility] Bilirubin [Mass/Vol] 0.50 mg/dL 0.20-1.00 [facility] Comment on above: For patients on eltr ombopag therapy, use of Dimension [place] TBIL is not recommended. Chloride [Moles/Vol] 108 mmol/L 98-107 [facility] Eosinophils/100 WBC (Bld) 2.4 % 0-5 [facility] Glucose [Mass/Vol] 93 mg/dL 74-106 [facility] Hemoglobin (Bld) [Mass/Vol] 13.1 g/dL 12.0-15.0 [facility] Monocytes/100 WBC (Bld) 12.5 % 0-10 [facility] Neutrophils (Bld) [#/Vol] 1.7 10*3/uL 2.0-7.7 [facility] Neutrophils/100 WBC (Bld) 43.9 % 47-70 [facility] Potassium [Moles/Vol] 4.0 mmol/L 3.5-5.1 [facility] Protein [Mass/Vol] 7.2 g/dL 6.4-8.2 [facility] Sodium [Moles/Vol] 140 mmol/L 136-145 [facility] WBC (Bld) [#/Vol] 3.8 10*3/uL 4.4-11.0 [facility] Determination of erythrocyte mean corpuscular volume (MCV)Ordered By: Noel Grace on 11-18-2023 MCV (RBC) [Entitic vol] 96.6 fL 81-99 [facility] Erythrocyte distribution wid th ratioOrdered By: Noel Grace on 11-18-2023 Erythrocyte distribution width (RBC) [Ratio] 13.2 % 11.6-14.6 [facility] Erythrocyte distribution wid th standard deviationOrdered By: Noel Grace on 11-18-2023 Erythrocyte distribution width (RBC) [Entitic vol] 47.2 fL 35.1-43.9 [facility] Hematocrit Auto (Bld) [Volum e fraction]Ordered By: Noel Grace on 11-18-2023 Hematocrit (Bld) [Volume fraction] 39.3 % 37-47 [facility] Immature granulocytes/100 WB C Auto (Bld)Ordered By: Noel Grace on 11-18-2023 Immature granulocytes/100 WBC (Bld) 0.300 % 0.0-0.9 [facility] Comment on above: IG% - Immature Granu locytes (promyelocytes, myelocytes and metamyelocytes) > 1% indicates that a LEFT SHIFT is Present. Laboratory - Chemistry and C hemistry - challengeOrdered By: Noel Grace on 11-18-2023 Albumin/Globulin [Mass ratio] 1.1 {ratio} 0.9-2.4 [facility] ALP [Catalytic activity/Vol] 72 U/L 45-117 [facility] ALT [Catalytic activity/Vol] 24 U/L 13-56 [facility] CO2 [Moles/Vol] 27.0 mmol/L 21.0-32.0 [facility] Globulin (S) [Mass/Vol] 3.4 g/dL 2.2-4.2 [facility] Urea nitrogen/Creatinine [Mass ratio] 26.5 mg/mg 10-20 [facility] - Hematology and Cell countsOrdered By: Noel Grace on 11-18-2023 MCH (RBC) [Entitic mass] 32.2 pg 27.0-32.0 [facility] MCHC (RBC) [Mass/Vol] 33.3 g/dL 32-36 [facility] Nucleated RBC/100 WBC (Bld) [Ratio] 0 % 0-5 [facility] Platelet mean volume (Bld) [Entitic vol] 10.5 fL 6.2-12.0 [facility] Platelets (Bld) [#/Vol] 212 10*3/uL 150-450 [facility] No Panel InformationOrdered By: Noel Grace on 11-18-2023 Estimated GFR (MDRD) Amer 93 mL/min >60 [facility] Comment on above: GFR Calc Estimated GFR (MDRD) Non-Af Amer 77 mL/min >60 [facility] Comment on above: Non- GFR Calc Vitamin D 25-Hydroxy 32.4 ng/mL [facility] Comment on above: Vitamin D 25(OH) Sta tus Range Deficiency <20 ng/mL (50nmol/L) Insufficiency 20 - 30 ng/mL (50 - 75 nmol/L) Sufficiency 30 - 100 ng/mL (75 - 250 nmol/L) Toxicity >100 ng/mL (>250 nmol/L) RBC Auto (Bld) [#/Vol]Ordere d By: Noel Grace on 11-18-2023 RBC (Bld) [#/Vol] 4.07 10*6/uL 4.2-5.4 [facility] Serum or plasma calcium luna urement (mass/volume)Ordered By: Noel Grace on 11-18-2023 Calcium [Mass/Vol] 8.9 mg/dL 8.5-10.1 [facility] Serum or plasma creatinine m easurement (mass/volume)Ordered By: Noel Grace on 11-18-2023 Creatinine [Mass/Vol] 0.79 mg/dL 0.55-1.02 [facility] Comment on above: The validity of the calculated GFR & GFRAA in patients over 70 years has not been determined. Clinical correlation is essential. Serum or plasma urea nitroge n measurement (mass/volume)Ordered By: Noel Grace on 11-18-2023 Urea nitrogen [Mass/Vol] 21 mg/dL 7-18 [facility] Thin prep Papanicolaou smear with manual screeningOrdered By: Noel Grace on 11-18-2023 Thin prep Papanicolaou smear with manual screening 3.8 g/dL 3.2-5.0 [facility] Thin prep Papanicolaou smear with manual screening 26 U/L 15-37 [facility] Thin prep Papanicolaou smear with manual screening 5 5-15 [facility] Cervical or vagninal specime n microscopic examination by cytology stain (reported asOrdered By: Bambi Molina on 02-26-2023 Cytology report Cyto stain Doc (Cvx/Vag) Comment . [facility] Comment on above: The Pap smear [...] DNA Probe+sig amp Ql (Cvx) Negative Negative [facility] Detection in cervical specim en of any of human papilloma virus (HPV) 16, 18, 31, 33,Ordered By: Bambi Molina on 02-26-2023 HPV 16+18+31+33+35+39+45+51 +52+56+58+59+66+68 DNA Probe+sig amp Ql (Cvx) Positive Negative [facility] Comment on above: This nucleic acid am plification test detects fourteen high-risk HPV types (16,18,31,33,35,39,45,51,52,56,58,59,66,68)without differentiation. Laboratory - CytologyOrdered By: Bambi Molina on 02-26-2023 Mineral Resources Inspector Cyto stain Nom (Cvx/Vag) [ID] Comment . [facility] Comment on above: [place] Chavirate chnologist (ASCP) Laboratory - Miscellaneous t estsOrdered By: Bambi Molina on 02-26-2023 Service comment (Unsp spec) [Interp] Comment . [facility] Comment on above: This liquid based Th inPrep(R) pap test was screened withthe use of an image guided system. Service comment (Unsp spec) [Interp] . . [facility] Liquid-based cerv Pap + CT/G C by RAMONA w reflex to high-risk HPV for ASCUSOrdered By: Bambi Molina on 02-26-2023 Cytology report Cyto stain.thin prep Doc (Cvx/Vag) Comment . [facility] Comment on above: Criteria met, see HP V Genotype results. No Panel InformationOrdered By: Bambi Molina on 02-26-2023 HPV Type 18 Comment Negative Negative [facility] Comment on above: Performed at: [facility] - [facility] [address] [id number] Director: Nury Kaur MD, Phone: [phone] at: =G - [facility] [address] [id number] Director: Nury Kaur MD, Phone: [phone] Pathology report final diagnosis Narrative Comment . [facility] Comment on above: NEGATIVE FOR INTRAEP ITHELIAL LESION OR MALIGNANCY. Absolute lymphocyte countOrd ered By: Noel Grace on 11-29-2022 Lymphocytes Auto (Unsp spec) [#/Vol] 1.45 10*3/uL 0.83-4.51 [facility] Basophil percentageOrdered B y: Noel Grace on 11-29-2022 Basophils/100 WBC (Bld) 1.3 % 0-1 [facility] Bilirubin [Mass/Vol] 0.40 mg/dL 0.20-1.00 [facility] Comment on above: For patients on eltr ombopag therapy, use of Dim[place] TBIL is not recommended. Chloride [Moles/Vol] 109 mmol/L 98-107 [facility] Cholesterol [Mass/Vol] 179 mg/dL <200 [facility] Comment on above: <200 mg/dL Desirable 200-240 mg/dL Borderline >240 mg/dL High Risk Eosinophils/100 WBC (Bld) 2.6 % 0-5 [facility] Glucose [Mass/Vol] 94 mg/dL 74-106 [facility] Neutrophils (Bld) [#/Vol] 1.7 10*3/uL 2.0-7.7 [facility] Neutrophils/100 WBC (Bld) 45.1 % 47-70 [facility] Potassium [Moles/Vol] 4.2 mmol/L 3.5-5.1 [facility] Protein [Mass/Vol] 7.3 g/dL 6.4-8.2 [facility] Sodium [Moles/Vol] 141 mmol/L 136-145 [facility] Triglyceride [Mass/Vol] 52 mg/dL <199 [facility] Comment on above: The drugs N-Acetylcy steine and Metamizole may falsely depress this assay.Serum Triglycerides Reference Interval Normal <150 mg/dL Borderline high 150 - 199 mg/dL High 200 - 499 mg/dL Very High > or = 500 mg/dL WBC (Bld) [#/Vol] 3.8 10*3/uL 4.4-11.0 [facility] Blood erythrocytes count (nu mber/volume)Ordered By: Noel Grace on 11-29-2022 RBC (Bld) [#/Vol] 4.26 10*6/uL 4.2-5.4 [facility] Blood hemoglobin measurement (mass/volume)Ordered By: Noel Grace on 11-29-2022 Hemoglobin (Bld) [Mass/Vol] 13.8 g/dL 12.0-15.0 [facility] Blood lymphocytes/100 leukoc ytesOrdered By: Noel Grace on 11-29-2022 Lymphocytes/100 WBC (Bld) 37.9 % 19-41 [facility] Blood monocytes/100 leukocyt esOrdered By: Noel Grace on 11-29-2022 Monocytes/100 WBC (Bld) 12.8 % 0-10 [facility] Blood platelet mean volumeOr dered By: Noel Grace on 11-29-2022 Platelet mean volume (Bld) [Entitic vol] 10.5 fL 6.2-12.0 [facility] Determination of erythrocyte mean corpuscular volume (MCV)Ordered By: Noel Grace on 11-29-2022 MCV (RBC) [Entitic vol] 99.1 fL 81-99 [facility] Hematocrit Auto (Bld) [Volum e fraction]Ordered By: Noel Grace on 11-29-2022 Hematocrit (Bld) [Volume fraction] 42.2 % 37-47 [facility] - Chemistry and C hemistry - challengeOrdered By: Noel Grace on 11-29-2022 ALP [Catalytic activity/Vol] 71 U/L 45-117 [facility] ALT [Catalytic activity/Vol] 43 U/L 13-56 [facility] CO2 [Moles/Vol] 28.0 mmol/L 21.0-32.0 [facility] Globulin (S) [Mass/Vol] 3.5 g/dL 2.2-4.2 [facility] Urea nitrogen/Creatinine [Mass ratio] 31.9 mg/mg 10-20 [facility] - Hematology and Cell countsOrdered By: Noel Grace on 11-29-2022 Erythrocyte distribution width (RBC) [Entitic vol] 48.1 fL 35.1-43.9 [facility] Erythrocyte distribution width (RBC) [Ratio] 13.2 % 11.6-14.6 [facility] Immature granulocytes/100 WBC (Bld) 0.300 % 0.0-0.9 [facility] Comment on above: IG% - Immature Granu locytes (promyelocytes, myelocytes and metamyelocytes) > 1% indicates that a LEFT SHIFT is Present. MCH (RBC) [Entitic mass] 32.4 pg 27.0-32.0 [facility] Nucleated RBC/100 WBC (Bld) [Ratio] 0 % 0-5 [facility] MCHC Auto (RBC) [Mass/Vol]Or dered By: Noel Grace on 11-29-2022 MCHC (RBC) [Mass/Vol] 32.7 g/dL 32-36 [facility] No Panel InformationOrdered By: Noel Grace on 11-29-2022 Estimated GFR (MDRD) Amer 91 mL/min >60 [facility] Comment on above: GFR Calc Estimated GFR (MDRD) Non-Af Amer 75 mL/min >60 [facility] Comment on above: Non- GFR Calc Vitamin D 25-Hydroxy 48.0 ng/mL [facility] Comment on above: Vitamin D 25(OH) Sta tus Range Deficiency <20 ng/mL (50nmol/L) Insufficiency 20 - 30 ng/mL (50 - 75 nmol/L) Sufficiency 30 - 100 ng/mL (75 - 250 nmol/L) Toxicity >100 ng/mL (>250 nmol/L) Platelets bldOrdered By: Wesley Grace on 11-29-2022 Platelets (Bld) [#/Vol] 217 10*3/uL 150-450 [facility] Serum or plasma albumin luna urement (mass/volume)Ordered By: Noel Grace on 11-29-2022 Albumin [Mass/Vol] 3.8 g/dL 3.2-5.0 [facility] Serum or plasma albumin/glob ulin mass ratioOrdered By: Noel Grace on 11-29-2022 Albumin/Globulin [Mass ratio] 1.1 {ratio} 0.9-2.4 [facility] Serum or plasma calcium luna urement (mass/volume)Ordered By: Noel Grace on 11-29-2022 Calcium [Mass/Vol] 9.2 mg/dL 8.5-10.1 [facility] Serum or plasma cholesterol in HDL measurement (mass/volume)Ordered By: Noel Grace on 11-29-2022 Cholesterol in HDL [Mass/Vol] 76 mg/dL >40 [facility] Comment on above: The drugs N-Acetylcy steine and Metamizole may falsely depress this assay. Reference Range HDL <40 mg/dL Low HDL Cholesterol HDL >or= 60 mg/dL High HDL Cholesterol Serum or plasma cholesterol in VLDL measurement (mass/volume)Ordered By: Noel Grace on 11-29-2022 Cholesterol in VLDL [Mass/Vol] 10 mg/dL 5-40 [facility] Serum or plasma creatinine m easurement (mass/volume)Ordered By: Noel Grace on 11-29-2022 Creatinine [Mass/Vol] 0.82 mg/dL 0.55-1.02 [facility] Comment on above: The validity of the calculated GFR & GFRAA in patients over 70 years has not been determined. Clinical correlation is essential. Serum or plasma low density lipoprotein (LDL) cholesterol measurement (mass/volume)Ordered By: Noel Grace on 11-29-2022 Cholesterol in LDL [Mass/Vol] 93 mg/dL 0-130 [facility] Serum or plasma urea nitroge n measurement (mass/volume)Ordered By: Noel Grace on 11-29-2022 Urea nitrogen [Mass/Vol] 26 mg/dL 7-18 [facility] Thin prep Papanicolaou smear with manual screeningOrdered By: Noel Grace on 11-29-2022 Thin prep Papanicolaou smear with manual screening 39 U/L 15-37 [facility] Thin prep Papanicolaou smear with manual screening 4 5-15 [facility] Absolute lymphocyte counton 12-12-2021 Lymphocytes Auto (Unsp spec) [#/Vol] 1.44 10*3/uL 0.83-4.51 [facility] Work Phone: Basophil percentageon 2021 Basophils/100 WBC (Bld) 1.3 % 0-1 [facility] Work Phone: Bilirubin [Mass/Vol] 0.60 mg/dL 0.20-1.00 [facility] Work Phone: Comment on above: For patients on eltr ombopag therapy, use of Dimension [place] TBIL is not recommended. Chloride [Moles/Vol] 107 mmol/L 98-107 [facility] Work Phone: Eosinophils/100 WBC (Bld) 2.0 % 0-5 [facility] Work Phone: Glucose [Mass/Vol] 93 mg/dL 74-106 [facility] Work Phone: Neutrophils (Bld) [#/Vol] 1.9 10*3/uL 2.0-7.7 [facility] Work Phone: Neutrophils/100 WBC (Bld) 48.1 % 47-70 [facility] Work Phone: Potassium [Moles/Vol] 3.6 mmol/L 3.5-5.1 [facility] Work Phone: Protein [Mass/Vol] 7.5 g/dL 6.4-8.2 [facility] Work Phone: Sodium [Moles/Vol] 141 mmol/L 136-145 [facility] Work Phone: WBC (Bld) [#/Vol] 4.0 10*3/uL 4.4-11.0 [facility] Work Phone: Blood erythrocytes count (nu mber/volume)on 12-12-2021 RBC (Bld) [#/Vol] 3.97 10*6/uL 4.2-5.4 [facility]: Blood hemoglobin measurement (mass/volume)on 12-12-2021 Hemoglobin (Bld) [Mass/Vol] 12.9 g/dL 12.0-15.0 [facility] Work Phone: Blood lymphocytes/100 leukoc yteson 12-12-2021 Lymphocytes/100 WBC (Bld) 36.0 % 19-41 [facility] Work Phone: Blood monocytes/100 leukocyt eson 12-12-2021 Monocytes/100 WBC (Bld) 12.3 % 0-10 [facility] Work Phone: Blood platelet mean volumeon 12-12-2021 Platelet mean volume (Bld) [Entitic vol] 10.5 fL 6.2-12.0 [facility] Work Phone: Determination of erythrocyte mean corpuscular volume (MCV)on 12-12-2021 MCV (RBC) [Entitic vol] 98.2 fL 81-99 [facility] Work Phone: Hematocrit Auto (Bld) [Volum e fraction]on 12-12-2021 Hematocrit (Bld) [Volume fraction] 39.0 % 37-47 [facility] Work Phone: Laboratory - Chemistry and C hemistry - challengeon 12-12-2021 ALP [Catalytic activity/Vol] 76 U/L 45-117 [facility] Work Phone: ALT [Catalytic activity/Vol] 31 U/L 13-56 [facility] Work Phone: CO2 [Moles/Vol] 28.0 mmol/L 21.0-32.0 [facility] Work Phone: Globulin (S) [Mass/Vol] 3.5 g/dL 2.2-4.2 [facility] Work Phone: Urea nitrogen/Creatinine [Mass ratio] 31.6 mg/mg 10-20 [facility] Work Phone: Laboratory - Hematology and Cell countson 12-12-2021 Erythrocyte distribution width (RBC) [Entitic vol] 47.2 fL 35.1-43.9 [facility] Work Phone: Erythrocyte distribution width (RBC) [Ratio] 13.1 % 11.6-14.6 [facility] Work Phone: Immature granulocytes/100 WBC (Bld) 0.300 % 0.0-0.9 [facility] Work Phone: Comment on above: IG% - Immature Granu locytes (promyelocytes, myelocytes and metamyelocytes) > 1% indicates that a LEFT SHIFT is Present. MCH (RBC) [Entitic mass] 32.5 pg 27.0-32.0 [facility] Work Phone: Nucleated RBC/100 WBC (Bld) [Ratio] 0 % 0-5 [facility] Work Phone: MCHC Auto (RBC) [Mass/Vol]on 12-12-2021 MCHC (RBC) [Mass/Vol] 33.1 g/dL 32-36 [facility] Work Phone: No Panel Informationon 12-12 Estimated GFR (MDRD) Amer 90 mL/min >60 [facility] Work Phone: Comment on above: GFR Calc Estimated GFR (MDRD) Non-Af Amer 74 mL/min >60 [facility] Work Phone: Comment on above: Non- GFR Calc Vitamin D 25-Hydroxy 51.0 ng/mL [facility] Work Phone: Comment on above: Vitamin D 25(OH) Sta tus Range Deficiency <20 ng/mL (50nmol/L) Insufficiency 20 - 30 ng/mL (50 - 75 nmol/L) Sufficiency 30 - 100 ng/mL (75 - 250 nmol/L) Toxicity >100 ng/mL (>250 nmol/L) Platelets bldon 12-12-2021 Platelets (Bld) [#/Vol] 216 10*3/uL 150-450 [facility] Work Phone: Serum or plasma albumin luna urement (mass/volume)on 12-12-2021 Albumin [Mass/Vol] 4.0 g/dL 3.2-5.0 [facility] Work Phone: Serum or plasma albumin/glob ulin mass ratioon 12-12-2021 Albumin/Globulin [Mass ratio] 1.1 {ratio} 0.9-2.4 [facility] Work Phone: Serum or plasma calcium luna urement (mass/volume)on 12-12-2021 Calcium [Mass/Vol] 9.0 mg/dL 8.5-10.1 [facility] Work Phone: Serum or plasma creatinine m easurement (mass/volume)on 12-12-2021 Creatinine [Mass/Vol] 0.82 mg/dL 0.55-1.02 [facility] Work Phone: Comment on above: The validity of the calculated GFR & GFRAA in patients over 70 years has not been determined. Clinical correlation is essential. Serum or plasma urea nitroge n measurement (mass/volume)on 12-12-2021 Urea nitrogen [Mass/Vol] 26 mg/dL 7-18 [facility] Work Phone: Thin prep Papanicolaou smear with manual screeningon 12-12-2021 Thin prep Papanicolaou smear with manual screening 25 U/L 15-37 [facility] Work Phone: Thin prep Papanicolaou smear with manual screening 6 5-15 [facility] Work Phone: Clinical Summary: CristóbalBay shaka 10-29-2021 MC75 OP Visit Invalid Interpretation Code [facility] Work Phone: Vital Signs Date Time Vital Sign Value Performing Clinician Facility 04-07-2025 08:18-0400 Body height 160.[address] Noel Grace MD Work Phone: [facility] 04-07-2025 08:12-0400 Body mass index (BMI) [Ratio] 27.8 kg/m2 Dr. Noel Grace MD Work Phone: 2(189)774-457620 [place] [address] 04-07-2025 08:12-0400 Body weight 71.[address] Noel Grace MD Work Phone: 1(146)076-099720 [place] [address] 04-07-2025 08:12-0400 Diastolic blood pressure 82 mm[Hg] Dr. Noel Grace MD Work Phone: 8(820)520-192526 [address] 04-07-2025 08:12-0400 Systolic blood pressure 125 mm[Hg] Dr. Noel Grace MD Work Phone: 7(483)[phone] [address] 02-26-2023 14:01-0400 Body height 160.[address] Noel Grace Work Phone: 2(201)[phone] [address] 02-26-2023 13:58-0400 Body mass index (BMI) [Ratio] 26.8 kg/m2 Dr. Noel Grace Work Phone: 4(912)054-747020 [place] [address] 02-26-2023 13:58-0400 Body weight 68.[address] Noel Grace Work Phone: 2(837)959-042820 [place] [address] 02-26-2023 13:58-0400 Diastolic blood pressure 77 mm[Hg] Dr. Noel Grace Work Phone: 9(981)757-389920 [place] [address] 02-26-2023 13:58-0400 Systolic blood pressure 120 mm[Hg] Dr. Noel Grace Work Phone: [facility] 05-06-2022 15:20-0400 Body height 160.[address] Noel Grace Work Phone: [facility] Work Phone: 05-06-2022 15:15-0400 Body mass index (BMI) [Ratio] 26.8 kg/m2 Dr. Noel Grace Work Phone: [facility] Work Phone: 05-06-2022 15:15-0400 Body weight 68.[address] Noel Grace Work Phone: [facility] Work Phone: 05-06-2022 15:15-0400 Diastolic blood pressure 92 mm[Hg] Dr. Noel Grace Work Phone: [facility] Work Phone: 05-06-2022 15:15-0400 Systolic blood pressure 140 mm[Hg] Dr. Noel Grace Work Phone: [facility] Work Phone: 03-20-2022 11:33-0400 Body mass index (BMI) [Ratio] 27.5 kg/m2 Dr. Noel Grace Work Phone: [facility] Work Phone: 03-20-2022 11:33-0400 Body weight 70.[address] Noel Grace Work Phone: [facility] Work Phone: 03-20-2022 11:33-0400 Diastolic blood pressure 84 mm[Hg] Dr. Noel Grace Work Phone: [facility] Work Phone: 03-20-2022 11:33-0400 Systolic blood pressure 122 mm[Hg] Dr. Noel Grace Work Phone: [facility] Work Phone: 02-04-2022 08:54-0400 Body mass index (BMI) [Ratio] 27.3 kg/m2 Dr. Noel Grace Work Phone: [facility] Work Phone: 02-04-2022 08:54-0400 Body weight 69.[address] Noel Grace Work Phone: [facility] Work Phone: 02-04-2022 08:54-0400 Diastolic blood pressure 70 mm[Hg] Dr. Noel Grace Work Phone: [facility] Work Phone: 02-04-2022 08:54-0400 Systolic blood pressure 110 mm[Hg] Dr. Noel Grace Work Phone: [facility] Work Phone: 12-19-2021 08:32-0400 Body height 160.02 cm [facility] Work Phone: NEGATED: Highlighted [id number] 09:42-0400 Body height 160.02 cm [place] AT [facility] Work Phone: NEGATED: Highlighted [id number] 09:42-0400 Body height 160 cm Ruma [place] AT [facility] Work Phone: NEGATED: Highlighted [id number] 09:42-0400 Body mass index (BMI) [Ratio] 27.2 kg/m2 [place]ar[place]ma [place] AT [facility] Work Phone: NEGATED: Highlighted [id number] 09:42-0400 Body weight 69.4 kg [place]arishma [place] AT [facility] Work Phone: NEGATED: Highlighted [id number] 09:42-0400 Body weight 70 kg Ruma [place] AT [facility] Work Phone: Encounters Encounter Date Encounter Type Care Provider Facility Start: 04-08-[address] Noel Grace MD -[facility] Start: 04-08-2025 Patient encounter procedure Addy Whelan POURED CONCRETE WALL TECHNICIAN-C -[facility]patient [facility] Work Phone: Start: 04-07-2025 End: 04-07-[address] Noel Grace MD Work Phone: -Laboratory Specimen Start: 04-07-2025 End: 04-07-2025 Patient encounter procedure Bambi Molina [employer] TECHNICIAN-C -Laboratory Specimen Work Phone: Start: 04-07-2025 End: 04-07-2025 Patient encounter procedure Bambi Molina [employer]ED [employer]CR[employer]E WALL TECHNICIAN-C -[facility] Work Phone: Start: 04-07-2025 End: 04-07-2025 Patient encounter status Bambi Molina P[employer]ED [employer]CR[employer]E WALL TECHNICIAN-C [facility] Start: 04-07-2025 End: 04-08-[address] Noel Grace MD Work Phone: -[facility] Start: 04-07-2025 End: 04-07-2025 ambulatory Bambi Molina P[employer]ED [employer]CR[employer]E WALL TECHNICIAN Facility:[facility] Start: 11-18-2023 End: 11-18-2023 ambulatory [facility] Work Phone: Start: 11-18-2023 End: 11-18-2023 Patient encounter procedure [facility] Start: 03-03-2023 End: 03-03-[address] Noel Grace Work Phone: [facility] Work Phone: Start: 03-03-2023 End: 03-03-[address] Noel Grace Work Phone: [facility]-Outpatient Breast Imaging Work Phone: Start: 02-26-2023 End: 02-26-[address] Noel Grace Work Phone: [facility]-Laboratory, Specimen Work Phone: Start: 02-26-2023 End: 02-26-[address] Noel Grace Work Phone: [facility] Work Phone: Start: 11-29-2022 End: 11-29-2022 ambulatory [facility] Work Phone: Start: 11-29-2022 End: 11-29-2022 [facility] Start: 05-10-2022 End: 05-10-[address] Noel Grace Work Phone: [facility] Work Phone: Start: 05-10-2022 End: 05-10-[address] Noel Grace Work Phone: [facility]-Ultrasound[facility] Start: 05-06-2022 End: 05-06-[address] Noel Grace Work Phone: [facility]-Laboratory, Specimen Start: 05-06-2022 End: 05-06-[address] Noel Grace [facility] Phone: [facility] Start: 03-25-2022 End: 03-25-[address] Noel Grace Work Phone: [facility]-Physical Therapy Start: 03-20-2022 End: 03-20-[address] Noel Grace Work Phone: [facility] Start: 02-28-2022 End: 02-28-[address] Noel Grace Work Phone: [facility]-Outpatient Breast Imaging Start: 02-04-2022 End: 02-04-[address] Noel Grace Work Phone[facility] Start: 12-19-2021 End: 12-19-2021 Patient encounter procedure [facility]-Outpatient Bone Densitometry Start: 12-12-2021 End: 12-12-2021 Patient [facility] Procedures Date Procedure Procedure Detail Performing Clinician Start: 04-08-2025 Vitamin D, 25-hydrox y measurement Dr. Noel Grace MD Work Phone: Comment on above: Vitamin D StatusDefi ciency: <20 ng/mL (50nmol/L)Insufficiency: 20-30 ng/mL (50-75 nmol/L)Sufficiency: 30-100 ng/mL (75-250 nmol/L)Toxicity: >100 ng/mL (>250 nmol/L) Start: 04-08-2025 Screening mammography Kayla Grace MD Work Phone: Start: 04-07-2025 Liquid based cervica l cytology screening Dr. Noel Grace MD Work Phone: Comment on above: NEGATIVE FOR INTRAEP ITHELIAL LESION OR MALIGNANCY. This liquid based Th inPrep(R) pap test was screened withthe use of an image guided system. The HPV DNA reflex c riteria were not met with this specimenresult therefore, no HPV testing was performed.Performed at: [address] [id number] Director: Nury Kaur MD, Phone: [phone] Start: 03-03-2023 Screening mammography Kayla Grace Work [...] 10-29-2021 End: 10-29-2021 Docrev cur meds by eduardo Nicolas MD Work Phone: Start: 10-29-2021 End: [...] Treatment Date Care Activity Detail Author Start: 05-10-2025 DXA Bone [Mass/Area] Bone density [facility] Start: 05-05-2025 ambulatory Ambulatory Facility:[facility] Start: 05-05-2025 DXA Bone [Mass/Area] Bone density [facility] Start: 04-07-2025 Liquid based cervica l cytology screening [facility] Start: 10-29-2022 End: 10-29-2021 Radex foot complete minimum 3 views XR FOOT 3+ VWS-LT [facility] Work Phone: Start: 12-24-2021 End: 12-24-2021 Patient encounter procedure Appointment [facility] Work Phone: Start: 10-29-2021 End: 10-29-2021 Patient encounter procedure Appointment [facility] Work Phone: Start: 10-29-2021 End: 10-29-2021 Radex foot complete minimum 3 views XR FOOT 3+ VWS-LT [facility] Work Phone: Path report.final Dx Spec [facility] Payers Date Payer Category Payer Self-pay [id number] 2024 Medicare [id number] 2024 Unknown [id number] 2013 Unknown [id number] Medicare [id number] Private Health Insurance COUNTS INCLUDE 234 BEDS AT THE [facility] [id number] Unknown [id number] Unknown [id number] [id number] [id number] Unknown [id number] 2.16.8 [id number] Unknown [id number] 2.16.8 [id number] Unknown [id number] 2.16.8 [id number] Unknown [id number] 2.16.8 [id number] Social History Date Type Detail Facility Start: 02-01-2021 End: 02-26-2023 Assertion Unknown if ever smoked [facility] Work Phone: Start: 1960 Sex Assigned At Female [facility] Start: 02-26-2023 Tobacco smoking stat us NHIS Never smoked tobacco (finding) [facility] Sex Female [facility] Clinical Notes 10-29-2021 to 04-07-2025 Note Date & Type Note Facility 04-07-2025 Evaluation note Diagnosis Onset Date Resolution Atrophic vaginitis acute Septem naga 2024 8:11am Lichen sclerosus acute Septembe r 2024 8:11am Osteopenia acute March 8:11am Positive test for human papillomavirus (HPV) acute March 152024 8:11am Encounter for routine gynecological examination noneactive April 07, 2025 8:11am [facility] Work Phone: 1(513) 115-665709-25-2025 [facility] [address] [place] [address], [address] [place] [address] OFFICE VISIT Date of Service: 04/07/25 MR#: [id number] Acct: [id number] Name: WENDY CANNON Rep #: [id number] : 1960 Provider: MARIE Molina Age/Sex: 64/F [place] [facility] Status: Signed Intake Vital Signs 03/16/24 08:21 04/07/25 08:12 04/07/25 08:18 Height 5 ft 3 in 5 ft 3 in 5 ft 3 in Weight: 157 lb 6 oz BMI 27.8 BP 125/82 H 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 Is patient in pain?: No Allergies shellfish derived Allergy (Mild, Verified 04/07/25 08:12) NEEDS FOLLOW-UP Medications ?Medication ?Instructions ?Recorded ?Confirmed ?Type rizatriptan 10 mg tablet (Maxalt) 10 mg PO ONCE PRN Mi graine Symptoms 08/05/18 04/07/25 History multivitamin with folic acid 400 1 tab PO DAILY SUPPLE MENT 09/28/18 04/07/25 History mcg tablet pantoprazole 40 mg tablet,delayed 20 mg PO DAILY PRN G ERD 02/04/22 04/07/25 History release clobetasol 0.05 % topical ointment 1 applic topical .C OMPLEX #15 grams 04/07/25 04/07/25 Rx estradiol 10 mcg vaginal tablet 10 mcg vaginal .COMPLE X #24 tabs 04/07/25 04/07/25 Rx Is last menstrual period [...] safe at home: Yes additional social history: [id number] History 3 Elective abortions Hx Para 3 Spontaneous abortions Hx # Term Pregnancies Ectopic pregnancies Hx # Pregnancies Multiple births # of living children Past Pregnancies Del. Date Name GA/Weeks Outcome Route Bth Weight Infant Gen Labor Lgth Anesthesia Del Locatn Provider FOB Unknown 1983 Qasimer Unknown 1985 Ronald Male Unknown 1988 Jennifer [...] difficulty voiding, pelvic pain, urinary frequency, urinary incontinence,urinary urgency, vaginal discharge or vaginal pruritus Exam Const General: cooperative, healthy appearing, no acute distress and well developed Orientation: alert, oriented to person and oriented to place HENSC Head: normal to inspection Neck Neck: normal visual inspection Thyroid: thyroid normal Lymphatic: no lymphadenopathy noted Chest Breast inspection: normal inspection of the breasts and normal inspection of theaxillae Breast palpation: normal palpation of the breasts, normal palpation of the axillae and no axillary lymphadenopathy Resp Effort & Inspection: normal respiratory effort GI Palpation: soft, no masses and nontender Rectal Exam: deferred External Female Exam: normal external appearance and normal appearance of the urethra Urethra: normal appearance of the urethra and normal palpation Speculum Exam - Vagina: normal appearance of the vagina (good esrogen effect, nosilver whitening) and normal vaginal discharge Speculum Exam - Cervix: normal appearance of the cervix Bimanual Exam- Vagina & Uterus: normal bimanual exam, uterine size normal, uterine shape normaland non-tender Bimanual Exam- Adnexa, other: normal adnexae, no masses, normal and non-tender Pelvic Support: normal Neuro General: patient alert and patient oriented x3 Psych Affect: normal affect Coding Level of Care Code Pelvic/Breast Diagnoses Encounter for gynecological examination with abnormal finding Z01.411 Gynecological examination findings: abnormal findings PRESENT Positive test for human papillomavirus (HPV) Lichen sclerosus L90.0 Atrophic vaginitis N95.2 Osteopenia, unspecified location M85.80 Osteopenia location: unspecified Assessment and Plan Assessment and Plan (1) Encounter for routine gynecological examination: Qualifiers: Gynecological examination findings: abnormal findings PRESENT QualifiedCode(s): Z01.411 - Encounterfor gynecological examination (general) (routine) with abnormal findings (2) Positive test for human papillomavirus (HPV): Status: Acute Comment: 02/2023 neg pap, pos HPV. Pt elected short term follow up. 11/2023:neg pap and HPV. Rpt 02/2025 (3) Lichen sclerosus: Status: Acute Comment: controlled with clobetesol (4) Atrophic vaginitis: Status: Acute Comment: controlled with estradiol tabs (5) Osteopenia: Status: Acute Qualifiers: Osteopenia location: unspecified Qualified Code(s): M85.80 - Other specified disorders of bone density and structure, unspecified site Orders: Orders SCRN MAMM (CAD)W/ROSEMARY BILAT 04/08/25 Z12.31 - Encounter for screening mammogramfor malignant neoplasm of breast Dexa Bone Density Study Today Z78.0 - Asymptomatic menopausal state Medications: Refilled estradiol 10 mcg VAGINAL 1 tab per vagina twice a week 24 tabs 3RF clobetasol 0.05% 1 application topical to affected area once a week. For symptoms use daily for 5 days prn, small amount and massage in; 15 grams 2RF Plan Completed breast and pelvic exam Reviewed diet and exercise Pap thin prep pap with HPV Mammogram scheduled breast self exam encouraged monthly Refill clobetesol and yuvafem Colonoscopy 2019 Bone density ordered RTO 1 year, prn with problems Bambi Molina [employer]DS SUPERINTENDENT 04/07/25 0832 s POURED CONCRETE WALL TECHNICIAN POURED CONCRETE WALL TECHNICIAN-C> Date _ Bambi Molina POURED CONCRETE WALL TECHNICIAN POURED CONCRETE WALL TECHNICIAN-C Cosigner Signature: Date (if applicable) CC: ~ [facility]08-16-2023 NotePap Smear Specimen AdequacyAugust 2022 5:08pmComment.Satisfactory for evaluation. Endocervical and/or squamous metaplasticcells (endocervical component)are present.[facility] A#[id number] HospitalComment on above:Satisfactory for evaluation. Endocervical and/or squamous metaplasticcells (endocervical component)are present.10-29-2021 Instructions* Instruction Description Start Date CompletedPatient advised to follow-up with Primary Care Physician for BMI management. [facility] Work Phone: Evaluation noteThere may be information available, but it has not been provided by the sender.[facility] Work Phone: Evaluation noteNo assessment information available [facility] Work Phone: Evaluation note* Diagnosis Onset Date Resolution Status Atrophic vaginitis acute Lichen sclerosus acute Encounter for routine gynecological examination noneactive Atrophic vaginitis acute Lichen sclerosus acute Postmenopausal bleeding acut e [facility] Work Phone: Evaluation note* Diagnosis Onset Date Resolution Status Atrophic vaginitis acute Lichen sclerosus acute Encounter for routine gynecological examination noneactive [facility] Work Phone: Evaluation note* Diagnosis Onset Date Resolution Status Admit Date Atrophic vaginitis acute 2024 8:11am Lichen sclerosus acute 2024 8:11am Osteopenia acute March 8:11am Positive test for human papillomavirus (HPV) acute March 152024 8:11am Encounter for routine gynecological examination noneactive 2024 8:11am [facility] Work Phone: Progress note Author Bambi Molina [facility] Note Date/Time April 07, 2025 8:31am [facility] [address] [place] [address], [address] [place] [address] OFFICE VISIT Date of Service: 04/07/25 MR#: [id number] Acct: [id number] Name: WENDY CANNON Rep #: [id number] : 1960 Provider: MARIE Molina Age/Sex: 64/F [place] [facility] [place] Status: Signed Intake Vital Signs 03/16/24 08:21 04/07/25 08:12 04/07/25 08:18 Height 5 ft 3 in 5 ft 3 in 5 ft 3 in Weight: 157 lb 6 oz BMI 27.8 BP 125/82 H 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 Is patient in pain?: No Allergies shellfish derived Allergy (Mild, Verified 04/07/25 08:12) NEEDS FOLLOW-UP Medications ?Medication ?Instructions ?Recorded ?Confirmed ?Type rizatriptan 10 mg tablet (Maxalt) 10 mg PO ONCE PRN Mi graine Symptoms 08/05/18 04/07/25 History multivitamin with folic acid 400 1 tab PO DAILY SUPPLE MENT 09/28/18 04/07/25 History mcg tablet pantoprazole 40 mg tablet,delayed 20 mg PO DAILY PRN G ERD 02/04/22 04/07/25 History release clobetasol 0.05 % topical ointment 1 applic topical .C OMPLEX #15 grams 04/07/25 04/07/25 Rx estradiol 10 mcg vaginal tablet 10 mcg vaginal .COMPLE X #24 tabs 04/07/25 04/07/25 Rx Is last menstrual period known: No Post menopausal: Yes Patient : No : [facility] Postmenopausal bleeding Migraines GERD (gastroesophageal [...] safe at home: Yes additional social history: [id number] History 3 Elective abortions Hx Para 3 Spontaneous abortions Hx # Term Pregnancies Ectopic pregnancies Hx # Pregnancies Multiple births # of living children Past Pregnancies Del. Date Name GA/Weeks Outcome Route Bth Weight Infant Gen Labor Lgth Anesthesia Del Locatn Provider FOB Unknown 1983 Christopher Unknown 1985 Ronald Male Unknown 1988 [facility] Female HPI Encounter for routine gynecological examination [...] difficulty voiding, pelvic pain, urinary frequency, urinary incontinence,urinary urgency, vaginal discharge or vaginal pruritus Exam Const General: cooperative, healthy appearing, no acute distress and well developed Orientation: alert, oriented to person and oriented to place HENMT Head: normal to inspection Neck Neck: normal visual inspection Thyroid: thyroid normal Lymphatic: no lymphadenopathy noted Chest Breast inspection: normal inspection of the breasts and normal inspection of theaxillae Breast palpation: normal palpation of the breasts, normal palpation of the axillae and no axillary lymphadenopathy Resp Effort & Inspection: normal respiratory effort GI Palpation: soft, no masses and nontender Rectal Exam: deferred External Female Exam: normal external appearance and normal appearance of the urethra Urethra: normal appearance of the urethra and normal palpation Speculum Exam - Vagina: normal appearance of the vagina (good esrogen effect, nosilver whitening) and normal vaginal discharge Speculum Exam - Cervix: normal appearance of the cervix Bimanual Exam- Vagina & Uterus: normal bimanual exam, uterine size normal, uterine shape normal and non-tender Bimanual Exam- Adnexa, other: normal adnexae, no masses, normal and non-tender Pelvic Support: normal Neuro General: patient alert and patient oriented x3 Psych Affect: normal affect Coding Level of Care Code Pelvic/Breast Diagnoses Encounter for gynecological examination with abnormal finding Z01.411 Gynecological examination findings: abnormal findings PRESENT Positive test for human papillomavirus (HPV) Lichen sclerosus L90.0 Atrophic vaginitis N95.2 Osteopenia, unspecified location M85.80 Osteopenia location: unspecified Assessment and Plan Assessment and Plan (1) Encounter for routine gynecological examination: Qualifiers: Gynecological examination findings: abnormal findings PRESENT QualifiedCode(s): Z01.411 - Encounter for gynecological examination (general) (routine) with abnormal findings (2) Positive test for human papillomavirus (HPV): Status: Acute Comment: 02/2023 neg pap, pos HPV. Pt elected short term follow up. 11/2023:neg pap and HPV. Rpt 02/2025 (3) Lichen sclerosus: Status: Acute Comment: controlled with clobetesol (4) Atrophic vaginitis: Status: Acute Comment: controlled with estradiol tabs (5) Osteopenia: Status: Acute Qualifiers: Osteopenia location: unspecified Qualified Code(s): M85.80 - Other specified disorders of bone density and structure, unspecified site Orders: Orders SCRN MAMM (CAD)W/ROSEMARY BILAT 04/08/25 Z12.31 - Encounter for screening mammogramfor malignant neoplasm of breast Dexa Bone Density Study Today Z78.0 - Asymptomatic menopausal state Medications: Refilled estradiol 10 mcg VAGINAL 1 tab per vagina twice a week 24 tabs 3RF clobetasol 0.05% 1 application topical to affected area once a week. For symptoms use daily for 5 days prn, small amount and massage in; 15 grams 2RF Plan Completed breast and pelvic exam Reviewed diet and exercise Pap thin prep pap with HPV Mammogram scheduled breast self exam encouraged monthly Refill clobetesol and yuvafem Colonoscopy 2018 Bone density ordered RTO 1 year, prn with problems Bambi Molina [employer]DS SUPERINTENDENT 04/07/25 0832 <Electronically signed by Bambi gunter POURED CONCRETE WALL TECHNICIAN POURED CONCRETE WALL TECHNICIAN-C> Date _ Bambi Molina POURED CONCRETE WALL TECHNICIAN POURED CONCRETE WALL TECHNICIAN-C Cosigner Signature: Date (if applicable) CC: ~ [facility] Work Phone: Reason for referral (narrative)No reason for referral information [facility] Phone: Chief Complaint Chief Complaint Description [...] June 8:12am Living Will Yes June 22, 2 019 2:17pm Power of Nursing Staff Development Coordinator Yes June 22, 2019 2:17pm Advance Directive Response Recorded Date/ Time Advance Directives Yes June 7:12am Living Will Yes June 22, 2 019 1:17pm Power of Nursing Staff Development Coordinator Yes June 22, 2019 1:17pm Advance Directive Response Recorded Date/ Time Advance Directives Yes June 8:12am Family History No Family History Records Found Relationship Condition Age at Onset Recorded Date/T guerda mother Hypertension Unknown father Kidney disorder Unknown Chief Complaint and Reason for Visit Chief Complaint OSTEOPENIA Chief Complaint 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 CHECK OA L HINDFOOT,AFTERCARE;INSUFFICIENT TIB TENDON EMB BLEEDING Reason for Visit Atrophic vaginitis Lichen sclerosus Encounter for routine gynecological examination Atrophic vaginitis Lichen sclerosus Postmenopausal bleeding Chief Complaint 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 Reason for Visit Atrophic vaginitis Lichen sclerosus Encounter for routine gynecological examination Chief Complaint Admit Date 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 Noel Grace MD Primary care physician Active Team Status: Inactive Member Role/Relationship Status Dates Dr. Noel Grace MD Primary care physician Active Start: April 07, 2025 End: April 07, 2025 Dr. Noel Grace MD Referring Provider Active Start: April 07, 2025 End: April 07, 2025 Bambi Molina POURED CONCRETE WALL TECHNICIAN, POURED CONCRETE WALL TECHNICIAN-C Attending physician Active Start: April 07, 2025 End: April 07, 2025 Team Status: Active Member Role/Relationship Status Dates Dr. Noel Grace MD Primary care physician Active Start: April 07, 2025 Bambi Molina POURED CONCRETE WALL TECHNICIAN, POURED CONCRETE WALL TECHNICIAN-C Attending physician Active Start: April 07, 2025 Bambi Molina POURED CONCRETE WALL TECHNICIAN, POURED CONCRETE WALL TECHNICIAN-C Referring Provider Active Start: April 07, 2025 Team Status: Active Member Role/Relationship Status Dates Dr. Noel Grace MD Primary care physician Active Start: April 08, 2025 Addy Cox [place] POURED CONCRETE WALL TECHNICIAN, POURED CONCRETE WALL TECHNICIAN-C Attending physician Active Start: April 08, 2025 Addy [place] POURED CONCRETE WALL TECHNICIAN, POURED CONCRETE WALL TECHNICIAN-C Referring Provider Active Start: April 08, 2025 Bambi Molina POURED CONCRETE WALL TECHNICIAN, POURED CONCRETE WALL TECHNICIAN-C Nurse Practitioner Active Start: April 08, 2025 Team Status: Active Member Role/Relationship Status Dates Dr. Noel Grace MD Primary care physician Active Start: April 08, 2025 Dr. Noel Grace MD Attending physician Active Start: April 08, 2025 Dr. Noel Grace MD Referring Provider Active Start: April 08, 2025 Team Status: Inactive Member Role/Relationship Status Dates Dr. Noel Grace MD Primary care physician Active Start: April 07, 2025 End: April 07, 2025 Bambi Molina POURED CONCRETE WALL TECHNICIAN, POURED CONCRETE WALL TECHNICIAN-C Attending physician Active Start: April 07, 2025 End: April 07, 2025 Bambi Molina POURED CONCRETE WALL TECHNICIAN, POURED CONCRETE WALL TECHNICIAN-C Referring Provider Active Start: April 07, 2025 End: April 07, 2025 INFORMATION SOURCE (unrecogn ized section and content) DATE CREATED AUTHOR 04/27/2025 [facility] FOR RECORDS PERTAINING TO PATIENTS WHO ARE [...] BE BASED ON THE PRIMARY CLINICAL RECORDS. [email or web address] [facility]. provides no warranty or guarantee of the accuracy or completeness of information in this document.
== END | disposition home or self-care (01) ==
LOC: OPBD 08:50
PROVIDERS: PCP Family Medicine; Referring Provider Nurse Practitioner Women's Health; Visit Provider Nurse Practitioner Women's Health
DX: M85.80 Other specified disorders of bone density and structure, unspecified site (principal); Z78.0 Asymptomatic menopausal state
CPT/HCPCS: 77080